=== PATIENT | male | born 1935 | race Caucasian/White ===

== ENCOUNTER 2020-11-19 11:27 | Inpatient (IN) | payer OTHER ==
--- NOTE | 2020-11-19 11:43 | R.PREADM ---
PRE-ADMISSION SCREENING FORM SCREENING DATE AND TIME 11/17/2020 12:09 (CDT) ANTICIPATED REHAB ADMISSION DATE 11/19/2020 REFERRING FACILITY [facility] REFERRAL DATE AND TIME 11/17/2020 12:09 (CDT) REFERRAL ROOM# [id number] ACUTE ADMIT DATE 11/19/2020 Previous Rehabilitation(s): No. ACUTE PRE PLANNING ADVISOR/DC COPIER REPAIR TECHNICIAN KRZYSZTOF GREENE ATTENDING PHYSICIAN ROBERTO ANDERSON MD REFERRING PHYSICIAN Víctor Patino REHAB FACILITY [facility] CLINICAL LIAISON [place]ata PHYSICIAN REVIEWER Dr. Carlos Webb M.D. MR# [id number] NAME DARYL MONTEZ ADDRESS [address] [facility] [address] DATE OF 1935 AGE 85 SSN# [id number] GENDER male MARITAL STATUS PREF. LANGUAGE (IF NON-YAKUT) German ADMIT FROM 02 - [facility] PRE-HOSPITAL LIVING SETTING 01 - Home (private home/apt. board/care, assisted living, nursing home, transitional living) HOME TYPE AND DETAILS Type of home: single family house # of levels in the residence: 1 # of steps within the residence: 0 # of steps to enter the residence: 0 PRE-HOSPITAL LIVING WITH Family/Relatives FAMILY SUPPORT Yes PRIMARY FAMILY CONTACT NAME LLOYD MONTEZ PRIMARY FAMILY CONTACT PHONE PRIMARY FAMILY CONTACT RELATIONSHIP Spouse PHONE PRIMARY FAMILY CONTACT ON ADM.? no IS PRIMARY FAMILY CONTACT AUTH. REP.? no 1ST EMERGENCY CONTACT LLOYD MONTEZ 1ST CONTACT PHONE 1ST CONTACT RELATIONSHIP Spouse PHONE 1ST CONTACT ON ADM. no IS 1ST CONTACT AUTH. REP.? no PHONE 2ND CONTACT ON ADM.? no PATIENT EMPLOYMENT STATUS Retired (for age) PATIENT EMPLOYER No Employer PAYOR INFORMATION: 1ST PAYOR NAME MEDICARE 1ST PAYOR PHONE 1ST PAYOR INJURY/ILLNESS DUE TO ACCIDENT? No ANOTHER LIBERTARIAN RESPONSIBLE? No PRIMARY REHAB/ACUTE DIAGNOSIS: ABSCESS OF LOWER LEG, FAILURE OF JOINT FUSION. 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 is a 85 yo Right-handed male. On 11/11/2020 he was admitted to [facility] with diagnosis ABSCESS OF LOWER LEG, FAILURE OF JOINT FUSI ON. RETAINED ORTH HARD. His impairment category is Orthopaedic Disorders 08 - Other Orthopaedic (08.9). Pre-morbidly, Pt. was independent/mod-I in Locomotion, Balance, Transfers Control, and Endurance; and he had good Sphincter Control. Currently, he has deficits of Transfers Control, Endurance, and Sphincter Control. Pt. is now referred to [facility] for acute in-patient rehabilitation in order to maximize patient's functional independence in activities of daily living, strength, ROM, and mobi lity. Patient has realistic goal of being discharged at assistance level 7-Ind to reside at Home with Fami ly/Relatives. PAST MEDICAL HISTORY AFIB hypercholestrolemia PNEUMONIA PROSTATE CANCER RENAL DISORDER STAGE 4 KIDNEY DISEASE PAST SURGICAL HISTORY: ANKLE SURGERY CORONARY ARTERY BYPASS GRAFT ARM SURGERY MEDICATION ALLERGIES: PENICILLIN ENVIRONMENTAL ALLERGIES: - Substance Allergies None Known - Other Allergies None Known CODE STATUS: Full code WEIGHT/HEIGHT/BMI: WEIGHT 204 lbs HEIGHT 6'2 BMI 26.2 DIET: - Diet Type Regular - Diet - Solid Texture Regular - Diet - Liquid Texture Regular - Tube Feed N/A REVIEW OF SYSTEMS: - Gen Alert and awake Lying in bed No apparent distress Oriented to: person, time, and place - Vital Signs Temperature: 98 F SBP/DBP: 131/65 Pulse: 68 Resp: 18 Vital signs stable, afebrile - CVS RRR VITAL SIGNS Temperature: 98 F SBP/DBP: 131/65 Pulse: 68 Resp: 18 Vital signs stable, afebrile MEDICATIONS/TREATMENT: Other- See attached MAR (Medication Administration Record). CURRENT SPHINCTER CONTROL: Pre-hospital bladder status: unspecified # of bladder accidents in the last 7 days prior to screenin Pre-hospital bowel status: unspecified # of bowel accidents in the last 7 days prior to screenin Last Bowel Movement Date: 11/17/2020 CURRENT LOCOMOTION STATUS: distance walked 5 feet DETAILED CURRENT FUNCTIONAL STATUS: - Bladder accident frequency: 7-Ind - No accidents in the past 7 days - Bowel accident frequency: 7-Ind - No accidents in the past 7 days - Walking score based on distance walked: 0(N/A) score based on distance walked: 1(<=50ft) - Wheelchair score based on distance traveled: 0(N/A) QI SCORES: - Self-Care A. Eating 03-Partial/moderate assistance B. Oral hygiene 03-Partial/moderate assistance C. Toileting hygiene 03-Partial/moderate assistance E. Shower/bathe self 03-Partial/moderate assistance F. Upper body dressing 03-Partial/moderate assistance G. Lower body dressing 03-Partial/moderate assistance H. Putting on/taking off footwear 88-Not attempted due to medical condition or safety concerns - Mobility A. Roll left and right 04-Supervision or touching assistance B. Sit to lying 04-Supervision or touching assistance C. Lying to sitting on side of bed 03-Partial/moderate assistance D. Sit to stand 03-Partial/moderate assistance E. Chair/bua-jy-gsuju transfer 03-Partial/moderate assistance F. Toilet transfer 03-Partial/moderate assistance G. Car transfer 88-Not attempted due to medical condition or safety concerns I. Walk 10 feet 88-Not attempted due to medical condition or safety concerns J. Walk 50 feet with two turns 88-Not attempted due to medical condition or safety concerns K. Walk 150 feet 88-Not attempted due to medical condition or safety concerns L. Walking 10 feet on uneven surfaces 88-Not attempted due to medical condition or safety concerns M. 1 step (curb) 88-Not attempted due to medical condition or safety concerns N. 4 steps O. 12 steps 88-Not attempted due to medical condition or safety concerns P. Picking up object 88-Not attempted due to medical condition or safety concerns R. Wheel 50 feet with two turns 88-Not attempted due to medical condition or safety concerns S. Wheel 150 feet 88-Not attempted due to medical condition or safety concerns - Bladder and Bowel Bladder continence Bowel continence - Endurance Fair - Balance Fair - Safety Awareness Fair CURRENT FUNC. DEFICITS: Self-Care, Mobility, Endurance, Balance, and Safety Awareness CURRENT / PREVIOUS ASSISTIVE DEVICES: Rolling Walker HISTORY OF FALLS. HAS THE PATIENT HAD TWO OR MORE FALLS IN THE PAST YEAR OR ANY FALL WITH INJURY IN T HE PAST YEAR?: No PRIOR SURGERY. DID THE PATIENT HAVE MAJOR SURGERY DURING THE 100 DAYS PRIOR TO ADMISSION?: No THERAPY NOTES FROM ACUTE CARE: Attached. SPECIAL NEEDS: - Safety Concerns Skin breakdown precautions needed due to skin breakdown risk PRECAUTIONS: - Weight Bearing Precaution NWB left LE PATIENT NEEDS ACTIVE AND ONGOING THERAPEUTIC INTERVENTION OF MULTIPLE THERAPY DISCIPLINES, INCLUDING: - Dietary and Nutrition Adequate Nutrition. Nutritional Education. Nutritional Supplements. PATIENT NEEDS CLOSE MEDICAL SUPERVISION BY A REHABILITATION PHYSICIAN FOR: Coordination of Treatment Team PATIENT REQUIRES 24X7 REHAB NURSING FOR MEDICAL AND FUNCTIONAL MGT. OF THE FOLLOWING DEFICITS: Disease Management Medication Management Patient/Family Education Providing Safe Environment PATIENT REQUIRES INTENSIVE, COORDINATED INTERDISCIPLINARY APPROACH TO REHAB: Arranging Home Equipment/Services Discharge Planning Family Intervention/Training Chief Catalyst Operator/Case Management PATIENT REHAB POTENTIAL: Robyn MONTEZ is able and expected to receive 3 hours of individualized therapy daily on at least 5 of ev alfredo 7 days Robyn MONTEZ's prognosis for significant practical improvement within a reasonable period of time appear s Good Expected level of measurable improvement will be of a practical value to Robyn MONTEZ's functional capac ity or adaptations to impairments Has a viable Discharge Plan Medically appropriate; condition is sufficiently stable to participate in intensive rehab program DISCHARGE PLAN: - Estimated Length of Stay (days) 12. - Consensus on plan Discharge plan has been discussed with primary caregiver. Patient/Family is in agreement with the berna n. Primary caregiver is in agreement with the plan. - Patient/Family Goals Return home independently. - Planned Living Setting Upon Discharge Home, to live with Family/Relatives. Transitional Living. RECOMMENDED CARE LEVEL: IRF RECOMMENDATION DETAILS: Recommended Admission to Comprehensive Rehabilitation Program to Increase Functional Darke SCREENER'S COMPLETENESS CONFIRMATION: - Screening Confirmation The patient data collection on this preadmission screening form is finished PHYSICIANS REVIEW AND ADMISSION DETERMINATION Admit - Based on my review of the Pre-Admission Screening results, in my medical judgment and experie nce, I concur with the findings and recommend admission to [facility], as this patient requires an IRF level of care. SIGNATURE PANEL: Male Model - [electronically] signed by Sun Mata on 11/19/2020 at 11:12 (CDT) Male Model - [electronically] signed by Shantanu Chacon PT on 11/19/2020 at 11:21 (CDT) Physician Reviewer - [electronically] signed by Dr. Carlos Webb M.D. on 11/19/2020 at 11:43 (CDT )
--- OUTSIDE RECORDS SUMMARY | 2020-11-19 17:51 | XMS REPORT | Continuity of Care Document ---
:1935 Author Organization [facility] t Address [address] [place] [address] Care Team Providers Name Role Phone UNKNOWN Primary Care Physician Unavailable Mónica Wolf MD Attending Clinician Attending Clinician Roddy Rodgers MD Attending Clinician Diego JAY AValentin Attending Clinician Alex Mullins MD Attending Clinician Demetrio Doe MD Attending Clinician MD MÓNICA WOLF Attending Clinician Unavailable April Buchanan Attending Clinician [phone] MÓNICA WOLF Attending Clinician Unavailable RAMIRO ESTRELLA M.D. Attending Clinician Unavailable LUCIANO Admitting Clinician Unavailable MD MÓNICA WOLF Admitting Clinician Unavailable MÓNICA WOLF Admitting Clinician Unavailable RAMIRO ESTRELLA M.D., S Admitting Clinician Unavailabl e Payers Payer Name Policy Type Policy Effective Date Expiration Date Sour ce Number MEDICAREMEDICARE PART [id number] 2000 Juan Jose rhea Encarnacion AND 00:00:00 [facility] [id number] 2000- [place] [id number] 2017 [place] [id number] 00:00:00 Met getachew 05/2017-PresentCommerc ial Problems Condition Condition Condition Status Onset Resolution Last Treating Co mments Source Name Details Category Date Date Treatment Clinician Date 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 00:00: st of left of left 00 ankle ankle Failure of Failure of Disease Active [place] joint joint 7-20 [facility] fusion fusion 00:00: st 00 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 7-20 Meth larissa of left of left 00:00: st ankle ankle 00 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-20 [facility] left left 00:00: st fibula fibula 00 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-20 [facility] left tibia left tibia 00:00: st 00 Abscess of Abscess of Disease Active [place] left lower left lower 7-19 Me [facility] leg leg 00:00: st 00 Retained Retained Disease Active [place] orthopedic orthopedic 7-19 Me th[facility] hardware hardware 00:00: st 00 Cellulitis Cellulitis Disease Active [place] of left of left 7-18 [facility] ankle ankle 00:00: st 00 Urinary Urinary Disease Active [facility] retention retention 4-05 [facility] - 00:[facility]: Medical 00 Center Hemorrhage Hemorrhage Disease Active Overview : [facility] due to due to 4-03 [facility] other other 00:00: blood Medical internal internal 00 loss Center device, device, anemia initial initial from encounter encounter fracture and from surgical blood loss. Fall Fall Disease Active [facility] 4- [facility] - 00:[facility] 00 Center Other Other Disease Active [facility] fracture fracture 07-26 [facility] - of right of right 00:00: Medica l femur, femur, 00 Center initial initial encounter encounter for closed for closed fracture fracture S/P right S/P right Disease Active [facility] hip hip 4 [facility] - fracture fracture 00:00: Medica l 00 Center Atrial Atrial Disease Active [facility] fibrillati fibrillati 07-26 Amarilis kes - on on 00:00: Medical Center Fracture, Fracture, Disease Active [facility] hip hip 07-26 [facility] Intertroch Intertroch Disease Active C [facility] anteric anteric 07-26 [facility] - fracture fracture 00:00: Medica l of right of right 00 Center hip, hip, closed, closed, initial initial encounter encounter Dehydratio Dehydratio Disease Active 2017-04 [place] n 2-31 Methodi 00:00: st 00 Long-term Long-term Problem Active [facility] drug Drug 2-27 da therapy Therapy 00:00: Medical 00 Group Dysuria Dysuria Problem Active 2016-04 [facility] 1-16 da 00:00: Medical 00 Group Liver Liver Problem Active 2016-04 [facility] enzymes Enzymes 1-16 da abnormal Abnormal 00:00: Medica l 00 Group 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[facility] [place] 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 Dyspnea Dyspnea Problem Active 2016-04 [facility] 0-31 da 00:00: Medical 00 Group Cough Cough Problem Active 2016-04 [facility] 0-31 da 00:00: Medical 00 Group Restless Restless Problem Active [facility] [facility] legs Legs 7-25 da 00:00: Medical 00 Group Hyperlipid Hyperlipid Problem Active [facility] emia emia da Medical Group Essential Essential Problem Active [facility] hypertensi Hypertensi da on on Medical Group 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 Artery Medical Group Acute Acute Problem Active [facility] bronchitis Bronchitis da Medical Group Neck pain Neck Pain Problem Active [facility] On On Problem Active [facility] examinatio Examinatio da n - n - Medical collapse - Collapse - Gr oup syncope Syncope Wheezing Wheezing Problem Active [facility] Allergies, Adverse Reactions, Alerts Allergy Allergy Status Severity Reaction(s) Onset Inactive Treating Comm ents Source Name Type Date Date Clinician Levoflox Propensi Active [facility] ac[facility] to 07-26 [facility] - adverse 00:00: Medical reaction 00 Center s Penicill Propensi Active [facility] ins ty to 07-26 [facility] - adverse 00:00: Medical reaction 00 Center s Penicill Propensi Active [place] 2017-04 [place] ins ty to [facility] adverse 00:00: st reaction 00 s to drug PENICILL Allergy Active [place] INS to da [facility] Medical e Group Social History Social Habit Start Date Stop Date Quantity Comments [facility] Std Drinks History [facility] Aleyda odist Alcohol Binge Exposure to Unable to assess [place] [facility] SARS-CoV-2 (event) Tobacco use and 2020-11-16 2020-11-16 Never used [facility] ethodist exposure 00:00:00 00:00:00 Alcohol intake 2020-11-16 2020-11-16 Current [facility] thodist 00:00:00 00:00:00 non-drinker of alcohol (finding) History SDOH 2018-04-27 2018-04-27 1 [place] Aleyda odist Alcohol Frequency 00:00:00 00:00:00 Sex Ass[birth year] At [birth year] [facility] ethodist 00:00:00 00:00:00 Smoking Status Start Date Stop Date Source Never smoker [place] Zuly t Medications Ordered Filled Start Stop Current Ordering Indication Dosage Frequency Signature Comments Components Source Medication Medication Date Date Medication? Clinician (SIG) Name Name rOPINIRole 2020- No 1mg QD Take 1 mg [place] (REQUIP) 11-19 by mouth Method i 0.5 MG 16:24: 00:[address] tablet 34 :00 apixaban 2020- No 5mg Q.5D Take 5 mg Wilner stoemanuel (ELIQUIS) 5 11-19 by mouth 2 M ethodi mg tablet 16:24: 00:00 (two) st 34 :00 times a day. furosemide 2020- No 20mg Q.5D Take 20 mg [place] (LASIX) 20 11-19- by mouth 2 Me thodi mg tablet 16:24: 00:00 (two) st 34 :00 times a day. aspirin Yes 81mg QD Take 81 mg [place] (ECOTRIN) - by mouth Method i 81 MG 16:24: daily. st enteric 32 coated tablet amIODarone Yes 200mg Q.5D Take 200 [place] (PACERONE) 7-26 mg by Methodi 200 MG 16:24: mouth 2 st tablet 32 (two) times a day. levothyroxi Yes 50ug QD Take 50 Wil[place] ston ne 7-26 mcg by Methodi (SYNTHROID) 16:24: mouth st 50 mcg 32 daily. tablet apixaban Yes 2.5mg Q.5D Take 1 [place] (ELIQUIS) - tablet Methodi 2.5 mg 00:00: (2.[address] tablet 00 total) by mouth 2 (two) times a day. ceFAZolin 2020- Yes 2g Q8H Infuse 50 [place] in 0.9% 11-19 09-02 mL (2 g Methodi sodium 00:00: 23:59 total) st chloride 00 :00 into a (ANCEF) 2 venous gram/50 mL catheter IVPB every 8 (eight) hours for 38 days. furosemide 2020- Yes 40mg Q.5D Take 1 [place] (LASIX) 40 11-19-25 tablet (40 Me thodi mg tablet 00:00: 23:59 mg total) st 00 :00 by mouth 2 (two) times a day for 30 days. rOPINIRole 2020- Yes 2mg QD Take 1 [place] (REQUIP) 2 11-19-25 tablet (2 Met hodi MG tablet 00:00: 23:59 mg total) st 00 :00 by mouth nightly for 30 days. lidocaine 2020- Yes 1{patch Q24H Place 1 [place] (LIDODERM) 11-19 } patch on Meth larissa 5 % 00:00: 23:[address] 00 :00 daily for 30 days. Remove & Discard patch within 12 hours or as directed by MD hartley- 2020- Yes 1{tbl} Q.5D Take 1 [place] docusate 11-19 08-25 tablet by Metho di sodium 00:00: 23:[address] (SENOKOT-S) 00 :00 (two) 8.6-50 mg times a per tablet day for 30 days. acetaminoph 2020- Yes acute pain 1{tbl} Q6H Take 1 [place] en-codeine 11-19 07-31 tablet by Met [place] (TYLENOL 00:00: 23:[address] WITH 00 :00 every 6 CODEINE #3) (six) 300-30 mg hours as per tablet needed for severe pain for up to 5 days .acute pain. meclizine 2020- No 12.5mg Q.5D Take 12.5 [place] (ANTIVERT) 7-18 07-18 mg by Joyi 12.5 mg 21:29: 00:[address] tablet 38 :00 (two) times a day. Morning and noon tamsulosin Yes .4mg QD Take 1 [facility] (FLOMAX) 4-20 capsule [facility] - 0.4 mg Cap 00:00: (0.4 mg Medi marylou 24 hr 00 total) by Center capsule mouth daily. methylPREDN Yes 40mg QD Inject [address] ISolone 4-20 mL (40 mg [facility] - (SOLU-MEDRO 00:00: total) Medi marylou L) 00 intravenou Center injection sly daily. 40 mg/mL amiodarone Yes 200mg QD Take [address] (PACERONE) 4-19 mg by [facility] - 200 MG 17:15: mouth Medical tablet 36 daily. [place] atorvastati Yes 20mg QD Take [address] n (LIPITOR) 4-19 by mouth Luke s - 20 MG 17:15: nightly. Medical tablet 36 [place] aspirin 81 Yes 81mg QD Take [address] MG EC 4-19 by mouth [facility] - tablet 17:15: daily. Medical 36 [place] levothyroxi Yes 25ug Take [address] ne 4-19 mcg by [facility] - (SYNTHROID, 17:15: mouth Medic al LEVOTHROID) 36 Every Center 25 MCG morning on tablet an empty stomach. metoprolol Yes 25mg QD Take [address] (LOPRESSOR) 4-19 by mouth Luke s - 25 MG 17:15: daily. Medical tablet 36 Center rOPINIRole Yes .5mg QD Take 0.[address] (REQUIP) 4-19 mg by [facility] - 0.5 MG 17:15: mouth Medical tablet 36 nightly. [place] apixaban Yes 5mg Q.5D Take [address] (ELIQUIS) 5 4-19 by mouth 2 [place] kes - mg Tab 17:15: (two) Medical tablet 36 times Center daily. furosemide Yes 40mg QD Take [address] (LASIX) 40 4-19 by mouth [facility] - MG tablet 17:15: daily. Medica l 36 Center phenol Yes 1{spray Use as [facility] (CHLORASEPT 4-19 } directed 1 [place] kes - IC) 1.4 % 00:00: spray in Medi marylou SprA oral 00 the mouth Cente r spray or throat as needed. metroNIDAZO Yes 500mg Inject [address] LE (FLAGYL) 4-19 mLs (500 Luke s - IVPB 500 mg 00:00: mg total) M edical in sodium 00 intravenou Cent er chloride sly every 0.9% (NS) 8 (eight) 100 mL hours. LORazepam Yes 1mg Inject 0.[address] (ATIVAN) 4-19 mLs (1 mg [facility] - injection 2 00:00: total) Medi marylou mg/mL 00 intravenou Center sly every 4 (four) hours as needed. Max Daily Amount: 6 mg aspirin aspirin No aspirin [facility] clopidogrel clopidogrel No clopidogre [facility] 75 mg 75 mg l 75 mg da tablet tablet tablet Medical Group furosemide furosemide No furosemide [facility] 20 mg 20 mg 20 mg da tablet TAKE tablet TAKE tablet Medical ONE (1) ONE (1) TAKE ONE Group TABLET(S) TABLET(S) (1) BY MOUTH BY MOUTH TABLET(S) ONCE A DAY. ONCE A DAY. BY MOUTH ONCE A DAY. Plavix Plavix No Plavix [facility] Proventil Proventil No 2puff(s Q4H Proventil [facility] HFA 90 HFA 90 ) HFA 90 da mcg/actuati mcg/actuati mcg/actuat Medical on aerosol on aerosol ion Mary up inhaler inhaler aerosol Inhale 2 Inhale 2 inhaler puffs every puffs every Inhale 2 4 hours by 4 hours by puffs inhalation inhalation every 4 route as route as hours by needed for needed for inhalation 30 days. 30 days. route as needed for 30 days. Requip 0.5 Requip 0.5 No 2 Q1D Requip 0.5 [facility] mg tablet mg tablet mg tablet da Take 2 Take 2 Take 2 Medical tablets tablets tablets Group every day every day every day by oral by oral by oral route at route at route at bedtime for bedtime for bedtime 30 days. 30 days. for 30 days. Immunizations Ordered Immunization Filled Immunization Date Status Commen ts Source Name Name [facility] Completed [place] [facility] VACCINATION 00:00:00 Methodis t MODERNA COVID-19 2020-05-08 Completed [place] [facility] VACCINATION 00:00:00 Methodis t FLUCELVAX QUAD PF 2018-05-11 Completed [place] 00:00:00 [facility] Tdap Tdap 2016-04-23 Completed [place] 16:43:19 Medical Group Vital Signs Vital Name Observation Time Observation Value Comments Source BP Diastolic 2019-09-13 00:00:00 69 mm[Hg] [facility] Height 2019-09-13 00:00:00 72 [facility]_i[facility] BMI (Body Mass 2019-09-13 00:00:00 26.4 [facility] BP Systolic 2019-09-13 00:00:00 143 mm[Hg] [facility] Body Weight 2019-09-13 00:00:00 195 [lb_av] [facility] BP Diastolic 2019-04-28 00:00:00 64 mm[Hg] [facility] Height 2019-04-28 00:00:00 72 [in_i] [facility] BMI (Body Mass 2019-04-28 00:00:00 26.7 kg/m2 [facility] Medical Index) Group BP Systolic 2019-04-28 00:00:00 159 mm[Hg] [facility] Body Weight 2019-04-28 00:00:00 197 [lb_av] [facility] BP Diastolic 2019-03-22 00:00:00 76 mm[Hg] [facility] Height 2019-03-22 00:00:00 72 [in_i] [facility] BMI (Body Mass 2019-03-22 00:00:00 29 kg/m2 [facility] Medical Index) Group BP Systolic 2019-03-22 00:00:00 120 mm[Hg] [facility] Body Weight 2019-03-22 00:00:00 214 [lb_av] [facility] BP Diastolic 2019-02-22 00:00:00 76 mm[Hg] [facility] Height 2019-02-22 00:00:00 72 [in_i] [facility] BMI (Body Mass 2019-02-22 00:00:00 29 kg/m2 [facility] Medical Index) Group BP Systolic 2019-02-22 00:00:00 120 mm[Hg] [facility] Body Weight 2019-02-22 00:00:00 214 [lb_av] [facility] BP Diastolic 2019-02-15 00:00:00 76 mm[Hg] [facility] Height 2019-02-15 00:00:00 72 [in_i] [facility] BMI (Body Mass 2019-02-15 00:00:00 29 kg/m2 [facility] Medical Index) Group BP Systolic 2019-02-15 00:00:00 120 mm[Hg] [facility] Body Weight 2019-02-15 00:00:00 214 [lb_av] [facility] BP Diastolic 2018-04-13 00:00:00 56 mm[Hg] [facility] BP Systolic 2018-04-13 00:00:00 110 mm[Hg] [facility] Body Weight 2018-04-13 00:00:00 214 [lb_av] [facility] Systolic blood 2020-11-19 14:37:17 105 mm[Hg] [place] [facility] pressure Diastolic blood 2020-11-19 14:37:17 56 mm[Hg] [place] [facility] pressure Heart rate 2020-11-19 14:37:17 61 /min Familia Bird Body temperature 2020-11-19 14:37:17 36.39 Ashly [place] [facility] Respiratory rate 2020-11-19 14:37:17 19 /min [place] [facility] Oxygen saturation in 2020-11-19 14:37:17 94 /min Familia Bird Arterial blood by Pulse oximetry Body weight 2020-11-19 05:00:00 91.309 kg Fam[facility] Bird BMI 2020-11-19 05:00:00 25.85 kg/m2 [facility] Bird Body height 2020-11-11 21:00:00 188 cm Fam[facility] Bird Procedures Procedure Date / Time Performing Clinician Source Performed PICC INSERTION REQUEST 2020-11-17 15:18:48 Juan Jose Franks [facility] Judi XR CHEST 1 VW PORTABLE 2020-11-17 14:51:17 Paul Wolf [facility] CBC WITH PLATELET AND 2020-11-17 05:08:00 [place] [facility] DIFFERENTIAL MANUAL DIFFERENTIAL 2020-11-17 05:08:00 Elisabet Walker on [facility] COVID-19 QUALITATIVE 2020-11-16 14:59:00 Paul Wolf on [facility] RT-PCR VANCOMYCIN LEVEL, TROUGH 2020-11-16 10:19:00 Elisabet Walker [facility] COMPREHENSIVE METABOLIC 2020-11-16 04:00:00 Elisabet Walker [place] [facility] PANEL CBC WITH PLATELET AND 2020-11-16 04:00:00 Elisabet Walker [facility] DIFFERENTIAL MAGNESIUM LEVEL 2020-11-16 04:00:00 Elisabet Wakler ethodist ESTIMATED GFR 2020-11-16 04:00:00 [place] ethodist MANUAL DIFFERENTIAL 2020-11-16 04:00:00 Elisabet Walker on [facility] XR CHEST 1 VW PORTABLE 2020-11-16 02:40:10 [place] cabreraton [facility] OR [place] < 1 HOUR 2020-11-15 15:35:46 AaronElisabet cabrera ethodist [place] AN ELECTIVE 2020-11-15 13:23:00 Vickey Hansen Me thodist SUPRAGLOTTIC AIRWAY DEBRIDEMENT, LOWER 2020-11-15 13:11:00 Andriy Cortez Yuki ethodist EXTREMITY CBC WITH PLATELET AND 2020-11-15 04:15:00 [place] viveros [facility] DIFFERENTIAL BASIC METABOLIC PANEL 2020-11-15 04:15:00 [place] Wilner felice [facility] ESTIMATED GFR 2020-11-15 04:15:00 Elisabet Walker ethodist MANUAL DIFFERENTIAL 2020-11-15 04:15:00 Elisabet Walkerankita on [facility] ECG 12-LEAD 2020-11-14 10:34:58 Ernst Melgar HC COMPLETE BLD COUNT 2020-11-14 05:29:00 [place]et cabrera felice [facility] W/AUTO DIFF BASIC METABOLIC PANEL 2020-11-14 05:29:00 [place]et Wilner viveros [facility] ESTIMATED GFR 2020-11-14 05:29:00 Elisabet Walker ethodist OR [place] < 1 HOUR 2020-11-13 17:36:00 Elisabet Walker ethodist FUNGUS SMEAR 2020-11-13 17:04:00 Andriy Cortez odist ANAEROBIC CULTURE 2020-11-13 17:04:00 Andriy Cortez Me thodist FUNGUS CULTURE 2020-11-13 17:04:00 Andriy Cortez Meth odist AFB STAIN 2020-11-13 17:04:00 Andriy Cortez Meth odist AEROBIC CULTURE 2020-11-13 17:04:00 Andriy Cortez Meth odist AFB CULTURE 2020-11-13 17:04:00 Andriy Cortez Meth odist [place] AN ELECTIVE 2020-11-13 16:39:17 Anuj Lawsonist SUPRAGLOTTIC AIRWAY B INCISION AND DRAINAGE, 2020-11-13 16:19:00 Andriy Cortez on [facility] ANKLE REMOVAL, HARDWARE, FOOT 2020-11-13 16:19:00 Andriy Cortez [facility] ABO AND RH CONFIRMATION 2020-11-13 12:40:00 Paul Wolf VANCOMYCIN LEVEL, TROUGH 2020-11-13 10:55:00 Paul Wolf XR CHEST 1 VW PORTABLE 2020-11-13 05:07:55 Paul Wolf [facility] HC COMPLETE BLD COUNT 2020-11-13 05:00:00 Elisabet Walker Wilner Bird W/AUTO DIFF PROTHROMBIN TIME WITH INR 2020-11-13 05:00:00 Paul Wolf TYPE AND SCREEN 2020-11-13 05:00:00 Paul Wolf Me thodist ESTIMATED GFR 2020-11-13 05:00:00 Paul Wolf Me thodist COMPREHENSIVE METABOLIC 2020-11-13 05:00:00 aPul Wolf PANEL C-REACTIVE PROTEIN 2020-11-13 05:00:00 Paul Wolf MAGNESIUM LEVEL 2020-11-13 05:00:00 Paul Wolf Me thodist SEDIMENTATION RATE 2020-11-13 05:00:[address] LOWER EXTREMITY WO 2020-11-12 21:34:24 Andriy Cortez [facility] CONTRAST LEFT TTE COMPLETE, W CONTRAST, 2020-11-12 15:00:00 Paul Wolf W DOPPLER ([id number]) COMPREHENSIVE METABOLIC 2020-11-12 05:09:00 Paul Wolf PANEL CBC WITH PLATELET AND 2020-11-12 05:09:00 Paul Wolf [facility] DIFFERENTIAL MAGNESIUM LEVEL 2020-11-12 05:09:00 Paul Wolf Me thodist ESTIMATED GFR 2020-11-12 05:09:00 Luciano, Paul Barbosa In thodist MANUAL DIFFERENTIAL 2020-11-12 05:09:00 Paul Wolf URINE CULTURE 2020-11-11 21:05:00 Paul Wolf In thodist BLOOD CULTURE, AEROBIC & 2020-11-11 20:21:00 Paul Wolf ANAEROBIC BLOOD CULTURE, AEROBIC & 2020-11-11 20:08:00 Paul Wolf ANAEROBIC URINALYSIS SCREEN AND 2020-11-11 19:56:00 Paul Wolf MICROSCOPY, WITH REFLEX TO CULTURE XR CHEST 1 VW PORTABLE 2020-11-11 18:47:20 Paul Wolf XR ANKLE 1VW LEFT 2020-11-11 18:46:56 Paul Wolf ARTERIAL BLOOD GAS 2020-11-11 18:34:00 Paul Wolf HC COMPLETE BLD COUNT 2020-11-11 18:19:00 Paul Wolf [facility] W/AUTO DIFF PROTHROMBIN TIME WITH INR 2020-11-11 18:19:00 Paul Wolf PARTIAL THROMBOPLASTIN 2020-11-11 18:19:00 Paul Wolf [facility] TIME (PTT) URIC ACID LEVEL 2020-11-11 18:19:00 Paul Wolf In thodist T4, FREE 2020-11-11 18:19:00 Paul Wolf In thodist THYROID STIMULATING 2020-11-11 18:19:00 Paul Wolf [facility] HORMONE PREALBUMIN LEVEL 2020-11-11 18:19:00 Paul Wolf ethodist PHOSPHORUS LEVEL 2020-11-11 18:19:00 Paul Wolf ethodist MAGNESIUM LEVEL 2020-11-11 18:19:00 Paul Wolf In thodist LIPID PANEL 2020-11-11 18:19:00 Paul Wolf In thodist LIPASE LEVEL 2020-11-11 18:19:00 Paul Wolf In thodist HEMOGLOBIN A1C 2020-11-11 18:19:00 Paul Wolf In thodist COMPREHENSIVE METABOLIC 2020-11-11 18:19:00 Paul Wolf Juan Jose wilkerson [facility] PANEL CREATINE KINASE, TOTAL 2020-11-11 18:19:00 Paul Wolfroyal viveros [facility] (CPK) B NATRIURETIC PEPTIDE 2020-11-11 18:19:00 Paul Wolfshantel mike [facility] AMYLASE LEVEL 2020-11-11 18:19:00 Paul Wolf In thodist ESTIMATED GFR 2020-11-11 18:19:00 Paul Wolf In thodist Plan of Care Planned Activity Planned Date Details Comments Source Future Scheduled 2020-12-[address] [facility] - Test 00:00:00 (#1) [code = Medical Center INFLUENZA VACCINE (#1)] Future Scheduled 2020-12-26 INFLUENZA VACCINE [place] [facility] Test 00:00:00 [code = INFLUENZA VACCINE] Future Scheduled 2020-04-[address] [facility] - Test 00:00:00 (12+) [code = Medical Center DEPRESSION SCREENING (12+)] Future Scheduled 2001-08-[address] [facility] - Test 00:00:00 WELLNESS (YEAR 2 or Medical Center FIRST YEAR if no IPPE) [code = MEDICARE ANNUAL WELLNESS (YEAR 2 or FIRST YEAR if no IPPE)] Future Scheduled 2000-09-08 PNEUMOCOCCAL 65+ YRS [facility] - Test 00:00:00 (1 of 1 - Medical Center [id number]) [code = PNEUMOCOCCAL 65+ YRS (1 of 1 - [id number])] Future Scheduled 1985-09-08 SHINGLES VACCINES ([address] [facility] - Test 00:00:00 of 2) [code = Medical Center SHINGLES VACCINES (1 of 2)] Future Scheduled 1985-09-08 SHINGLES VACCINES [place] [facility] Test 00:00:00 (#1) [code = SHINGLES VACCINES (#1)] Future Scheduled 1954-09-08 DTAP/TDAP/TD VACCINES [facility] - Test 00:00:00 (1 - Tdap) [code = Medical C enter DTAP/TDAP/TD VACCINES (1 - Tdap)] Future Scheduled 1947 COVID-19 VACCINE (1) [facility] - Test 00:00:00 [code = COVID-[address] VACCINE (1)] Future Scheduled 1941-09-08 65+ PNEUMOCOCCAL [place] [facility] Test 00:00:00 VACCINE (1 of 2 - PPSV23) [code = 65+ PNEUMOCOCCAL VACCINE (1 of 2 - PPSV23)] Medication 2020-11-[address] [facility] 00:00:00 (PROTONIX) 40 MG EC tablet [code = 208015] Medication 2020-11-20 polyethylene glycol [facility] 00:00:00 (MIRALAX) 17 gram packet [code = 456243] Encounters Start End Encounter Admission Attending Care Care Encounter Source Date/Time Date/Time Type Type Clinicians Facility Department ID 2020-11-11 2020-11-19 Inpatient PAUL WOLF [facility] [id number] [place] 00:00:00 00:00:[id number] 2020-08-14 2020-08-14 Outpatient Digna Buchanan [facility] [id number] 00:00:00 00:00:00 April [id number] 2020-06-20 2020-06-20 Outpatient Digna Buchanan [facility] [id number] 00:00:00 00:00:00 April [id number] 2019-09-13 2019-09-13 Cecil [place] - [id number] Yuki fisher 00:00:00 00:00:00 Discovery zahira Palemr MD: [address] [facility] [place] - [address], [place] [address] , Ph. 2019-04-28 2019-04-28 [facility] [place] - [id number] M at[place] 00:00:00 00:00:00 Discovery zahira Palmer MD: [address] [place] [id number] - [address], [place] [address] , Ph. 2019-03-22 2019-03-22 [facility] [place] - [id number] M atagor 00:00:00 00:00:00 Discovery zahira Palmer MD: [address] [place], [place] [id number] - [address], [place] [address] , Ph. 2019-02-22 2019-02-22 [facility] [place] - [id number] M at[place] 00:00:00 00:00:00 Discovery zahira Palmer MD: [address] [place], [place] [id number] - [address], [place] [address] , Ph. 2019-02-15 2019-02-15 [facility] [place] - [id number] M atagor 00:00:00 00:00:00 Discovery zahira Palmer MD: [address] [place], [place] [id number] - [address], [place] [address] , Ph. 2018-04-13 2018-04-13 [facility] [place] - [id number] M at[place] 00:00:00 00:00:00 Discovery zahira Palmer MD: [address] [place], [place] [id number] - [address], [place] [address] , Ph. 2018-03-23 2018-03-23 [facility] [place] - [id number] M atagor 00:00:00 00:00:00 Discovery zahira Palmer MD: [address] [place], [place] [id number] - [address], [place] [address] , Ph. Results Test Description Test Time Test Comments Results Result Comments Source Anaerobic culture 2020-11-18 08:09:46 Test Item Value Reference Range Interpretation Comme nts Anaerobic culture No anaerobic organisms Specimen InformationSpecimen isolate (test code = isolated. Source: WoundSpecimen Site: 552) Ankle: left ank le wound cultures [facility] [id number] 15:18:48HJudi Schneider RN 11/17/2020 3:22 PMPICC insertion Date/Time: 11/17/2020 3:18 PMPerformed by: Judi Franks, RNAuthorized by: Paul Wolf MD Consent: Consent obtained: Written Consent given by: Patient Risks discussed: Arterial puncture, incorrect placement, nerve damage, pneumothorax, infection, bleeding, superficial thrombus and deep vein thrombus Alternatives discussed: Referral, observation and alternative treatmentUniversal protocol: Procedure explained and questions answered to patient or proxy's satisfaction: yes Relevant documents present andverified: yes Test results available and properly labeled: yes Imaging studies available: yes Required blood products, implants, devices, and special equipment available: yes Site/side marked: yes Immediately prior to procedure, a time out was called: yes Patient identity confirmed:Verbally with patient, arm band and hospital-assigned identification numberPre-procedure details: Hand hygiene: Hand hygiene performed prior to insertion Sterile barrier technique: All elements of maximal sterile technique followed Skin preparation: 2% chlorhexidine and ChloraPrep Skin preparation agent: Completely dried prior to procedure Anesthesia (see MAR for exact dosages): Anesthesia method: Local infiltration Local anesthetic: Lidocaine 1% w/o epi Route administered: SubcutaneousPICC Line Placement Details: Extremity Circumference Upper (cm): 33 Extremity Circumference Site: 33 Patient position: Flat Indication: Known senior living IV therapy Location: Right brachial Catheter Lumens: Double lumen Catheter size: 4 Fr Catheter to vein ratio: 27PICC Characteristics: Catheter Brand: BD External Catheter Length (cm): 0 Internal Catheter Length (cm): 43 Total Catheter Length (cm): 43 Catheter Lot Number: [id number] Catheter Expiration Date: 2Procedure details: Ultrasound guidance: yes Sterile ultrasound techniques: Sterile gel and sterileprobe covers were used Number of attempts: 1 Number of PICC kits used during procedure: 1 Extra guide wire required?: No Purpose of procedure: PICC Placement Successful PICC Placement: yes Patency/Placement: Flushes without difficulty, flushed with 10 mL normal saline and positive blood return Dressing/Securement: Dressing dry and intact and antimicrobial dressing dry and intactPost-procedure details: Patient tolerance of procedure: Tolerated well, no immediate complications [facility] Vw [id number] 14:56:02Hm Interface, Radiology Results Incoming - 11/17/2020 2:59 PM CDT EXAMINATION: XR CHEST 1 VW PORTABLECLINICAL HISTORY: PICC TIP VERIFICATIONCOMPARISON: 11/16/2020IMPRESSION:1.Right-sided PICC line terminates over the cavoatrial region in satisfactory position.2.There are midline sternotomy wires. Left chest wall cardiac device. Cardiomediastinal silhouette is enlarged, stable. There are calcifications in a tortuous aorta.3.Lungs remain hypoinflated. There are some stable groundglass and reticular opacities bilaterally. There is no effusion or pneumothorax.[facility]-[id number] MethodistAFB [id number] 06:24:36 Test Item Value Reference Range Interpretation Comments AFB stain No acid fast Specimen (test code = bacilli (AFB) InformationSpe [facility] 676-7) seen. Source: WoundSp ecimen Site: Ankle: le ft ankle wound cultures [place] MethodistFungus [id number] 06:24:36 Test Item Value Reference Range Interpretation Comments Fungus smear No fungi Specimen (test code = observed. InformationSpec imen Source: 1443) WoundSpecimen S ite: Ankle: left ankle woun d cultures [facility] [id number] 06:24:36Gram stain isolateFew WBC'sFew Gram positive cocci in clusters Comment: Specimen InformationSpecimenSource: WoundSpecimen Site: Ankle: left ankle wound cultures [facility] [Presence] in Respiratory specimen by AZUCENA with probe [id number] 22:55:07 Test Item Value Reference Range Interpretation Comments SARS-CoV-2 (COVID-19) RNA Not detected Not-Detected [Presence] in Respiratory specimen by AZUECNA with probe detection (test code = 70591-3) Whether patient is employed in a healthcare setting (test code = 45745-3) Whether the patient has symptoms related to condition of interest (test code = 21983-0) Patient was hospitalized because of this condition (test code = 28197-7) Whether the patient was admitted to intensive care unit (ICU) for condition of interest (test code = 93142-4) Whether patient resides in a congregate care setting (test code = 56365-3) OR [place] < 1 [id number] 08:57:31Hm Interface, Radiology Results Incoming - 11/16/2020 9:00 AM CDT EXAMINATION: OR [place] < 1 HOURC-arm fluoroscopy was requested in OR. IMPRESSION:Intraoperative fluoroscopic images. Radiologist was not present during the examination.Separate operative report will be issued by the physician performing the procedure.[id number]_LT03[facility] MethodistECG 12 [id number] 22:59:20 Test Item Value Reference Range Interpretation Comments Ventricular rate (test 60 code = 253) Atrial rate (test code 60 = 255) QRSD interval (test 202 code = 260) QT interval (test code 542 = 264) QTC interval (test code 542 = 265) QRS axis 1 (test code = -73 268) T wave axis (test code 87 = 270) EKG impression (test Ventricular-paced code = 273) rhythm-Abnormal ECG-In automated comparison with ECG of 26-APR-2018 20:38,-Vent. rate has decreased BY 18 BPM[facility] CenterQhadnungtKqfkmo3572-86-09 13:23:00Vickey Hansen RN 11/15/2020 2:04 PMAirway Date/Time: 11/15/2020 1:23 PM Location: OR Performed by: ALBERTA/AAAnesthesiologist: Lanny Dobson DOResident/CHEMICAL PLANT TECHNICAL DIRECTOR/AA: Vickey Hansen DilipAuthorized by: Lanny Dobson DO Urgency: ElectiveDifficult Airway: No Preoxygenated with 100% O2: Yes C-spine Precautions Maintained Throughout: Yes Mask Ventilation: Not attemptedFinal Airway Type: Supraglottic airwayFinal LMA: UniqueLMA Size: 5Number of Attempts at Approach: 1 Atraumatic, dentition intact,Familia KjojskiwiJtvmqe8412-04-26 16:39:17Anuj Lawson CRNA 11/13/2020 4:39 PMAirway Date/Time: 11/13/2020 4:39 PM Location: ORPerformed by: CHEMICAL PLANT TECHNICAL DIRECTOR/AAAnesthesiologist: Perlita Rodgers MDResident/CHEMICAL PLANT TECHNICAL DIRECTOR/AA: nAuj Lawson CRNAAuthorized by: Perlita Rodgers MD Urgency: ElectiveDifficult Airway: No Preoxygenated with 100% O2: Yes C-spine Precautions Maintained Throughout: Yes Mask Ventilation: Easy maskFinal Airway Type: Supraglottic airwayFinal LMA: I-GelLMA Size: 4Number of Attempts at Approach: 1 Atraumatic. Dentition remains unchangedWoodland MethodistABO and Rh [id number] 13:04:00 Test Item Value Reference Range Interpretation Comments ABO grouping (test code = 883-9) A Rh type (test code = 37163-6) POS [place] MethodistUrine [id number] 07:53:28 Test Item Value Reference Range Interpretation Comments Urine culture Mixed adriel Specimen isolate (test <=10-3 col/cc InformationSp ecimen code = 25974-6) Source: Urin eSpecimen Site: Clean [facility] MethodistType and [id number] 07:24:00 Test Item Value Reference Range Interpretation Comments ABO grouping (test code = 883-9) A Rh type (test code = 54545-3) POS Antibody screen (gel) (test code = NEG 890-4) [place] MethodistCT Lower Extremity Wo Contrast [id number] 22:03:48Hm Interface, Radiology Results Incoming - 11/12/2020 10:07 PM CDT EXAMINATION: CT LOWER EXTREMITY WO CONTRAST LEFTCLINICAL HISTORY: Osteomyelitis suspected ankle no prior imaging, Evaluate for ankle abscess and osteomyelitis.TECHNIQUE: Multiple axial images of the lower extremity were obtained. 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 Multiple screws some of which are fractured. The majority of the tibiotalar joint demonstrates nonosseous union.2.Prominent hardware with screw tip protruding through the lateral talar process into the soft tissues.3.Skin thickening overlying the posterior lateral malleolus. No definite CT findings of osteolysis orbony destruction. 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 Partial fusion of the fibula to the talus.7.No soft tissue gas or fluid collections.[facility] MethodistTransthoracic Echocardiogram Complete, (w Contrast, Strain and 3D if needed)2020-11-12 17:42:07 Test Item Value Reference Range Interpretation Comments Ao Root Diameter (test 3.91 cm code = 5900602743) AoV Area, Vmax (test 2.07 cm2 code = 9619902893) AoV Area, VTI (test 2.11 cm2 code = 0146435632) AoV Mean PG (test code 6.07 mmHg = 8254138155) AoV Peak PG (test code 10.44 mmHg = 7471004633) AoV Vmax (test code = 1.69 m/s 9758410544) AoV VTI (test code = 0.35 m 2001993548) IVS,d (test code = 1.09 cm 0150168450) IVS/LVPW,2D (test code 1.30 = 4952806521) Left Atrium Dimension 5.65 cm Anterior (test code = 5278077026) LV,d (test code = 5.77 cm 8509867457) LV EF,2D (test code = 50.76 % 9918750489) LV,s (test code = 4.56 cm 5978787106) LVOT area (test code = 3.36 cm2 5910934990) LVOT Diam,S (test code 2.07 cm = 6573366489) LVOT Vmax (test code = 1.09 m/s 0227202140) LVOT VTI (test code = 0.25 m 0881041469) LVPWD,d (test code = 0.83 cm 7631390889) PV Pk Grad (test code 2.19 mmHg = 9945428542) PV VMAX (test code = 0.74 m/s 6920263755) RVOT Vmax (test code = 0.54 m/s 4449961737) TR Vpeak (test code = 2.83 mm/s 9314867730) MV E A ratio (test 0.65 code = 9692786764) TR pk grad (test code 27.74 mmHg = 6719447651) E wave decelartion 307.11 msec time (test code = 1170830820) MV Peak A Brad (test 0.76 m/s code = 9395883228) MV valve area p 1/2 2.66 cm2 method (test code = 5211462260) MV Peak E Brad (test 0.53 m/s code = 2514185053) MV stenosis pressure 82.79 ms 1/2 time (test code = 6275560374) LVOT stroke volume 0.84 cm3 (test code = 2792619618) AV LVOT peak gradient 3.98 mmHg (test code = 7902169086) Ao Root Diameter (test 3.91 cm code = 7809421401) LV SYS VOL (test code 95.21 ml = 7573424802) LV SOTOMAYOR VOL (test code 164.65 ml = 6482115918) LA area s A4C (test 32.24 cm2 code = 9217839793) LV SV Teich 2D (test 69.43 ml code = 8279911912) LV Vol s Teich PSAX 95.21 ml (test code = 9924721693) RVOT pk grad (test 1.16 mmHg code = 8514012338) AoV Vmn (test code = 1.18 9696339099) LV FS Teich 2D (test 21.04 code = 9972498767) MV AE ratio (test code 1.54 = 6815441642) LV FS Cube 2D (test 21.04 code = 7960453606) LVOT Vmn (test code = 0.65 4904587798) Aov area Vmn (test 1.97 cm2 code = 7631240676) LVOT mean grad (test 2.22 mmHg code = 1473646655) MAX Pred HR (test code 134.82 = 9692887544) 85 of MPHR (test code 114.60 = 3311016327) Calc MPHR (test code = 134.82 bpm 5641226482) LV SV Cube 2D (test 97.56 ml code = 7794204670) LV vol d cube 2D (test 192.19 ml code = 8868375925) LV vol s cube 2D (test 94.63 ml code = 2446514641) MV Decel slope (test 1.74 m/s2 code = 8727073982) Pred Exer Dur R1 (test 4.84 code = 2777994727) Pred METS R1 (test 5.22 code = 5497995374) LA Vol MOD A4C (test 114.41 ml code = 4675420169) Velocity Ratio (V1/V2) 0.64 m/s (test code = 4689) EF (test code = 42.17 % 9560472454) E/A ratio (test code = 0.70 5944596480) LVOT VTI (CM) (test 25.00 cm code = 5363463826) CAMMY (test code = CAMMY) The left ventricle is enlarged with an EF~40%. Normal right ventricular size and function.The aortic valve is sclerotic.The mitral valve is thickened. Structurally normal tricuspid valve and pulmonic valve. Left atrial enlargement. Normal pericardium with no effusion.Grade 1 diastolic dysfunction. 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 Priortibiotalar fusion, with multiple screws in place.Soft tissue edema throughout the left ankle. No large focus of osseous erosion is identified; there could be chronic periostitis involving the distal medial tibia. Overall, single view ankle radiograph is highly limited in the detection of osteomyelitis.Vascular calcifications.[id number]_PS08[place] MethodistBLOOD GAS, [id number] 12:05:00 Test Item Value Reference Range Interpretation Comments PH ARTERIAL (BEAKER) (test code = 7.50 7.35-7.45 H 383) PCO2 ARTERIAL (BEAKER) (test code 50 mmHg 35-45 H = 384) PO2 ARTERIAL (BEAKER) (test code 118 mmHg 80-90 H = 385) O2 SATURATION ARTERIAL (BEAKER) 98.6 % 96.0-97.0 H (test code = 386) HCO3 ARTERIAL (BEAKER) (test code 38 mmol/L 21-29 H = 388) BASE EXCESS ARTERIAL (BEAKER) 13.4 mmol/L -2.0-3.0 H (test code = 387) PATIENT TEMPERATURE (BEAKER) 36.6 C (test code = 1818) FIO2 (BEAKER) (test code = 1819) 50.0 % RAD, CHEST, 1 VIEW, NON [id number] 11:18:00Reason for exam:->PNAShould this be performed at the bedside?->YesFINAL REPORT Chest one view. Clinical history: PNA Comparison: 08/11/2018 Discussion: A frontal chest is provided. Cardiomediastinal contours are unchanged. Lines and tubes arein stable position. Interstitial airspace disease appear grossly unchanged. No pneumothorax. Smallright effusion. Signed: Anu Garcia Verified Date/Time: 08/12/2018 11:18:04 Reading Location:[facility] Radiology Reading Room COMPREHENSIVE METABOLIC [id number] 07:09:00 Test Item Value Reference Range Interpretation Comments TOTAL PROTEIN 4.1 gm/dL 6.0-8.5 L (BEAKER) (test code = 770) ALBUMIN (BEAKER) 2.2 g/dL 3.5-5.0 L (test code = 1145) ALKALINE PHOSPHATASE 193 U/L 30-115 H (BEAKER) (test code = 346) BILIRUBIN TOTAL 2.5 mg/dL 0.1-1.2 H (BEAKER) (test code = 377) SODIUM (BEAKER) (test 140 meq/L 135-148 code = 381) POTASSIUM (BEAKER) 3.2 meq/L 3.6-5.5 L (test code = 379) CHLORIDE (BEAKER) 97 meq/L 98-106 L (test code = 382) CO2 (BEAKER) (test 36 meq/L 20-29 H code = 355) BLOOD UREA NITROGEN 32 mg/dL 10-26 H (BEAKER) (test code = 354) CREATININE (BEAKER) 1.03 mg/dL 0.50-1.20 (test code = 358) GLUCOSE RANDOM 105 mg/dL 70-110 (BEAKER) (test code = 652) CALCIUM (BEAKER) 7.4 mg/dL 8.5-10.5 L (test code = 697) AST (SGOT) (BEAKER) 156 U/L 5-40 H (test code = 353) ALT (SGPT) (BEAKER) 412 U/L 5-50 H (test code = 347) EGFR (BEAKER) (test 69 mL/min/1.73 ESTIMA CINTHYA GFR IS code = 1092) sq m NOT ACCURATE CREATININE CLEARANCE IN PREDICTING GLOMERULAR FILTRATION RATE . ESTIMATED GFR I S NOT APPLICABLE FOR DIALYSIS PATIEN TS. Specimen slightly [id number] 06:46:00 Test Item Value Reference Range Interpretation Comments MAGNESIUM (BEAKER) (test code = 1.7 mg/dL 1.5-3.0 627) CBC W/PLT COUNT & AUTO [id number] 06:42:00 Test Item Value Reference Range Interpretation Comments WHITE BLOOD CELL COUNT (BEAKER) 25.0 K/ L 4.0-10.0 H (test code = 775) RED BLOOD CELL COUNT (BEAKER) 3.14 M/ L 4.20-5.80 L (test code = 761) HEMOGLOBIN (BEAKER) (test code = 9.5 GM/DL 13.0-16.8 L 410) HEMATOCRIT (BEAKER) (test code = 29.0 % 36.0-50.0 L 411) MEAN CORPUSCULAR VOLUME (BEAKER) 92.4 fL 82.0-99.0 (test code = 753) MEAN CORPUSCULAR HEMOGLOBIN 30.3 pg 27.0-33.0 (BEAKER) (test code = 751) MEAN CORPUSCULAR HEMOGLOBIN CONC 32.8 GM/DL 32.0-36.0 (BEAKER) (test code = 752) RED CELL DISTRIBUTION WIDTH 16.2 % 12.0-15.0 H (BEAKER) (test code = 412) PLATELET COUNT (BEAKER) (test 214 K/CU MM 150-430 code = 756) MEAN PLATELET VOLUME (BEAKER) 11.7 fL 6.0-11.5 H (test code = 754) NUCLEATED RED BLOOD CELLS 0 /100 WBC 0-0 (BEAKER) (test code = 413) NEUTROPHILS RELATIVE PERCENT 89 % (BEAKER) (test code = 429) LYMPHOCYTES RELATIVE PERCENT 3 % (BEAKER) (test code = 430) MONOCYTES RELATIVE PERCENT 6 % (BEAKER) (test code = 431) EOSINOPHILS RELATIVE PERCENT 0 % (BEAKER) (test code = 432) BASOPHILS RELATIVE PERCENT 0 % (BEAKER) (test code = 437) NEUTROPHILS ABSOLUTE COUNT 22.28 K/ L 1.80-8.00 H (BEAKER) (test code = 670) LYMPHOCYTES ABSOLUTE COUNT 0.76 K/ L 1.48-4.50 L (BEAKER) (test code = 414) MONOCYTES ABSOLUTE COUNT (BEAKER) 1.61 K/ L 0.00-1.30 H (test code = 415) EOSINOPHILS ABSOLUTE COUNT 0.06 K/ L 0.00-0.50 (BEAKER) (test code = 416) BASOPHILS ABSOLUTE COUNT (BEAKER) 0.02 K/ L 0.00-0.20 (test code = 417) IMMATURE GRANULOCYTES-RELATIVE 1 % 0-0 H PERCENT (BEAKER) (test code = 2801) POCT-GLUCOSE [id number] 00:07:00 Test Item Value Reference Range Interpretation Comments POC-GLUCOSE METER 185 mg/dL 70-110 H TESTED AT [address] (BEAKER) (test code [address] [facility] [place] = 1538) [address] RAD, CHEST, 1 VIEW, NON [id number] 17:19:00Reason for exam:- >PneumoniaShould this be performed at the bedside?->YesFINAL REPORT AP chest HISTORY: Pneumonia. COMPARISON: 08/08/2018. IMPRESSION: Left AICD present. Cardiomegaly. Interstitial edema unchanged. No pneumothorax. Signed: Patricia Ewingort Verified Date/Time: 08/11/2018 17:19:46 Reading Location: [facility] Reading Room HEPATITIS PANEL, ACUTE 2018-08-11 11:19:00 Test Item Value Reference Range Interpretation Comments HEPATITIS A IGM ANTIBODY (BEAKER) Nonreactive Nonreactive (test code = 498) HEPATITIS B CORE IGM ANTIBODY Nonreactive Nonreactive (BEAKER) (test code = 645) HEPATITIS C ANTIBODY (BEAKER) Nonreactive Nonreactive (test code = 367) HEPATITIS B SURFACE ANTIGEN (2) Nonreactive Nonreactive (BEAKER) (test code = 2585) COMPREHENSIVE METABOLIC [id number] 06:28:00 Test Item Value Reference Range Interpretation Comments TOTAL PROTEIN 4.2 gm/dL 6.0-8.5 L (BEAKER) (test code = 770) ALBUMIN (BEAKER) 2.2 g/dL 3.5-5.0 L (test code = 1145) ALKALINE PHOSPHATASE 222 U/L 30-115 H (BEAKER) (test code = 346) BILIRUBIN TOTAL 3.0 mg/dL 0.1-1.2 H (BEAKER) (test code = 377) SODIUM (BEAKER) (test 139 meq/L 135-148 code = 381) POTASSIUM (BEAKER) 4.0 meq/L 3.6-5.5 (test code = 379) CHLORIDE (BEAKER) 97 meq/L 98-106 L (test code = 382) CO2 (BEAKER) (test 33 meq/L 20-29 H code = 355) BLOOD UREA NITROGEN 34 mg/dL 10-26 H (BEAKER) (test code = 354) CREATININE (BEAKER) 1.05 mg/dL 0.50-1.20 (test code = 358) GLUCOSE RANDOM 144 mg/dL 70-110 H (BEAKER) (test code = 652) CALCIUM (BEAKER) 7.2 mg/dL 8.5-10.5 L (test code = 697) AST (SGOT) (BEAKER) 280 U/L 5-40 H (test code = 353) ALT (SGPT) (BEAKER) 503 U/L 5-50 H (test code = 347) EGFR (BEAKER) (test 68 mL/min/1.73 ESTIMA CINTHYA GFR IS code = 1092) sq m NOT ACCURATE CREATININE CLEARANCE IN PREDICTING GLOMERULAR FILTRATION RATE . ESTIMATED GFR I S NOT APPLICABLE FOR DIALYSIS PATIEN TS. Specimen slightly [id number] 06:13:00 Test Item Value Reference Range Interpretation Comments MAGNESIUM (BEAKER) (test code = 1.9 mg/dL 1.5-3.0 627) CBC W/PLT COUNT & AUTO [id number] 06:01:00 Test Item Value Reference Range Interpretation Comments WHITE BLOOD CELL COUNT (BEAKER) 25.4 K/ L 4.0-10.0 H (test code = 775) RED BLOOD CELL COUNT (BEAKER) 3.20 M/ L 4.20-5.80 L (test code = 761) HEMOGLOBIN (BEAKER) (test code = 9.7 GM/DL 13.0-16.8 L 410) HEMATOCRIT (BEAKER) (test code = 29.4 % 36.0-50.0 L 411) MEAN CORPUSCULAR VOLUME (BEAKER) 91.9 fL 82.0-99.0 (test code = 753) MEAN CORPUSCULAR HEMOGLOBIN 30.3 pg 27.0-33.0 (BEAKER) (test code = 751) MEAN CORPUSCULAR HEMOGLOBIN CONC 33.0 GM/DL 32.0-36.0 (BEAKER) (test code = 752) RED CELL DISTRIBUTION WIDTH 15.9 % 12.0-15.0 H (BEAKER) (test code = 412) PLATELET COUNT (BEAKER) (test 226 K/CU MM 150-430 code = 756) MEAN PLATELET VOLUME (BEAKER) 11.9 fL 6.0-11.5 H (test code = 754) NUCLEATED RED BLOOD CELLS 0 /100 WBC 0-0 (BEAKER) (test code = 413) NEUTROPHILS RELATIVE PERCENT 95 % (BEAKER) (test code = 429) LYMPHOCYTES RELATIVE PERCENT 1 % (BEAKER) (test code = 430) MONOCYTES RELATIVE PERCENT 4 % (BEAKER) (test code = 431) EOSINOPHILS RELATIVE PERCENT 0 % (BEAKER) (test code = 432) BASOPHILS RELATIVE PERCENT 0 % (BEAKER) (test code = 437) NEUTROPHILS ABSOLUTE COUNT 24.01 K/ L 1.80-8.00 H (BEAKER) (test code = 670) LYMPHOCYTES ABSOLUTE COUNT 0.18 K/ L 1.48-4.50 L (BEAKER) (test code = 414) MONOCYTES ABSOLUTE COUNT (BEAKER) 0.88 K/ L 0.00-1.30 (test code = 415) EOSINOPHILS ABSOLUTE COUNT 0.00 K/ L 0.00-0.50 (BEAKER) (test code = 416) BASOPHILS ABSOLUTE COUNT (BEAKER) 0.03 K/ L 0.00-0.20 (test code = 417) IMMATURE GRANULOCYTES-RELATIVE 1 % 0-0 H PERCENT (BEAKER) (test code = 2801) HEPATOBILIARY IMAGING W/ [id number] 16:06:00Reason for exam:->RUQ pain FINAL REPORT PROCEDURE: HEPATOBILIARY SCAN with Sincalide Stimulation CPT CODE: 37269 INDICATION: Right upper quadrant pain PROTOCOL: 6.4 mCi of Tc-99m mebrofenin was injected intravenously. Images of the upper abdomen were obtained for approximately 60 minutes after tracer injection. 1.6 micrograms (0.02 ugm/kg) of sincalide was then injected intravenously over 30 minutes with concurrent imaging during that time. FINDINGS: Initial tracer uptakeinto the liver is physiological. Subsequent tracer clearance from the liver is delayed, particularlyin the right lobe. There is good visualization of the extrahepatic biliary duct and the gallbladder,and the tracer appears appropriately in the small bowel. Following injection of sincalide, serial images show good emptying of gallbladder contents into the small bowel. There is 41% emptying of the gallbladder (Lower limit of normal = 35%). IMPRESSION: 1.There is normal gallbladder filling and normal emptying in response to sincalide stimulation.2.Delayed hepatic washout described above, compatible with nonspecific hepatocellular dysfunction. Signed: Marifer Arceo MDReport Verified Date/Time: 08/10/2018 16:06:09 Reading Location: [address] Reading Room COMPREHENSIVE METABOLIC PANEL 2018-08-10 07:30:00 Test Item Value Reference Range Interpretation Comments TOTAL PROTEIN 4.1 gm/dL 6.0-8.5 L (BEAKER) (test code = 770) ALBUMIN (BEAKER) 2.1 g/dL 3.5-5.0 L (test code = 1145) ALKALINE PHOSPHATASE 170 U/L 30-115 H (BEAKER) (test code = 346) BILIRUBIN TOTAL 3.1 mg/dL 0.1-1.2 H (BEAKER) (test code = 377) SODIUM (BEAKER) (test 136 meq/L 135-148 code = 381) POTASSIUM (BEAKER) 3.6 meq/L 3.6-5.5 (test code = 379) CHLORIDE (BEAKER) 94 meq/L 98-106 L (test code = 382) CO2 (BEAKER) (test 32 meq/L 20-29 H code = 355) BLOOD UREA NITROGEN 35 mg/dL 10-26 H (BEAKER) (test code = 354) CREATININE (BEAKER) 1.08 mg/dL 0.50-1.20 (test code = 358) GLUCOSE RANDOM 161 mg/dL 70-110 H (BEAKER) (test code = 652) CALCIUM (BEAKER) 7.4 mg/dL 8.5-10.5 L (test code = 697) AST (SGOT) (BEAKER) 355 U/L 5-40 H (test code = 353) ALT (SGPT) (BEAKER) 550 U/L 5-50 H (test code = 347) EGFR (BEAKER) (test 65 mL/min/1.73 ESTIMA CINTHYA GFR IS code = 1092) sq m NOT ACCURATE CREATININE CLEARANCE IN PREDICTING GLOMERULAR FILTRATION RATE . ESTIMATED GFR I S NOT APPLICABLE FOR DIALYSIS PATIEN TS. Specimen slightly [id number] 07:21:00 Test Item Value Reference Range Interpretation Comments MAGNESIUM (BEAKER) (test code = 1.9 mg/dL 1.5-3.0 627) CBC W/PLT COUNT & AUTO [id number] 07:13:00 Test Item Value Reference Range Interpretation Comments WHITE BLOOD CELL COUNT (BEAKER) 24.4 K/ L 4.0-10.0 H (test code = 775) RED BLOOD CELL COUNT (BEAKER) 3.09 M/ L 4.20-5.80 L (test code = 761) HEMOGLOBIN (BEAKER) (test code = 9.0 GM/DL 13.0-16.8 L 410) HEMATOCRIT (BEAKER) (test code = 28.7 % 36.0-50.0 L 411) MEAN CORPUSCULAR VOLUME (BEAKER) 92.9 fL 82.0-99.0 (test code = 753) MEAN CORPUSCULAR HEMOGLOBIN 29.1 pg 27.0-33.0 (BEAKER) (test code = 751) MEAN CORPUSCULAR HEMOGLOBIN CONC 31.4 GM/DL 32.0-36.0 L (BEAKER) (test code = 752) RED CELL DISTRIBUTION WIDTH 15.8 % 12.0-15.0 H (BEAKER) (test code = 412) PLATELET COUNT (BEAKER) (test 218 K/CU MM 150-430 code = 756) MEAN PLATELET VOLUME (BEAKER) 11.7 fL 6.0-11.5 H (test code = 754) NUCLEATED RED BLOOD CELLS 0 /100 WBC 0-0 (BEAKER) (test code = 413) NEUTROPHILS RELATIVE PERCENT 93 % (BEAKER) (test code = 429) LYMPHOCYTES RELATIVE PERCENT 1 % (BEAKER) (test code = 430) MONOCYTES RELATIVE PERCENT 4 % (BEAKER) (test code = 431) EOSINOPHILS RELATIVE PERCENT 0 % (BEAKER) (test code = 432) BASOPHILS RELATIVE PERCENT 0 % (BEAKER) (test code = 437) NEUTROPHILS ABSOLUTE COUNT 22.75 K/ L 1.80-8.00 H (BEAKER) (test code = 670) LYMPHOCYTES ABSOLUTE COUNT 0.27 K/ L 1.48-4.50 L (BEAKER) (test code = 414) MONOCYTES ABSOLUTE COUNT (BEAKER) 1.05 K/ L 0.00-1.30 (test code = 415) EOSINOPHILS ABSOLUTE COUNT 0.00 K/ L 0.00-0.50 (BEAKER) (test code = 416) BASOPHILS ABSOLUTE COUNT (BEAKER) 0.02 K/ L 0.00-0.20 (test code = 417) IMMATURE GRANULOCYTES-RELATIVE 1 % 0-0 H PERCENT (BEAKER) (test code = 2801) U/S, ABDOMINAL, [id number] 23:52:00Abdomen limited area? Add comment if clarification is needed.->Right upper quadrantReason for exam:->Abnormal LFTFINAL REPORT History: Abnormal liver function tests Abdominal ultrasound dated 08/09/2018 Comparison: None Comment: Real-time transabdominal ultrasound of the right upper quadrant abdomen was performed. Liver: 15.0 cm , normal. Normal echogenicity. No focal lesions. Gallbladder: Cholelithiasis. Diffuse gallbladder wall thickening, measuring 6 mm. No perocholecystic fluid.. Nosonographic Ashraf's sign. The transverse diameter of the gallbladder lumen is 2.8 cm. Biliary tree:No intrahepatic ductal dilatation. CBD: 4 mm. MPV: 10 mm Pancreas: Unremarkable. Right kidney: 10.5 x 4.7 x 5.6 cm. Normal echogenicity. The visualized abdominal aorta is normal in caliber. The IVCand Hepatic veins are patent. Impression: Cholelithiasis and gallbladder wall thickening. Further evaluation with hepatobiliary nuclear medicine imaging can be performed if acute cholecystitis remainsa clinical question. Signed: Jo Ann Dudley MDReport Verified Date/Time: 08/09/2018 23:52:37 ReadingLocation: [address] Reading Room POCT- GLUCOSE [id number] 21:20:00 Test Item Value Reference Range Interpretation Comments POC-GLUCOSE METER 190 mg/dL 70-110 H TESTED AT [address] ([facility]) (test code [facility] = 1538) [id number] POCT-GLUCOSE [id number] 16:44:00 Test Item Value Reference Range Interpretation Comments POC-GLUCOSE METER 209 mg/dL 70-110 H TESTED AT [address] ([facility]) (test code [facility] = 1538) [id number] POCT-GLUCOSE [id number] 12:14:00 Test Item Value Reference Range Interpretation Comments POC-GLUCOSE METER 173 mg/dL 70-110 H TESTED AT [address] ([facility]) (test code [facility] = 1538) [id number] CBC W/PLT COUNT & AUTO [id number] 08:52:00 Test Item Value Reference Range Interpretation Comments WHITE BLOOD CELL COUNT ([facility]) 25.5 K/ L 4.0-10.0 H (test code = 775) RED BLOOD CELL COUNT ([facility]) 3.38 M/ L 4.20-5.80 L (test code = 761) HEMOGLOBIN (BEAKER) (test code = 9.9 GM/DL 13.0-16.8 L 410) HEMATOCRIT ([facility]) (test code = 31.4 % 36.0-50.0 L 411) MEAN CORPUSCULAR VOLUME (BEAKER) 92.9 fL 82.0-99.0 (test code = 753) MEAN CORPUSCULAR HEMOGLOBIN 29.3 pg 27.0-33.0 (BEAKER) (test code = 751) MEAN CORPUSCULAR HEMOGLOBIN CONC 31.5 GM/DL 32.0-36.0 L (BEAKER) (test code = 752) RED CELL DISTRIBUTION WIDTH 15.6 % 12.0-15.0 H (BEAKER) (test code = 412) PLATELET COUNT (BEAKER) (test 234 K/CU MM 150-430 code = 756) MEAN PLATELET VOLUME (BEAKER) 11.6 fL 6.0-11.5 H (test code = 754) NUCLEATED RED BLOOD CELLS 0 /100 WBC 0-0 (BEAKER) (test code = 413) NEUTROPHILS RELATIVE PERCENT 93 % (BEAKER) (test code = 429) LYMPHOCYTES RELATIVE PERCENT 1 % (BEAKER) (test code = 430) MONOCYTES RELATIVE PERCENT 5 % (BEAKER) (test code = 431) EOSINOPHILS RELATIVE PERCENT 0 % (BEAKER) (test code = 432) BASOPHILS RELATIVE PERCENT 0 % (BEAKER) (test code = 437) NEUTROPHILS ABSOLUTE COUNT 23.70 K/ L 1.80-8.00 H (BEAKER) (test code = 670) LYMPHOCYTES ABSOLUTE COUNT 0.27 K/ L 1.48-4.50 L (BEAKER) (test code = 414) MONOCYTES ABSOLUTE COUNT (BEAKER) 1.24 K/ L 0.00-1.30 (test code = 415) EOSINOPHILS ABSOLUTE COUNT 0.00 K/ L 0.00-0.50 (BEAKER) (test code = 416) BASOPHILS ABSOLUTE COUNT (BEAKER) 0.03 K/ L 0.00-0.20 (test code = 417) IMMATURE GRANULOCYTES-RELATIVE 1 % 0-0 H PERCENT (BEAKER) (test code = 2801) POCT-GLUCOSE [id number] 08:13:00 Test Item Value Reference Range Interpretation Comments POC-GLUCOSE METER 160 mg/dL 70-110 H TESTED AT [facility] (BEAKER) (test code [facility] [place] = 1538) [id number] COMPREHENSIVE METABOLIC [id number] 06:13:00 Test Item Value Reference Range Interpretation Comments TOTAL PROTEIN 4.0 gm/dL 6.0-8.5 L (BEAKER) (test code = 770) ALBUMIN (BEAKER) 2.1 g/dL 3.5-5.0 L (test code = 1145) ALKALINE PHOSPHATASE 161 U/L 30-115 H (BEAKER) (test code = 346) BILIRUBIN TOTAL 4.1 mg/dL 0.1-1.2 H (BEAKER) (test code = 377) SODIUM (BEAKER) (test 137 meq/L 135-148 code = 381) POTASSIUM (BEAKER) 3.6 meq/L 3.6-5.5 (test code = 379) CHLORIDE (BEAKER) 94 meq/L 98-106 L (test code = 382) CO2 (BEAKER) (test 33 meq/L 20-29 H code = 355) BLOOD UREA NITROGEN 37 mg/dL 10-26 H (BEAKER) (test code = 354) CREATININE (BEAKER) 1.03 mg/dL 0.50-1.20 (test code = 358) GLUCOSE RANDOM 142 mg/dL 70-110 H (BEAKER) (test code = 652) CALCIUM (BEAKER) 7.4 mg/dL 8.5-10.5 L (test code = 697) AST (SGOT) (BEAKER) 543 U/L 5-40 H (test code = 353) ALT (SGPT) (BEAKER) 614 U/L 5-50 H (test code = 347) EGFR (BEAKER) (test 69 mL/min/1.73 ESTIMA CINTHYA GFR IS code = 1092) sq m NOT ACCURATE CREATININE CLEARANCE IN PREDICTING GLOMERULAR FILTRATION RATE . ESTIMATED GFR I S NOT APPLICABLE FOR DIALYSIS PATIEN TS. Specimen slightly ictericPOCT-GLUCOSE [id number] 21:32:00 Test Item Value Reference Range Interpretation Comments POC-GLUCOSE METER 200 mg/dL 70-110 H TESTED AT [address] [facility] (test code [facility] [place] = 1538) [id number] POCT-GLUCOSE [id number] 16:04:00 Test Item Value Reference Range Interpretation Comments POC-GLUCOSE METER 164 mg/dL 70-110 H TESTED AT [address] [facility] (test code [facility] [place] = 1538) [id number] POCT-GLUCOSE [id number] 12:06:00 Test Item Value Reference Range Interpretation Comments POC-GLUCOSE METER 169 mg/dL 70-110 H TESTED AT [address] (BEAKER) (test code [facility] [place] = 1538) [id number] RAD, CHEST, 1 VIEW, NON [id number] 09:52:00Reason for exam:->PNAShould this be performed at the bedside?->YesFINAL REPORT Portable chest. CLINICAL HISTORY: PNA. COMPARISON STUDY: Chest x-ray from yesterday. FINDINGS: The cardiac silhouette is enlarged. Sternotomy wires are seen. The pulmonary parenchyma demonstrate increased interstitial and patchy airspace opacities, slightly more pronounced than on previous. The support lines and tubes are unchanged. No pneumothorax is seen. Degenerative changes are noted. IMPRESSION: Slight worsening of pulmonary opacities, either related to pneumonia or CHF. Signed: Herlinda Gonzales Verified Date/Time: 08/08/2018 09:52:04 Reading Location: [address] Ortho Consult Reading Room REHENSIVE METABOLIC [id number] 05:42:00 Test Item Value Reference Range Interpretation Comments TOTAL PROTEIN 3.6 gm/dL 6.0-8.5 L (BEAKER) (test code = 770) ALBUMIN (BEAKER) 1.9 g/dL 3.5-5.0 L (test code = 1145) ALKALINE PHOSPHATASE 156 U/L 30-115 H (BEAKER) (test code = 346) BILIRUBIN TOTAL 4.2 mg/dL 0.1-1.2 H (BEAKER) (test code = 377) SODIUM (BEAKER) (test 138 meq/L 135-148 code = 381) POTASSIUM (BEAKER) 3.5 meq/L 3.6-5.5 L (test code = 379) CHLORIDE (BEAKER) 93 meq/L 98-106 L (test code = 382) CO2 (BEAKER) (test 36 meq/L 20-29 H code = 355) BLOOD UREA NITROGEN 37 mg/dL 10-26 H (BEAKER) (test code = 354) CREATININE (BEAKER) 1.04 mg/dL 0.50-1.20 (test code = 358) GLUCOSE RANDOM 138 mg/dL 70-110 H (BEAKER) (test code = 652) CALCIUM (BEAKER) 7.3 mg/dL 8.5-10.5 L (test code = 697) AST (SGOT) (BEAKER) 677 U/L 5-40 H (test code = 353) ALT (SGPT) (BEAKER) 608 U/L 5-50 H (test code = 347) EGFR (BEAKER) (test 68 mL/min/1.73 ESTIMA CINTHYA GFR IS code = 1092) sq m NOT ACCURATE CREATININE CLEARANCE IN PREDICTING GLOMERULAR FILTRATION RATE . ESTIMATED GFR I S NOT APPLICABLE FOR DIALYSIS PATIEN TS. Specimen slightly ictericPOCT-GLUCOSE [id number] 21:03:00 Test Item Value Reference Range Interpretation Comments POC-GLUCOSE METER 167 mg/dL 70-110 H TESTED AT [address] ([facility]) (test code [facility] [place] = 1538) [id number] POCT-GLUCOSE [id number] 17:55:00 Test Item Value Reference Range Interpretation Comments POC-GLUCOSE METER 203 mg/dL 70-110 H TESTED AT [address] ([facility]) (test code [facility] [place] = 1538) [id number] POCT-GLUCOSE [id number] 11:46:00 Test Item Value Reference Range Interpretation Comments POC-GLUCOSE METER 199 mg/dL 70-110 H TESTED AT [address] ([facility]) (test code [facility] [place] = 1538) [id number] CBC W/PLT COUNT & AUTO [id number] 06:41:00 Test Item Value Reference Range Interpretation Comments WHITE BLOOD CELL COUNT (BEAKER) 23.0 K/ L 4.0-10.0 H (test code = 775) RED BLOOD CELL COUNT (BEAKER) 3.11 M/ L 4.20-5.80 L (test code = 761) HEMOGLOBIN (BEAKER) (test code = 9.2 GM/DL 13.0-16.8 L 410) HEMATOCRIT (BEAKER) (test code = 29.9 % 36.0-50.0 L 411) MEAN CORPUSCULAR VOLUME (BEAKER) 96.1 fL 82.0-99.0 (test code = 753) MEAN CORPUSCULAR HEMOGLOBIN 29.6 pg 27.0-33.0 (BEAKER) (test code = 751) MEAN CORPUSCULAR HEMOGLOBIN CONC 30.8 GM/DL 32.0-36.0 L (BEAKER) (test code = 752) RED CELL DISTRIBUTION WIDTH 15.7 % 12.0-15.0 H (BEAKER) (test code = 412) PLATELET COUNT (BEAKER) (test 259 K/CU MM 150-430 code = 756) MEAN PLATELET VOLUME (BEAKER) 11.0 fL 6.0-11.5 (test code = 754) NUCLEATED RED BLOOD CELLS 0 /100 WBC 0-0 (BEAKER) (test code = 413) (MANUAL DIFFERENTIAL)2018-08-07 06:41:00 Test Item Value Reference Range Interpretation Comments NEUTROPHILS - REL (DIFF) (BEAKER) 94 % (test code = 1359) LYMPHOCYTES - REL (DIFF) (BEAKER) 4 % (test code = 1360) MONOCYTES - REL (DIFF) (BEAKER) 1 % (test code = 1361) BANDS - REL (DIFF) (BEAKER) (test 1 % 0-10 code = 1348) NEUTROPHILS - ABS (DIFF) (BEAKER) 21.62 K/ L 1.80-8.00 H (test code = 1365) LYMPHOCYTES - ABS (DIFF) (BEAKER) 0.92 K/ L 1.48-4.50 L (test code = 1366) MONOCYTES - ABS (DIFF) (BEAKER) 0.23 K/ L 0.00-1.30 (test code = 1367) BANDS-ABS (DIFF) (BEAKER) (test 0.2 K/ L 0.0-0.8 code = 1349) TOTAL COUNTED (BEAKER) (test code 100 = 1351) BANDS + SEGMENTED NEUTROPHILS 21.85 (BEAKER) (test code = 1352) WBC MORPHOLOGY (BEAKER) (test code Normal = 487) PLT MORPHOLOGY (BEAKER) (test code Normal = 486) HYPOCHROMIA (BEAKER) (test code = 1+ few 963) COMPREHENSIVE METABOLIC [id number] 05:56:00 Test Item Value Reference Range Interpretation Comments TOTAL PROTEIN 3.9 gm/dL 6.0-8.5 L (BEAKER) (test code = 770) ALBUMIN (BEAKER) 2.0 g/dL 3.5-5.0 L (test code = 1145) ALKALINE PHOSPHATASE 120 U/L 30-115 H (BEAKER) (test code = 346) BILIRUBIN TOTAL 2.8 mg/dL 0.1-1.2 H (BEAKER) (test code = 377) SODIUM (BEAKER) (test 136 meq/L 135-148 code = 381) POTASSIUM (BEAKER) 3.4 meq/L 3.6-5.5 L (test code = 379) CHLORIDE (BEAKER) 93 meq/L 98-106 L (test code = 382) CO2 (BEAKER) (test 37 meq/L 20-29 H code = 355) BLOOD UREA NITROGEN 40 mg/dL 10-26 H (BEAKER) (test code = 354) CREATININE (BEAKER) 1.03 mg/dL 0.50-1.20 (test code = 358) GLUCOSE RANDOM 214 mg/dL 70-110 H (BEAKER) (test code = 652) CALCIUM (BEAKER) 7.1 mg/dL 8.5-10.5 L (test code = 697) AST (SGOT) (BEAKER) 467 U/L 5-40 H (test code = 353) ALT (SGPT) (BEAKER) 487 U/L 5-50 H (test code = 347) EGFR (BEAKER) (test 69 mL/min/1.73 ESTIMA CINTHYA GFR IS code = 1092) sq m NOT ACCURATE CREATININE CLEARANCE IN PREDICTING GLOMERULAR FILTRATION RATE . ESTIMATED GFR I S NOT APPLICABLE FOR DIALYSIS PATIEN TS. Specimen slightly ictericPOCT-GLUCOSE [id number] 00:04:00 Test Item Value Reference Range Interpretation Comments POC-GLUCOSE METER 258 mg/dL 70-110 H TESTED AT [address] [facility] (test code [facility] [place] = 1538) [id number] POCT-GLUCOSE [id number] 17:53:00 Test Item Value Reference Range Interpretation Comments POC-GLUCOSE METER 239 mg/dL 70-110 H TESTED AT [address] [facility] (test code [facility] [place] = 1538) [id number] POCT-GLUCOSE [id number] 12:24:00 Test Item Value Reference Range Interpretation Comments POC-GLUCOSE METER 242 mg/dL 70-110 H TESTED AT [facility] [address] (BEAKER) (test code [facility] [place] = 1538) [id number] COMPREHENSIVE METABOLIC [id number] 05:51:00 Test Item Value Reference Range Interpretation Comments TOTAL PROTEIN 4.4 gm/dL 6.0-8.5 L (BEAKER) (test code = 770) ALBUMIN (BEAKER) 2.3 g/dL 3.5-5.0 L (test code = 1145) ALKALINE PHOSPHATASE 128 U/L 30-115 H (BEAKER) (test code = 346) BILIRUBIN TOTAL 2.6 mg/dL 0.1-1.2 H (BEAKER) (test code = 377) SODIUM (BEAKER) (test 150 meq/L 135-148 H code = 381) POTASSIUM (BEAKER) 3.7 meq/L 3.6-5.5 (test code = 379) CHLORIDE (BEAKER) 102 meq/L 98-106 (test code = 382) CO2 (BEAKER) (test 39 meq/L 20-29 H code = 355) BLOOD UREA NITROGEN 56 mg/dL 10-26 H (BEAKER) (test code = 354) CREATININE (BEAKER) 1.23 mg/dL 0.50-1.20 H (test code = 358) GLUCOSE RANDOM 156 mg/dL 70-110 H (BEAKER) (test code = 652) CALCIUM (BEAKER) 7.7 mg/dL 8.5-10.5 L (test code = 697) AST (SGOT) (BEAKER) 521 U/L 5-40 H (test code = 353) ALT (SGPT) (BEAKER) 494 U/L 5-50 H (test code = 347) EGFR (BEAKER) (test 56 mL/min/1.73 ESTIMA CINTHYA GFR IS code = 1092) sq m NOT ACCURATE CREATININE CLEARANCE IN PREDICTING GLOMERULAR FILTRATION RATE . ESTIMATED GFR I S NOT APPLICABLE FOR DIALYSIS PATIEN TS. Specimen slightly [id number] 05:42:00 Test Item Value Reference Range Interpretation Comments MAGNESIUM (BEAKER) (test code = 1.9 mg/dL 1.5-3.0 627) CBC W/PLT COUNT & AUTO [id number] 05:29:00 Test Item Value Reference Range Interpretation Comments WHITE BLOOD CELL COUNT (BEAKER) 23.9 K/ L 4.0-10.0 H (test code = 775) RED BLOOD CELL COUNT (BEAKER) 3.21 M/ L 4.20-5.80 L (test code = 761) HEMOGLOBIN (BEAKER) (test code = 9.6 GM/DL 13.0-16.8 L 410) HEMATOCRIT (BEAKER) (test code = 31.8 % 36.0-50.0 L 411) MEAN CORPUSCULAR VOLUME (BEAKER) 99.1 fL 82.0-99.0 H (test code = 753) MEAN CORPUSCULAR HEMOGLOBIN 29.9 pg 27.0-33.0 (BEAKER) (test code = 751) MEAN CORPUSCULAR HEMOGLOBIN CONC 30.2 GM/DL 32.0-36.0 L (BEAKER) (test code = 752) RED CELL DISTRIBUTION WIDTH 15.9 % 12.0-15.0 H (BEAKER) (test code = 412) PLATELET COUNT (BEAKER) (test 275 K/CU MM 150-430 code = 756) MEAN PLATELET VOLUME (BEAKER) 11.1 fL 6.0-11.5 (test code = 754) NUCLEATED RED BLOOD CELLS 0 /100 WBC 0-0 (BEAKER) (test code = 413) NEUTROPHILS RELATIVE PERCENT 93 % (BEAKER) (test code = 429) LYMPHOCYTES RELATIVE PERCENT 1 % (BEAKER) (test code = 430) MONOCYTES RELATIVE PERCENT 4 % (BEAKER) (test code = 431) EOSINOPHILS RELATIVE PERCENT 0 % (BEAKER) (test code = 432) BASOPHILS RELATIVE PERCENT 0 % (BEAKER) (test code = 437) NEUTROPHILS ABSOLUTE COUNT 22.18 K/ L 1.80-8.00 H (BEAKER) (test code = 670) LYMPHOCYTES ABSOLUTE COUNT 0.28 K/ L 1.48-4.50 L (BEAKER) (test code = 414) MONOCYTES ABSOLUTE COUNT (BEAKER) 1.04 K/ L 0.00-1.30 (test code = 415) EOSINOPHILS ABSOLUTE COUNT 0.00 K/ L 0.00-0.50 (BEAKER) (test code = 416) BASOPHILS ABSOLUTE COUNT (BEAKER) 0.02 K/ L 0.00-0.20 (test code = 417) IMMATURE GRANULOCYTES-RELATIVE 2 % 0-0 H PERCENT (BEAKER) (test code = 2801) POCT-GLUCOSE [id number] 23:40:00 Test Item Value Reference Range Interpretation Comments POC-GLUCOSE METER 226 mg/dL 70-110 H TESTED AT [address] ([facility]) (test code [facility] [place] = 1538) [id number] POCT-GLUCOSE [id number] 16:34:00 Test Item Value Reference Range Interpretation Comments POC-GLUCOSE METER 246 mg/dL 70-110 H TESTED AT [address] [facility] (test code [facility] [place] = 1538) [id number] BLOOD GAS, [id number] 13:54:00 Test Item Value Reference Range Interpretation Comments PH ARTERIAL (BEAKER) (test code = 7.43 7.35-7.45 383) PCO2 ARTERIAL (BEAKER) (test code 60 mmHg 35-45 H = 384) PO2 ARTERIAL (BEAKER) (test code 120 mmHg 80-90 H = 385) O2 SATURATION ARTERIAL (BEAKER) 98.4 % 96.0-97.0 H (test code = 386) HCO3 ARTERIAL (BEAKER) (test code 40 mmol/L 21-29 HH = 388) BASE EXCESS ARTERIAL (BEAKER) 13.0 mmol/L -2.0-3.0 H (test code = 387) PATIENT TEMPERATURE (BEAKER) 37.0 C (test code = 1818) FIO2 (BEAKER) (test code = 1819) 40.0 % POCT-GLUCOSE [id number] 11:20:00 Test Item Value Reference Range Interpretation Comments POC-GLUCOSE METER 236 mg/dL 70-110 H TESTED AT [address] ([facility]) (test code [facility] = 1538) [id number] RAD, CHEST, 1 VIEW, NON [id number] 11:12:00Reason for exam:->PNAShould this be performed at the bedside?->YesFINAL REPORT AP chest HISTORY: Pneumonia. COMPARISON: 08/04/2018. IMPRESSION: Left AICD present. Cardiomegaly. Endotracheal tube removed. Right arm PICC remains. Diffuse interstitial opacity similar to previous. No pneumothorax. Signed: Patricia Ewing MDReport Verified Date/Time: 08/05/2018 11:12:29 Reading Location: [address] Radiology Reading Room CBC W/PLT COUNT & AUTO DIFFERENTIAL 2018-08-05 06:45:00 Test Item Value Reference Range Interpretation Comments WHITE BLOOD CELL COUNT (BEAKER) 28.5 K/ L 4.0-10.0 H (test code = 775) RED BLOOD CELL COUNT (BEAKER) 3.43 M/ L 4.20-5.80 L (test code = 761) HEMOGLOBIN (BEAKER) (test code = 10.5 GM/DL 13.0-16.8 L 410) HEMATOCRIT (BEAKER) (test code = 33.7 % 36.0-50.0 L 411) MEAN CORPUSCULAR VOLUME (BEAKER) 98.3 fL 82.0-99.0 (test code = 753) MEAN CORPUSCULAR HEMOGLOBIN 30.6 pg 27.0-33.0 (BEAKER) (test code = 751) MEAN CORPUSCULAR HEMOGLOBIN CONC 31.2 GM/DL 32.0-36.0 L (BEAKER) (test code = 752) RED CELL DISTRIBUTION WIDTH 16.0 % 12.0-15.0 H (BEAKER) (test code = 412) PLATELET COUNT (BEAKER) (test 304 K/CU MM 150-430 code = 756) MEAN PLATELET VOLUME (BEAKER) 10.9 fL 6.0-11.5 (test code = 754) NUCLEATED RED BLOOD CELLS 0 /100 WBC 0-0 (BEAKER) (test code = 413) NEUTROPHILS RELATIVE PERCENT 92 % (BEAKER) (test code = 429) LYMPHOCYTES RELATIVE PERCENT 1 % (BEAKER) (test code = 430) MONOCYTES RELATIVE PERCENT 5 % (BEAKER) (test code = 431) EOSINOPHILS RELATIVE PERCENT 0 % (BEAKER) (test code = 432) BASOPHILS RELATIVE PERCENT 0 % (BEAKER) (test code = 437) NEUTROPHILS ABSOLUTE COUNT 26.26 K/ L 1.80-8.00 H (BEAKER) (test code = 670) LYMPHOCYTES ABSOLUTE COUNT 0.17 K/ L 1.48-4.50 L (BEAKER) (test code = 414) MONOCYTES ABSOLUTE COUNT (BEAKER) 1.52 K/ L 0.00-1.30 H (test code = 415) EOSINOPHILS ABSOLUTE COUNT 0.00 K/ L 0.00-0.50 (BEAKER) (test code = 416) BASOPHILS ABSOLUTE COUNT (BEAKER) 0.03 K/ L 0.00-0.20 (test code = 417) IMMATURE GRANULOCYTES-RELATIVE 2 % 0-0 H PERCENT (BEAKER) (test code = 2801) COMPREHENSIVE METABOLIC [id number] 06:43:00 Test Item Value Reference Range Interpretation Comments TOTAL PROTEIN 4.8 gm/dL 6.0-8.5 L (BEAKER) (test code = 770) ALBUMIN (BEAKER) 2.5 g/dL 3.5-5.0 L (test code = 1145) ALKALINE PHOSPHATASE 122 U/L 30-115 H (BEAKER) (test code = 346) BILIRUBIN TOTAL 2.2 mg/dL 0.1-1.2 H (BEAKER) (test code = 377) SODIUM (BEAKER) (test 151 meq/L 135-148 H code = 381) POTASSIUM (BEAKER) 4.2 meq/L 3.6-5.5 (test code = 379) CHLORIDE (BEAKER) 106 meq/L 98-106 (test code = 382) CO2 (BEAKER) (test 37 meq/L 20-29 H code = 355) BLOOD UREA NITROGEN 67 mg/dL 10-26 H (BEAKER) (test code = 354) CREATININE (BEAKER) 1.41 mg/dL 0.50-1.20 H (test code = 358) GLUCOSE RANDOM 203 mg/dL 70-110 H (BEAKER) (test code = 652) CALCIUM (BEAKER) 7.7 mg/dL 8.5-10.5 L (test code = 697) AST (SGOT) (BEAKER) 616 U/L 5-40 H (test code = 353) ALT (SGPT) (BEAKER) 498 U/L 5-50 H (test code = 347) EGFR (BEAKER) (test 48 mL/min/1.73 ESTIMA CINTHYA GFR IS code = 1092) sq m NOT ACCURATE CREATININE CLEARANCE IN PREDICTING GLOMERULAR FILTRATION RATE . ESTIMATED GFR I S NOT APPLICABLE FOR DIALYSIS PATIEN TS. BLOOD GAS, [id number] 04:51:00 Test Item Value Reference Range Interpretation Comments PH ARTERIAL (BEAKER) (test code = 7.37 7.35-7.45 383) PCO2 ARTERIAL (BEAKER) (test code 71 mmHg 35-45 HH = 384) PO2 ARTERIAL (BEAKER) (test code 103 mmHg 80-90 H = 385) O2 SATURATION ARTERIAL (BEAKER) 97.3 % 96.0-97.0 H (test code = 386) HCO3 ARTERIAL (BEAKER) (test code 41 mmol/L 21-29 HH = 388) BASE EXCESS ARTERIAL (BEAKER) 12.8 mmol/L -2.0-3.0 H (test code = 387) PATIENT TEMPERATURE (BEAKER) 37.0 C (test code = 1818) FIO2 (BEAKER) (test code = 1819) 40.0 % POCT-GLUCOSE [id number] 00:20:00 Test Item Value Reference Range Interpretation Comments POC-GLUCOSE METER 163 mg/dL 70-110 H TESTED AT [address] (BEAKER) (test code POINT [facility] [place] = 1538) [id number] BASIC METABOLIC [id number] 21:33:00 Test Item Value Reference Range Interpretation Comments SODIUM (BEAKER) 152 meq/L 135-148 H (test code = 381) POTASSIUM (BEAKER) 3.6 meq/L 3.6-5.5 (test code = 379) CHLORIDE (BEAKER) 106 meq/L 98-106 (test code = 382) CO2 (BEAKER) (test 35 meq/L 20-29 H code = 355) BLOOD UREA NITROGEN 63 mg/dL 10-26 H (BEAKER) (test code = 354) CREATININE (BEAKER) 1.47 mg/dL 0.50-1.20 H (test code = 358) GLUCOSE RANDOM 205 mg/dL 70-110 H (BEAKER) (test code = 652) CALCIUM (BEAKER) 7.4 mg/dL 8.5-10.5 L (test code = 697) EGFR (BEAKER) (test 46 mL/min/1.73 ESTIMA CINTHYA GFR IS code = 1092) sq m NOT ACCURATE CREATININE CLEARANCE IN PREDICTING GLOMERULAR FILTRATION RATE . ESTIMATED GFR I S NOT APPLICABLE FOR DIALYSIS PATIEN TS. POCT-GLUCOSE [id number] 17:53:00 Test Item Value Reference Range Interpretation Comments POC-GLUCOSE METER 233 mg/dL 70-110 H TESTED AT [facility] [address] (BEAKER) (test code [facility]INT [facility] [place] = 1538) [id number] POCT-GLUCOSE [id number] 12:07:00 Test Item Value Reference Range Interpretation Comments POC-GLUCOSE METER 191 mg/dL 70-110 H TESTED AT [facility] [address] (BEAKER) (test code [facility] [facility] [place] = 1538) [id number] RAD, CHEST, 1 VIEW, NON [id number] 06:17:00Reason for exam:- >intubationShould this be performed at the bedside?->YesFINAL REPORT Chest one view. Clinical history: intubation Comparison: Chest radiograph 08/03/2018. Technique: A single frontal view of the chest was obtained. Findings:There is aright PICC line with tip in the SVC. Endotracheal and feeding tubes are in satisfactory position. The patient is status post median sternotomy. There is a left-sided pacemaker with leads unchanged.The c ardiomediastinal contours are stable. There are persistent mild bilateral alveolar and interstitial opacities. There is no pleural effusion or pneumothorax. Signed: Lois Mckoy MDReport Verified Date/Time: 08/04/2018 06:17:26 Reading Location: [facility] C013Y CT Body Reading Room Electronically s igned by: LOIS MCKOY MD on 08/04/2018 06:17 AMBLOOD GAS, ARTERIAL 2018-08-04 06:12:00 Test Item Value Reference Range Interpretation Comments PH ARTERIAL (BEAKER) (test code = 7.48 7.35-7.45 H 383) PCO2 ARTERIAL (BEAKER) (test code 46 mmHg 35-45 H = 384) PO2 ARTERIAL (BEAKER) (test code = 79 mmHg 80-90 L 385) O2 SATURATION ARTERIAL (BEAKER) 96.3 % 96.0-97.0 (test code = 386) HCO3 ARTERIAL (BEAKER) (test code 33 mmol/L 21-29 H = 388) BASE EXCESS ARTERIAL (BEAKER) 8.6 mmol/L -2.0-3.0 H (test code = 387) PATIENT TEMPERATURE (BEAKER) (test 37.0 C code = 1818) FIO2 (BEAKER) (test code = 1819) 40.0 % COMPREHENSIVE METABOLIC [id number] 05:30:00 Test Item Value Reference Range Interpretation Comments TOTAL PROTEIN 4.0 gm/dL 6.0-8.5 L (BEAKER) (test code = 770) ALBUMIN (BEAKER) 2.2 g/dL 3.5-5.0 L (test code = 1145) ALKALINE PHOSPHATASE 103 U/L 30-115 (BEAKER) (test code = 346) BILIRUBIN TOTAL 1.6 mg/dL 0.1-1.2 H (BEAKER) (test code = 377) SODIUM (BEAKER) (test 151 meq/L 135-148 H code = 381) POTASSIUM (BEAKER) 3.4 meq/L 3.6-5.5 L (test code = 379) CHLORIDE (BEAKER) 109 meq/L 98-106 H (test code = 382) CO2 (BEAKER) (test 33 meq/L 20-29 H code = 355) BLOOD UREA NITROGEN 55 mg/dL 10-26 H (BEAKER) (test code = 354) CREATININE (BEAKER) 1.39 mg/dL 0.50-1.20 H (test code = 358) GLUCOSE RANDOM 194 mg/dL 70-110 H (BEAKER) (test code = 652) CALCIUM (BEAKER) 7.2 mg/dL 8.5-10.5 L (test code = 697) AST (SGOT) (BEAKER) 538 U/L 5-40 H (test code = 353) ALT (SGPT) (BEAKER) 336 U/L 5-50 H (test code = 347) EGFR (BEAKER) (test 49 mL/min/1.73 ESTIMA CINTHYA GFR IS code = 1092) sq m NOT ACCURATE CREATININE CLEARANCE IN PREDICTING GLOMERULAR FILTRATION RATE . ESTIMATED GFR I S NOT APPLICABLE FOR DIALYSIS PATIEN TS. CBC W/PLT COUNT & AUTO [id number] 05:05:00 Test Item Value Reference Range Interpretation Comments WHITE BLOOD CELL COUNT (BEAKER) 21.0 K/ L 4.0-10.0 H (test code = 775) RED BLOOD CELL COUNT (BEAKER) 2.95 M/ L 4.20-5.80 L (test code = 761) HEMOGLOBIN (BEAKER) (test code = 8.7 GM/DL 13.0-16.8 L 410) HEMATOCRIT (BEAKER) (test code = 28.6 % 36.0-50.0 L 411) MEAN CORPUSCULAR VOLUME (BEAKER) 96.9 fL 82.0-99.0 (test code = 753) MEAN CORPUSCULAR HEMOGLOBIN 29.5 pg 27.0-33.0 (BEAKER) (test code = 751) MEAN CORPUSCULAR HEMOGLOBIN CONC 30.4 GM/DL 32.0-36.0 L (BEAKER) (test code = 752) RED CELL DISTRIBUTION WIDTH 15.9 % 12.0-15.0 H (BEAKER) (test code = 412) PLATELET COUNT (BEAKER) (test 232 K/CU MM 150-430 code = 756) MEAN PLATELET VOLUME (BEAKER) 10.7 fL 6.0-11.5 (test code = 754) NUCLEATED RED BLOOD CELLS 0 /100 WBC 0-0 (BEAKER) (test code = 413) NEUTROPHILS RELATIVE PERCENT 90 % (BEAKER) (test code = 429) LYMPHOCYTES RELATIVE PERCENT 1 % (BEAKER) (test code = 430) MONOCYTES RELATIVE PERCENT 7 % (BEAKER) (test code = 431) EOSINOPHILS RELATIVE PERCENT 0 % (BEAKER) (test code = 432) BASOPHILS RELATIVE PERCENT 0 % (BEAKER) (test code = 437) NEUTROPHILS ABSOLUTE COUNT 19.00 K/ L 1.80-8.00 H (BEAKER) (test code = 670) LYMPHOCYTES ABSOLUTE COUNT 0.25 K/ L 1.48-4.50 L (BEAKER) (test code = 414) MONOCYTES ABSOLUTE COUNT (BEAKER) 1.47 K/ L 0.00-1.30 H (test code = 415) EOSINOPHILS ABSOLUTE COUNT 0.00 K/ L 0.00-0.50 (BEAKER) (test code = 416) BASOPHILS ABSOLUTE COUNT (BEAKER) 0.02 K/ L 0.00-0.20 (test code = 417) IMMATURE GRANULOCYTES-RELATIVE 1 % 0-0 H PERCENT (BEAKER) (test code = 2801) POCT-GLUCOSE [id number] 00:16:00 Test Item Value Reference Range Interpretation Comments POC-GLUCOSE METER 224 mg/dL 70-110 H TESTED AT [address] (BEAKER) (test code [address] [facility] [place] = 1538) [id number] POCT-GLUCOSE [id number] 18:02:00 Test Item Value Reference Range Interpretation Comments POC-GLUCOSE METER 197 mg/dL 70-110 H TESTED AT [facility] [address] ([facility]) (test code [address] [facility] [place] = 1538) [id number] POCT-GLUCOSE [id number] 12:12:00 Test Item Value Reference Range Interpretation Comments POC-GLUCOSE METER 197 mg/dL 70-110 H TESTED AT [facility] [address] ([facility] (test code [address] [facility] [place] = 1538) [id number] RAD, CHEST, 1 VIEW, NON [id number] 08:20:00Reason for exam:- >intubationShould this be performed at the bedside?->YesFINAL REPORT TECHNIQUE: Frontal chest radiograph dated 08/03/2018. CLINICAL HISTORY: Intubation COMPARISON STUDY: Chest radiograph dated 08/02/2018 IMPRESSION:Life support tubes, lines and devices are unchanged. No significant change in interstitial and airspace lung disease. No pleural effusion or pneumothorax. Cardiomediastinal silhouette is stable in size. Midline sternotomy wires are intact and well aligned. Signed: Nagi Matthewseptra Verified Date/Time: 08/03/2018 08:20:58 Reading Location: [facility] Radiology Reading Room CBC W/PLT COUNT & AUTO [id number] 07:57:00 Test Item Value Reference Range Interpretation Comments WHITE BLOOD CELL COUNT (BEAKER) 21.5 K/ L 4.0-10.0 H (test code = 775) RED BLOOD CELL COUNT (BEAKER) 2.95 M/ L 4.20-5.80 L (test code = 761) HEMOGLOBIN (BEAKER) (test code = 8.8 GM/DL 13.0-16.8 L 410) HEMATOCRIT (BEAKER) (test code = 28.7 % 36.0-50.0 L 411) MEAN CORPUSCULAR VOLUME (BEAKER) 97.3 fL 82.0-99.0 (test code = 753) MEAN CORPUSCULAR HEMOGLOBIN 29.8 pg 27.0-33.0 (BEAKER) (test code = 751) MEAN CORPUSCULAR HEMOGLOBIN CONC 30.7 GM/DL 32.0-36.0 L (BEAKER) (test code = 752) RED CELL DISTRIBUTION WIDTH 15.9 % 12.0-15.0 H (BEAKER) (test code = 412) PLATELET COUNT (BEAKER) (test 212 K/CU MM 150-430 code = 756) MEAN PLATELET VOLUME (BEAKER) 10.6 fL 6.0-11.5 (test code = 754) NUCLEATED RED BLOOD CELLS 0 /100 WBC 0-0 (BEAKER) (test code = 413) (MANUAL DIFFERENTIAL)2018-08-03 07:57:00 Test Item Value Reference Range Interpretation Comments NEUTROPHILS - REL (DIFF) (BEAKER) 92 % (test code = 1359) LYMPHOCYTES - REL (DIFF) (BEAKER) 1 % (test code = 1360) MONOCYTES - REL (DIFF) (BEAKER) 5 % (test code = 1361) BANDS - REL (DIFF) (BEAKER) (test 2 % 0-10 code = 1348) NEUTROPHILS - ABS (DIFF) (BEAKER) 19.78 K/ L 1.80-8.00 H (test code = 1365) LYMPHOCYTES - ABS (DIFF) (BEAKER) 0.22 K/ L 1.48-4.50 L (test code = 1366) MONOCYTES - ABS (DIFF) (BEAKER) 1.08 K/ L 0.00-1.30 (test code = 1367) BANDS-ABS (DIFF) (BEAKER) (test 0.4 K/ L 0.0-0.8 code = 1349) TOTAL COUNTED (BEAKER) (test code 100 = 1351) BANDS + SEGMENTED NEUTROPHILS 20.21 (BEAKER) (test code = 1352) WBC MORPHOLOGY (BEAKER) (test code Normal = 487) PLT MORPHOLOGY (BEAKER) (test code Normal = 486) ANISOCYTOSIS (BEAKER) (test code = 1+ few 961) HYPOCHROMIA (BEAKER) (test code = 1+ few 963) BLOOD GAS, [id number] 06:32:00 Test Item Value Reference Range Interpretation Comments PH ARTERIAL (BEAKER) (test code = 7.38 7.35-7.45 383) PCO2 ARTERIAL (BEAKER) (test code 55 mmHg 35-45 H = 384) PO2 ARTERIAL (BEAKER) (test code = 154 mmHg 80-90 H 385) O2 SATURATION ARTERIAL (BEAKER) 98.9 % 96.0-97.0 H (test code = 386) HCO3 ARTERIAL (BEAKER) (test code 32 mmol/L 21-29 H = 388) BASE EXCESS ARTERIAL (BEAKER) 5.5 mmol/L -2.0-3.0 H (test code = 387) PATIENT TEMPERATURE (BEAKER) (test 37.5 C code = 1818) FIO2 (BEAKER) (test code = 1819) 50.0 % BASIC METABOLIC [id number] 06:23:00 Test Item Value Reference Range Interpretation Comments SODIUM (BEAKER) 146 meq/L 135-148 (test code = 381) POTASSIUM (BEAKER) 4.0 meq/L 3.6-5.5 (test code = 379) CHLORIDE (BEAKER) 107 meq/L 98-106 H (test code = 382) CO2 (BEAKER) (test 30 meq/L 20-29 H code = 355) BLOOD UREA NITROGEN 56 mg/dL 10-26 H (BEAKER) (test code = 354) CREATININE (BEAKER) 1.55 mg/dL 0.50-1.20 H (test code = 358) GLUCOSE RANDOM 179 mg/dL 70-110 H (BEAKER) (test code = 652) CALCIUM (BEAKER) 7.6 mg/dL 8.5-10.5 L (test code = 697) EGFR (BEAKER) (test 43 mL/min/1.73 ESTIMA CINTHYA GFR IS code = 1092) sq m NOT ACCURATE CREATININE CLEARANCE IN PREDICTING GLOMERULAR FILTRATION RATE . ESTIMATED GFR I S NOT APPLICABLE FOR DIALYSIS PATIEN TS. [id number] 06:20:00 Test Item Value Reference Range Interpretation Comments PHOSPHORUS (BEAKER) (test code = 3.6 mg/dL 2.5-4.5 604) [id number] 06:16:00 Test Item Value Reference Range Interpretation Comments MAGNESIUM (BEAKER) (test code = 2.1 mg/dL 1.5-3.0 627) POCT-GLUCOSE [id number] 00:40:00 Test Item Value Reference Range Interpretation Comments POC-GLUCOSE METER 196 mg/dL 70-110 H TESTED AT [facility] [address] (BEAKER) (test code [address] [facility] [place] = 1538) [id number] POCT-GLUCOSE [id number] 00:40:00 Test Item Value Reference Range Interpretation Comments POC-GLUCOSE METER 189 mg/dL 70-110 H TESTED AT [facility] [address] (BEAKER) (test code [address] [facility] [place] = 1538) [id number] BLOOD GAS, [id number] 19:55:00 Test Item Value Reference Range Interpretation Comments PH ARTERIAL (BEAKER) (test code = 7.34 7.35-7.45 L 383) PCO2 ARTERIAL (BEAKER) (test code 49 mmHg 35-45 H = 384) PO2 ARTERIAL (BEAKER) (test code 142 mmHg 80-90 H = 385) O2 SATURATION ARTERIAL (BEAKER) 98.6 % 96.0-97.0 H (test code = 386) HCO3 ARTERIAL (BEAKER) (test code 25 mmol/L 21-29 = 388) BASE EXCESS ARTERIAL (BEAKER) -0.6 mmol/L -2.0-3.0 (test code = 387) PATIENT TEMPERATURE (BEAKER) 37.5 C (test code = 1818) FIO2 (BEAKER) (test code = 1819) 50.0 % BLOOD GAS, [id number] 13:47:00 Test Item Value Reference Range Interpretation Comments PH ARTERIAL (BEAKER) (test code = 7.32 7.35-7.45 L 383) PCO2 ARTERIAL (BEAKER) (test code 63 mmHg 35-45 H = 384) PO2 ARTERIAL (BEAKER) (test code = 161 mmHg 80-90 H 385) O2 SATURATION ARTERIAL (BEAKER) 98.9 % 96.0-97.0 H (test code = 386) HCO3 ARTERIAL (BEAKER) (test code 32 mmol/L 21-29 H = 388) BASE EXCESS ARTERIAL (BEAKER) 4.2 mmol/L -2.0-3.0 H (test code = 387) PATIENT TEMPERATURE (BEAKER) (test 37.0 C code = 1818) FIO2 (BEAKER) (test code = 1819) 50.0 % POCT-GLUCOSE [id number] 12:13:00 Test Item Value Reference Range Interpretation Comments POC-GLUCOSE METER 212 mg/dL 70-110 H TESTED AT [address] ([place]) (test code [address] [place] [facility] = 4756) [id number] TOMMY, ARTERIAL EMBOLIZATION FOR [id number] 08:35:00Reason for exam:->post-op bleedFINAL REPORT Right lower extremity angiogram, 07/28/2018. History: Bleeding from postoperative site after right hip surgery. Modality: Fluoroscopy. Sedation: None. Anesthesia: Two percent Lidocaine without epinephrine. Approach: Right commonfemoral artery. Estimated blood loss: < 5 cc. Specimen: None. reeling operator: Olga. Media Operator: None. Fluoroscopy Time: 13.6 min. Dose (Ka,r): 446 mGy. Technique: Informed written consent was obtained. Discussion of risks, benefits, and alternatives were made with the patient. The patient expressed understanding and agreed to proceed. All elements maximal sterile barrier technique was utilized for this procedure, including utilization of sterile scrub solution for skin prep, a large sterile sheet to cover the areas of the patient that were not prepped, and hand hygiene, mask, head covering, and sterile gown for performing radiologist and scrub technologist. The skin was anesthetized with lidocaine. The left common femoral artery was accessed using a 21-gauge micropuncture needle. A0.018 inch wire was placed through the needle into the distal aorta. The needle was removed and a 4 Marshallese micropuncture sheath was placed, and the 0.018 wire was exchanged for 0.035 inch J-wire. A 5 Marshallese sheath was placed. 5 Marshallese contra and cobra catheters were used to select the right common femoral artery for DSA runs. The Cobra catheter was then used to select the right profundus femoral artery for DSA run. A microcatheter was advanced through the Cobra catheter for subselection of 2 lateral profunda femoris branches which demonstrated active disease. These 2 branches were embolized using multiple microcoils. Follow-up DSA runs were performed. The catheter was removed. Injection was performed through the sheath for a DSA run of the left femoral artery. The sheath was removed, the arteriotomy was closed, and hemostasis was obtained using a Mynx closure device. Vital signs were monitored throughout the procedure by a nurse, and remained stable. The patient tolerated the procedure well and left the department in the same condition. FINDINGS:1. 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 This branch was subselected and embolized to stasis with microcoils.2. Active hemorrhage was identified more inferiorly from a lateral branch of the profunda femoris artery, very superficially near the surgical keisha. This branch was also selected and embolized to stasis with multiple microcoils.3 Right femoral sheath injection: The right common femoral artery is patent with normal position of the arterial sheath. Impression: 1.Uncomplicated right lower extremity angiogram.2. Successful embolization of 2 right profundus femoral sites as described above.3. Arteriotomy hemostasis obtained with Mynx closure device. Signed: Anish Espinoza Verified Date/Time: 08/02/2018 08:35:50 Reading Location: [facility] Radiology Reading Room RAD, CHEST, 1 VIEW, NON [id number] 05:44:00Reason for exam:->intubationShould this be performed at the bedside?->YesFINAL REPORT Chest one view. Clinical history: intubation Comparison: Chest radiograph 08/01/2018, 9:48 AM Technique: A single frontal view of the chest was obtained. Findings:Endotracheal and feeding tubes are in satisfactory position. 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 The patient is status post median sternotomy.The cardiomediastinal contours are stable. There are diffuse bilateral airspace opacities which may represent pneumonia and/or pulmonary edema, decreased. There is no pneumothorax or pleural effusion. Signed: Lois Mckoyort Verified Date/Time: 08/02/2018 05:44:57 Reading Location: [facility] B1 C013Y CT Body Reading Room BASIC METABOLIC PANEL 2018-08-02 05:24:00 Test Item Value Reference Range Interpretation Comments SODIUM (BEAKER) 139 meq/L 135-148 (test code = 381) POTASSIUM (BEAKER) 4.9 meq/L 3.6-5.5 (test code = 379) CHLORIDE (BEAKER) 105 meq/L 98-106 (test code = 382) CO2 (BEAKER) (test 25 meq/L 20-29 code = 355) BLOOD UREA NITROGEN 55 mg/dL 10-26 H (BEAKER) (test code = 354) CREATININE (BEAKER) 1.54 mg/dL 0.50-1.20 H (test code = 358) GLUCOSE RANDOM 162 mg/dL 70-110 H (BEAKER) (test code = 652) CALCIUM (BEAKER) 7.7 mg/dL 8.5-10.5 L (test code = 697) EGFR (BEAKER) (test 43 mL/min/1.73 ESTIMA CINTHYA GFR IS code = 1092) sq m NOT ACCURATE CREATININE CLEARANCE IN PREDICTING GLOMERULAR FILTRATION RATE . ESTIMATED GFR I S NOT APPLICABLE FOR DIALYSIS PATIEN TS. [id number] 05:14:00 Test Item Value Reference Range Interpretation Comments PHOSPHORUS (BEAKER) (test code = 5.1 mg/dL 2.5-4.5 H 604) [id number] 05:09:00 Test Item Value Reference Range Interpretation Comments MAGNESIUM (BEAKER) (test code = 2.1 mg/dL 1.5-3.0 627) CBC W/PLT COUNT & AUTO [id number] 04:59:00 Test Item Value Reference Range Interpretation Comments WHITE BLOOD CELL COUNT (BEAKER) 20.5 K/ L 4.0-10.0 H (test code = 775) RED BLOOD CELL COUNT (BEAKER) 3.14 M/ L 4.20-5.80 L (test code = 761) HEMOGLOBIN (BEAKER) (test code = 9.3 GM/DL 13.0-16.8 L 410) HEMATOCRIT (BEAKER) (test code = 30.3 % 36.0-50.0 L 411) MEAN CORPUSCULAR VOLUME (BEAKER) 96.5 fL 82.0-99.0 (test code = 753) MEAN CORPUSCULAR HEMOGLOBIN 29.6 pg 27.0-33.0 (BEAKER) (test code = 751) MEAN CORPUSCULAR HEMOGLOBIN CONC 30.7 GM/DL 32.0-36.0 L (BEAKER) (test code = 752) RED CELL DISTRIBUTION WIDTH 16.2 % 12.0-15.0 H (BEAKER) (test code = 412) PLATELET COUNT (BEAKER) (test 209 K/CU MM 150-430 code = 756) MEAN PLATELET VOLUME (BEAKER) 10.8 fL 6.0-11.5 (test code = 754) NUCLEATED RED BLOOD CELLS 0 /100 WBC 0-0 (BEAKER) (test code = 413) NEUTROPHILS RELATIVE PERCENT 90 % (BEAKER) (test code = 429) LYMPHOCYTES RELATIVE PERCENT 2 % (BEAKER) (test code = 430) MONOCYTES RELATIVE PERCENT 6 % (BEAKER) (test code = 431) EOSINOPHILS RELATIVE PERCENT 0 % (BEAKER) (test code = 432) BASOPHILS RELATIVE PERCENT 0 % (BEAKER) (test code = 437) NEUTROPHILS ABSOLUTE COUNT 18.39 K/ L 1.80-8.00 H (BEAKER) (test code = 670) LYMPHOCYTES ABSOLUTE COUNT 0.32 K/ L 1.48-4.50 L (BEAKER) (test code = 414) MONOCYTES ABSOLUTE COUNT (BEAKER) 1.12 K/ L 0.00-1.30 (test code = 415) EOSINOPHILS ABSOLUTE COUNT 0.00 K/ L 0.00-0.50 (BEAKER) (test code = 416) BASOPHILS ABSOLUTE COUNT (BEAKER) 0.02 K/ L 0.00-0.20 (test code = 417) IMMATURE GRANULOCYTES-RELATIVE 3 % 0-0 H PERCENT (BEAKER) (test code = 2801) BLOOD GAS, [id number] 04:55:00 Test Item Value Reference Range Interpretation Comments PH ARTERIAL (BEAKER) (test code = 7.33 7.35-7.45 L 383) PCO2 ARTERIAL (BEAKER) (test code 52 mmHg 35-45 H = 384) PO2 ARTERIAL (BEAKER) (test code = 74 mmHg 80-90 L 385) O2 SATURATION ARTERIAL (BEAKER) 93.2 % 96.0-97.0 L (test code = 386) HCO3 ARTERIAL (BEAKER) (test code 27 mmol/L 21-29 = 388) BASE EXCESS ARTERIAL (BEAKER) 0.4 mmol/L -2.0-3.0 (test code = 387) PATIENT TEMPERATURE (BEAKER) (test 37.5 C code = 1818) FIO2 (BEAKER) (test code = 1819) 50.0 % POCT-GLUCOSE [id number] 02:27:00 Test Item Value Reference Range Interpretation Comments POC-GLUCOSE METER 172 mg/dL 70-110 H TESTED AT [facility] [address] (test code [address] [facility] [place] = 1538) [id number] POCT-GLUCOSE [id number] 19:29:00 Test Item Value Reference Range Interpretation Comments POC-GLUCOSE METER 167 mg/dL 70-110 H TESTED AT [facility] [address] [facility] (test code [address] [facility] [place] = 1538) [id number] CBC W/PLT COUNT & AUTO [id number] 16:47:00 Test Item Value Reference Range Interpretation Comments WHITE BLOOD CELL COUNT (BEAKER) 20.8 K/ L 4.0-10.0 H (test code = 775) RED BLOOD CELL COUNT (BEAKER) 2.99 M/ L 4.20-5.80 L (test code = 761) HEMOGLOBIN (BEAKER) (test code = 9.3 GM/DL 13.0-16.8 L 410) HEMATOCRIT (BEAKER) (test code = 28.1 % 36.0-50.0 L 411) MEAN CORPUSCULAR VOLUME (BEAKER) 94.0 fL 82.0-99.0 (test code = 753) MEAN CORPUSCULAR HEMOGLOBIN 31.1 pg 27.0-33.0 (BEAKER) (test code = 751) MEAN CORPUSCULAR HEMOGLOBIN CONC 33.1 GM/DL 32.0-36.0 (BEAKER) (test code = 752) RED CELL DISTRIBUTION WIDTH 15.7 % 12.0-15.0 H (BEAKER) (test code = 412) PLATELET COUNT (BEAKER) (test 179 K/CU MM 150-430 code = 756) MEAN PLATELET VOLUME (BEAKER) 10.6 fL 6.0-11.5 (test code = 754) NUCLEATED RED BLOOD CELLS 0 /100 WBC 0-0 (BEAKER) (test code = 413) NEUTROPHILS RELATIVE PERCENT 89 % (BEAKER) (test code = 429) LYMPHOCYTES RELATIVE PERCENT 2 % (BEAKER) (test code = 430) MONOCYTES RELATIVE PERCENT 6 % (BEAKER) (test code = 431) EOSINOPHILS RELATIVE PERCENT 0 % (BEAKER) (test code = 432) BASOPHILS RELATIVE PERCENT 0 % (BEAKER) (test code = 437) NEUTROPHILS ABSOLUTE COUNT 18.40 K/ L 1.80-8.00 H (BEAKER) (test code = 670) LYMPHOCYTES ABSOLUTE COUNT 0.38 K/ L 1.48-4.50 L (BEAKER) (test code = 414) MONOCYTES ABSOLUTE COUNT (BEAKER) 1.30 K/ L 0.00-1.30 (test code = 415) EOSINOPHILS ABSOLUTE COUNT 0.01 K/ L 0.00-0.50 (BEAKER) (test code = 416) BASOPHILS ABSOLUTE COUNT (BEAKER) 0.03 K/ L 0.00-0.20 (test code = 417) IMMATURE GRANULOCYTES-RELATIVE 3 % 0-0 H PERCENT (BEAKER) (test code = 2801) BLOOD GAS, [id number] 12:49:00 Test Item Value Reference Range Interpretation Comments PH ARTERIAL (BEAKER) (test code = 7.30 7.35-7.45 L 383) PCO2 ARTERIAL (BEAKER) (test code 55 mmHg 35-45 H = 384) PO2 ARTERIAL (BEAKER) (test code 350 mmHg 80-90 H = 385) O2 SATURATION ARTERIAL (BEAKER) 99.7 % 96.0-97.0 H (test code = 386) HCO3 ARTERIAL (BEAKER) (test code 27 mmol/L 21-29 = 388) BASE EXCESS ARTERIAL (BEAKER) -0.4 mmol/L -2.0-3.0 (test code = 387) PATIENT TEMPERATURE (BEAKER) 37.0 C (test code = 1818) FIO2 (BEAKER) (test code = 1819) 100.0 % RAD, ABDOMEN/KUB 1 VIEW [id number] 11:37:00Reason for exam:->new ngt placed, need placement verificationShould this be performed [facility] the [facility]?->YesFINAL REPORT TECHNIQUE: Frontal view of the abdomen. INDICATION: 82-year-old man with nasogastric tube placement. COMPARISON: Chest radiograph from earlier same date. IMPRESSION:The tip of a nasogastric tube projects over the expected region of the proximal gastric body. Other visualized lines/tubes are unchanged. Nonobstructive bowel gas pattern. Degenerative changes of the visualized spine. Signed: Silvia Garrison MDReport Verified Date/Time: 08/01/2018 11:37:16 Reading Location: [facility] C013X Ortho Consult Reading Room RAD, CHEST, 1 VIEW, NON [id number] 10:29:00Reason for exam:->ngt adjusted, placement verificationShould this be performed at the bedside?->YesFINAL REPORT TECHNIQUE: Frontal view of the chest. INDICATION: 82-year-old man after adjustment of the nasogastric tube. COMPARISON: Chest radiograph from earlier same date. FINDINGS: LINES/TUBES: The tip of the nasogastric tube terminates over the expected region of the gastroesophageal junction; consider advancement by 5-10 cm. Other lines/tubes are unchanged. LUNGS: Unchanged bilateral airspace opacities. PLEURA: No pneumothorax or significant pleural effusion. HEART AND MEDIASTINUM: The cardiomediastinal silhouette is unchanged. Atherosclerotic calcifications in the thoracic aorta. SOFT TISSUES AND BONES: Unchanged median sternotomy wires. IMPRESSION:Lines/tubes as above. Consider advancement of the nasogastric tube by 5-10 cm. Otherwise, no significant change since chest radiograph from earlier same date. Signed: Silvia Garrison MDReport Verified Date/Time: 08/01/2018 10:29:35 Reading Location: [facility] C013X Ortho Consult Reading Room RAD, CHEST, 1 VIEW, NON [id number] 09:35:00Reason for exam:->ngt insertionShould this be performed at the bedside?->YesFINAL REPORT Chest, one view. HISTORY: ngt insertion COMPARISON: Radiograph f rom earlier today IMPRESSION: The NG tube tip is likely the gastroesophageal junction. Consider a KUB for confirmation, an advanced by 5-10 cm. The appendix is enlarged and unchanged. Unchanged positioning of other support lines and tubes. Unchanged pulmonary edema and small right pleural effusion. No pneumothorax. No acute bony abnormality. Findings were discussed with Roberta Edwards, the patient's nurse, on 08/01/2018 at 9:34 AM. Signed: Horn, Aditi MDReport Verified Date/Time: 08/01/2018 09:35:41Reading Location: [facility] C013Y CT Body Reading Room RAD, CHEST, 1 VIEW, NON [id number] 08:20:00Reason for exam:->HypoxiaShould this be performed at the bedside?->YesFINAL REPORT RAD, CHEST, 1 VIEW, NON DEPT INDICATION: Hypoxia COMPARISON: Prior day's exam FINDINGS: Portable frontal view of the chest. IMPRESSION: Support Lines: Examinationterminating 3 cm above the derek. Stable right PICC. Lungs and pleura: Improved aeration with persistent interstitial congestion suggesting edema. No effusion or pneumothorax. Heart and mediastinum: Stable contours. Stable surgical changes.Additional findings: None. Signed: JR Underwood Robert MDReport Verified Date/Time: 08/01/2018 08:20:37 Reading Location: [facility] [id number] Neuro Reading Room COMPREHENSIVE METABOLIC PANEL 2018-08-01 06:49:00 Test Item Value Reference Range Interpretation Comments TOTAL PROTEIN 4.3 gm/dL 6.0-8.5 L (BEAKER) (test code = 770) ALBUMIN (BEAKER) 2.4 g/dL 3.5-5.0 L (test code = 1145) ALKALINE PHOSPHATASE 82 U/L 30-115 (BEAKER) (test code = 346) BILIRUBIN TOTAL 0.7 mg/dL 0.1-1.2 (BEAKER) (test code = 377) SODIUM (BEAKER) (test 136 meq/L 135-148 code = 381) POTASSIUM (BEAKER) 4.5 meq/L 3.6-5.5 (test code = 379) CHLORIDE (BEAKER) 105 meq/L 98-106 (test code = 382) CO2 (BEAKER) (test 25 meq/L 20-29 code = 355) BLOOD UREA NITROGEN 51 mg/dL 10-26 H (BEAKER) (test code = 354) CREATININE (BEAKER) 1.30 mg/dL 0.50-1.20 H (test code = 358) GLUCOSE RANDOM 158 mg/dL 70-110 H (BEAKER) (test code = 652) CALCIUM (BEAKER) 7.8 mg/dL 8.5-10.5 L (test code = 697) AST (SGOT) (BEAKER) 96 U/L 5-40 H (test code = 353) ALT (SGPT) (BEAKER) 74 U/L 5-50 H (test code = 347) EGFR (BEAKER) (test 53 mL/min/1.73 ESTIMA CINTHYA GFR IS code = 1092) sq m NOT ACCURATE CREATININE CLEARANCE IN PREDICTING GLOMERULAR FILTRATION RATE . ESTIMATED GFR I S NOT APPLICABLE FOR DIALYSIS PATIEN TS. [id number] 06:30:00 Test Item Value Reference Range Interpretation Comments PHOSPHORUS (BEAKER) (test code = 4.0 mg/dL 2.5-4.5 604) [id number] 06:25:00 Test Item Value Reference Range Interpretation Comments MAGNESIUM (BEAKER) (test code = 2.0 mg/dL 1.5-3.0 627) CBC W/PLT COUNT & AUTO [id number] 06:19:00 Test Item Value Reference Range Interpretation Comments WHITE BLOOD CELL COUNT (BEAKER) 21.6 K/ L 4.0-10.0 H (test code = 775) RED BLOOD CELL COUNT (BEAKER) 2.26 M/ L 4.20-5.80 L (test code = 761) HEMOGLOBIN (BEAKER) (test code = 6.7 GM/DL 13.0-16.8 L 410) HEMATOCRIT (BEAKER) (test code = 21.4 % 36.0-50.0 L 411) MEAN CORPUSCULAR VOLUME (BEAKER) 94.7 fL 82.0-99.0 (test code = 753) MEAN CORPUSCULAR HEMOGLOBIN 29.6 pg 27.0-33.0 (BEAKER) (test code = 751) MEAN CORPUSCULAR HEMOGLOBIN CONC 31.3 GM/DL 32.0-36.0 L (BEAKER) (test code = 752) RED CELL DISTRIBUTION WIDTH 16.1 % 12.0-15.0 H (BEAKER) (test code = 412) PLATELET COUNT (BEAKER) (test 181 K/CU MM 150-430 code = 756) MEAN PLATELET VOLUME (BEAKER) 10.7 fL 6.0-11.5 (test code = 754) NUCLEATED RED BLOOD CELLS 0 /100 WBC 0-0 (BEAKER) (test code = 413) NEUTROPHILS RELATIVE PERCENT 89 % (BEAKER) (test code = 429) LYMPHOCYTES RELATIVE PERCENT 2 % (BEAKER) (test code = 430) MONOCYTES RELATIVE PERCENT 6 % (BEAKER) (test code = 431) EOSINOPHILS RELATIVE PERCENT 0 % (BEAKER) (test code = 432) BASOPHILS RELATIVE PERCENT 0 % (BEAKER) (test code = 437) NEUTROPHILS ABSOLUTE COUNT 19.19 K/ L 1.80-8.00 H (BEAKER) (test code = 670) LYMPHOCYTES ABSOLUTE COUNT 0.52 K/ L 1.48-4.50 L (BEAKER) (test code = 414) MONOCYTES ABSOLUTE COUNT (BEAKER) 1.29 K/ L 0.00-1.30 (test code = 415) EOSINOPHILS ABSOLUTE COUNT 0.00 K/ L 0.00-0.50 (BEAKER) (test code = 416) BASOPHILS ABSOLUTE COUNT (BEAKER) 0.02 K/ L 0.00-0.20 (test code = 417) IMMATURE GRANULOCYTES-RELATIVE 3 % 0-0 H PERCENT (BEAKER) (test code = 2801) HEMOGLOBIN AND [id number] 15:23:00 Test Item Value Reference Range Interpretation Comments HEMOGLOBIN (BEAKER) (test code = 7.0 GM/DL 13.0-16.8 L 410) HEMATOCRIT (BEAKER) (test code = 21.4 % 36.0-50.0 L 411) RAD, CHEST, 1 VIEW, NON [id number] 08:36:00Reason for exam:->sobShould this be performed at the bedside?->YesFINAL REPORT RAD, CHEST, 1 VIEW, NON DEPT INDICATION: sob COMPARISON: Prior day's exam FINDINGS: Portable frontal view of the chest. IMPRESSION: Support Lines: Stable right PICC Lungs and pleura: Unchanged airspace and interstitial opacities. No pneumothorax.Heart and mediastinum: Stable contours. Stable surgical changes.Additional findings: None. Signed: JR Underwood Robert MDReport Verified Date/Time: 07/31/2018 08:36:20 Reading Location: [place] [id number] Neuro Reading Room BASIC METABOLIC [id number] 06:35:00 Test Item Value Reference Range Interpretation Comments SODIUM (BEAKER) 137 meq/L 135-148 (test code = 381) POTASSIUM (BEAKER) 4.2 meq/L 3.6-5.5 (test code = 379) CHLORIDE (BEAKER) 104 meq/L 98-106 (test code = 382) CO2 (BEAKER) (test 24 meq/L 20-29 code = 355) BLOOD UREA NITROGEN 43 mg/dL 10-26 H (BEAKER) (test code = 354) CREATININE (BEAKER) 1.35 mg/dL 0.50-1.20 H (test code = 358) GLUCOSE RANDOM 165 mg/dL 70-110 H (BEAKER) (test code = 652) CALCIUM (BEAKER) 7.5 mg/dL 8.5-10.5 L (test code = 697) EGFR (BEAKER) (test 51 mL/min/1.73 ESTIMA CINTHYA GFR IS code = 1092) sq m NOT ACCURATE CREATININE CLEARANCE IN PREDICTING GLOMERULAR FILTRATION RATE . ESTIMATED GFR I S NOT APPLICABLE FOR DIALYSIS PATIEN TS. CBC W/PLT COUNT & AUTO [id number] 05:55:00 Test Item Value Reference Range Interpretation Comments WHITE BLOOD CELL COUNT (BEAKER) 19.6 K/ L 4.0-10.0 H (test code = 775) RED BLOOD CELL COUNT (BEAKER) 2.25 M/ L 4.20-5.80 L (test code = 761) HEMOGLOBIN (BEAKER) (test code = 7.0 GM/DL 13.0-16.8 L 410) HEMATOCRIT (BEAKER) (test code = 22.0 % 36.0-50.0 L 411) MEAN CORPUSCULAR VOLUME (BEAKER) 93.8 fL 82.0-99.0 (test code = 753) MEAN CORPUSCULAR HEMOGLOBIN 31.1 pg 27.0-33.0 (BEAKER) (test code = 751) MEAN CORPUSCULAR HEMOGLOBIN CONC 33.2 GM/DL 32.0-36.0 (BEAKER) (test code = 752) RED CELL DISTRIBUTION WIDTH 15.9 % 12.0-15.0 H (BEAKER) (test code = 412) PLATELET COUNT (BEAKER) (test 163 K/CU MM 150-430 code = 756) MEAN PLATELET VOLUME (BEAKER) 10.8 fL 6.0-11.5 (test code = 754) NUCLEATED RED BLOOD CELLS 0 /100 WBC 0-0 (BEAKER) (test code = 413) NEUTROPHILS RELATIVE PERCENT 91 % (BEAKER) (test code = 429) LYMPHOCYTES RELATIVE PERCENT 2 % (BEAKER) (test code = 430) MONOCYTES RELATIVE PERCENT 4 % (BEAKER) (test code = 431) EOSINOPHILS RELATIVE PERCENT 0 % (BEAKER) (test code = 432) BASOPHILS RELATIVE PERCENT 0 % (BEAKER) (test code = 437) NEUTROPHILS ABSOLUTE COUNT 17.76 K/ L 1.80-8.00 H (BEAKER) (test code = 670) LYMPHOCYTES ABSOLUTE COUNT 0.41 K/ L 1.48-4.50 L (BEAKER) (test code = 414) MONOCYTES ABSOLUTE COUNT (BEAKER) 0.84 K/ L 0.00-1.30 (test code = 415) EOSINOPHILS ABSOLUTE COUNT 0.00 K/ L 0.00-0.50 (BEAKER) (test code = 416) BASOPHILS ABSOLUTE COUNT (BEAKER) 0.02 K/ L 0.00-0.20 (test code = 417) IMMATURE GRANULOCYTES-RELATIVE 3 % 0-0 H PERCENT (BEAKER) (test code = 2801) ANG, EXTREMITY, [id number] 14:56:00Angiography and embolization, as indicatedReason for exam:->persistent bleeding from right lower extremity. FINAL REPORT Procedure: Right lower extremity arteriogram and embolization History: Status post recent right hip/proximal femoral surgery with persistent bleeding. Arteriogram and embolization already performed, repeat exam requested by referring physician due to persistent bleeding Veterinarian Poultry: Malinda Conscious sedation: None TECHNIQUE: Informed consent was obtained. The left groin was prepped and draped in sterile fashion. All elements maximal sterile barrier technique was utilized for this procedure, including utilization of sterile scrub solution for skin prep, a large sterile sheet to cover the areas of the patient that were not prepped, and hand hygiene, mask, head covering, and sterile gown for performing radiologist and scrub technologist. Local anesthesia was appliedwith 2% lidocaine. A 21-gauge micropuncture needle and sheath were used to access the left common femoral artery under sonographic and fluoroscopic guidance. An image of the left common femoral artery could not be saved to PACS. A 0.035 Bentson wire was advanced through the sheath. A 6 Marshallese short vascular access sheath was placed. An Omni flush catheter was advanced and placed over the aortic bifurcation. A 0.035 Glidewire was advanced over the bifurcation into the right superficial femoral arteryto obtain purchase. The short sheath was removed. A 6 Marshallese 45 cm long vascular access sheath was then placed. A 4 Marshallese angled glide catheter was then advanced into the superficial femoral artery. Over this the vascular access sheath was then advanced up and over the aortic bifurcation and into theright external iliac artery. The angled glide catheter was then removed. An H1 catheter was unavailable. A combination of catheters was used including 6 Marshallese angled catheter and a 65 cm C2 catheter.Arteriography of the right profunda femoral artery was performed. This revealed tiny foci of pseudoaneurysm measuring a few millimeters arising from what appear to be peripheral branches of the circumflex artery, at the level of the greater trochanter. Additionally there was a more focal area of pseudoaneurysm/extravasation spanning about 0.5 cm along the mid lateral thigh fairly close to the skin. This appear to be supplied by one of the deep femoral artery fourth order cost recorder branches althoughit was not immediately clear as to which one. A 3 Marshallese microcatheter was advanced into branches ofthe circumflex artery and embolization was performed using 3 x 2 mm coils. A total of 6 coils were placed. Repeat arteriography revealed decreased flow with the findings being is no longer visible. Subsequently attention was turned to the more caudal bleed at level of the mid femur. As stated, it was not immediately clear as to which branch was supplying this abnormality especially given the numerousperforators with overlapping branches. Using a microcatheter each of the fourth order cost recorder branches was carefully selected including the ones which had been previously embolized. Digital subtraction angiography was performed in each of the cost recorder branches. Finally, one of the mid cost recorder branches was identified as the one supplying the bleed in question. However, this artery immediately b ranched into numerous subbranches. The tiny branch that appeared to be supplying the extravasation was coming off in a angle close to the origin of the parent branch. Despite numerous attempts this branch could not be selected with the microcatheter. A more proximal embolization would necessitate essentially occluding the main cost recorder branch which would compromise a large vascular supply of the right thigh. At this point a proximal embolization was felt to carry greater risks than the potential benefit. Further, given the very lateral and peripheral location of the extravasation, it was felt that applying pressure and a manual compression could result in cessation of this bleed. The location ofthe bleed was marked on the patient's skin with indelible ink. This was demonstrated to patient's nurse in ICU. The catheter and the long vascular access sheath were removed over wire. A short 6 Marshallese sheath was then placed through which angiography was performed which revealed access into the femoral artery appropriate for placement of an Angio-Seal device. The sheath was removed and hemostasis achieved with Angio-Seal. There were no immediate complications. Patient was in critical condition but hemodynamically stable throughout the procedure. Patient was transferred back to ICU in stable condition. Above was discussed with Dr. Patel on 07/29/2018 at approximately 22:15 hours. I suggest a placement of compression device, for example a sandbag if available, along the lateral aspect of the mid thigh in the vicinity of the bleed as marked on the skin. Total fluoroscopy time: 42 minutes Estimated dose reported as ( Ka, r): 1318 mGy IMPRESSION: 1. Tiny foci of pseudoaneurysm/extravasation arising from the very lateral and peripheral branches of the circumflex artery. These were successfully embolized with coils. 2. More focal pseudoaneurysm/extravasation arising from very peripheral and lateral branches of one of the deep femoral artery main cost recorder branches. Despite numerous attempts the tiny feeding arteries to this bleed could not be selected and embolized. More proximal embolization would likely compromise a large area of vascular supply to the right and therefore this was not attempted. Given the very lateral and superficial location of the bleed the approximate site at the skin was marked with ink. After discussion with the referring physician patient the decision was made to placea a superficial compression device at the site in the lateral mid thigh. Signed: Emigdio Meza MDReport Verified Date/Time: 07/30/2018 14:56:34 Reading Location: [facility] Radiology Reading Room RAD, CHEST, 1 VIEW, NON [id number] 11:24:00Reason for exam:->Fluid overloadShould this be performed at the bedside?->YesFINAL REPORT Comparison: 07/29/2018 TECHNIQUE: Single view of the chest FINDINGS: Bilateral interstitial and airspace opacities are again seen. Compared to previous exam overall there is no significant change. No large effusions. Cardiac silhouette is enlarged. Postsurgical changes in the mediastinum noted. Support lines and tubes are stable. Signed: Emigdio Meza MDReport VerifiedDate/Time: 07/30/2018 11:24:33 Reading Location: [facility] Radiology Reading Room BASIC METABOLIC [id number] 07:04:00 Test Item Value Reference Range Interpretation Comments SODIUM (BEAKER) 136 meq/L 135-148 (test code = 381) POTASSIUM (BEAKER) 4.5 meq/L 3.6-5.5 (test code = 379) CHLORIDE (BEAKER) 103 meq/L 98-106 (test code = 382) CO2 (BEAKER) (test 23 meq/L 20-29 code = 355) BLOOD UREA NITROGEN 36 mg/dL 10-26 H (BEAKER) (test code = 354) CREATININE (BEAKER) 1.25 mg/dL 0.50-1.20 H (test code = 358) GLUCOSE RANDOM 158 mg/dL 70-110 H (BEAKER) (test code = 652) CALCIUM (BEAKER) 7.8 mg/dL 8.5-10.5 L (test code = 697) EGFR (BEAKER) (test 55 mL/min/1.73 ESTIMA CINTHYA GFR IS code = 1092) sq m NOT ACCURATE CREATININE CLEARANCE IN PREDICTING GLOMERULAR FILTRATION RATE . ESTIMATED GFR I S NOT APPLICABLE FOR DIALYSIS PATIEN TS. [id number] 06:59:00 Test Item Value Reference Range Interpretation Comments PHOSPHORUS (BEAKER) (test code = 4.1 mg/dL 2.5-4.5 604) [id number] 06:54:00 Test Item Value Reference Range Interpretation Comments MAGNESIUM (BEAKER) (test code = 1.5 mg/dL 1.5-3.0 627) CBC W/PLT COUNT & AUTO [id number] 06:48:00 Test Item Value Reference Range Interpretation Comments WHITE BLOOD CELL COUNT (BEAKER) 21.1 K/ L 4.0-10.0 H (test code = 775) RED BLOOD CELL COUNT (BEAKER) 2.37 M/ L 4.20-5.80 L (test code = 761) HEMOGLOBIN (BEAKER) (test code = 7.2 GM/DL 13.0-16.8 L 410) HEMATOCRIT (BEAKER) (test code = 22.0 % 36.0-50.0 L 411) MEAN CORPUSCULAR VOLUME (BEAKER) 92.8 fL 82.0-99.0 (test code = 753) MEAN CORPUSCULAR HEMOGLOBIN 30.4 pg 27.0-33.0 (BEAKER) (test code = 751) MEAN CORPUSCULAR HEMOGLOBIN CONC 32.7 GM/DL 32.0-36.0 (BEAKER) (test code = 752) RED CELL DISTRIBUTION WIDTH 15.5 % 12.0-15.0 H (BEAKER) (test code = 412) PLATELET COUNT (BEAKER) (test 140 K/CU MM 150-430 L code = 756) MEAN PLATELET VOLUME (BEAKER) 10.5 fL 6.0-11.5 (test code = 754) NUCLEATED RED BLOOD CELLS 0 /100 WBC 0-0 (BEAKER) (test code = 413) NEUTROPHILS RELATIVE PERCENT 91 % (BEAKER) (test code = 429) LYMPHOCYTES RELATIVE PERCENT 2 % (BEAKER) (test code = 430) MONOCYTES RELATIVE PERCENT 6 % (BEAKER) (test code = 431) EOSINOPHILS RELATIVE PERCENT 0 % (BEAKER) (test code = 432) BASOPHILS RELATIVE PERCENT 0 % (BEAKER) (test code = 437) NEUTROPHILS ABSOLUTE COUNT 19.21 K/ L 1.80-8.00 H (BEAKER) (test code = 670) LYMPHOCYTES ABSOLUTE COUNT 0.39 K/ L 1.48-4.50 L (BEAKER) (test code = 414) MONOCYTES ABSOLUTE COUNT (BEAKER) 1.19 K/ L 0.00-1.30 (test code = 415) EOSINOPHILS ABSOLUTE COUNT 0.00 K/ L 0.00-0.50 (BEAKER) (test code = 416) BASOPHILS ABSOLUTE COUNT (BEAKER) 0.02 K/ L 0.00-0.20 (test code = 417) IMMATURE GRANULOCYTES-RELATIVE 1 % 0-0 H PERCENT (BEAKER) (test code = 2801) CT, BRAIN, WITHOUT [id number] 01:21:00FINAL REPORT EXAM: CT head without contrast. CLINICAL HISTORY: Seizures new or progressive COMPARISON: None. TECHNIQUE: CT images of the head were obtained without intravenous contrast. This exam was performed according to our departmental dose optimization program which includes automated exposure control, adjustment of the mA and/or kV according to patient's size and/or useof iterative reconstructive technique. FINDINGS:There is generalized parenchymal atrophy. There are mild white matter microvascular ischemic changes.There is no acute intracranial hemorrhage, extra-axial fluid collection, mass effect, herniation, hydrocephalus or large demarcated acute territorial infarct. The basal cisterns are patent. There are bilateral lens replacements. The visualized paranasal sinuses and tympanomastoid cavities are clear. The skull base and calvarium are intact. IMPRESSION: Mild white matter microvascular ischemic changes. No CT evidence of an acute intracranial process. MR may be helpful for further evaluation if clinically warranted. Signed: Lois Mckoy MDReport Verified Date/Time: 07/30/2018 01:21:44 Reading Location: [address] Body Reading Room HEMOGLOBIN AND [id number] 00:41:00 Test Item Value Reference Range Interpretation Comments HEMOGLOBIN (BEAKER) (test code = 8.3 GM/DL 13.0-16.8 L 410) HEMATOCRIT (BEAKER) (test code = 24.7 % 36.0-50.0 L 411) B-TYPE NATRIURETIC FACTOR (BNP)2018-07-30 00:40:00 Test Item Value Reference Range Interpretation Comments B-TYPE NATRIURETIC PEPTIDE (BEAKER) 234 pg/mL 0-100 H (test code = 700) BASIC METABOLIC [id number] 00:23:00 Test Item Value Reference Range Interpretation Comments SODIUM (BEAKER) 133 meq/L 135-148 L (test code = 381) POTASSIUM (BEAKER) 4.3 meq/L 3.6-5.5 (test code = 379) CHLORIDE (BEAKER) 101 meq/L 98-106 (test code = 382) CO2 (BEAKER) (test 19 meq/L 20-29 L code = 355) BLOOD UREA NITROGEN 33 mg/dL 10-26 H (BEAKER) (test code = 354) CREATININE (BEAKER) 1.30 mg/dL 0.50-1.20 H (test code = 358) GLUCOSE RANDOM 181 mg/dL 70-110 H (BEAKER) (test code = 652) CALCIUM (BEAKER) 7.8 mg/dL 8.5-10.5 L (test code = 697) EGFR (BEAKER) (test 53 mL/min/1.73 ESTIMA CINTHYA GFR IS code = 1092) sq m NOT ACCURATE CREATININE CLEARANCE IN PREDICTING GLOMERULAR FILTRATION RATE . ESTIMATED GFR I S NOT APPLICABLE FOR DIALYSIS PATIEN TS. [id number] 00:15:00 Test Item Value Reference Range Interpretation Comments MAGNESIUM (BEAKER) (test code = 1.5 mg/dL 1.5-3.0 627) RAD, CHEST, 1 VIEW, NON [id number] 17:20:00Reason for exam:->shortness of breathShould this be performed at the bedside?->YesFINAL REPORT Comparison: 07/28/2018 TECHNIQUE: Single view of the chest FINDINGS: Bilateral interstitial and airspace opacities are again noted, overall may be somewhat increased from before. No large effusions. No gross new lung parenchymal changes. Cardiac silhouette is enlarged. Postsurgical changes in the mediastinum noted. Left-sided pacing device noted. Right-sided PICC line noted. Signed: Emigdio Meza MDReport Verified Date/Time: 07/29/2018 17:20:34 Reading Location: [facility] Radiology Reading Room ANG, NON-TUNNELED CATH/PICC >5 Y.O. WITH [id number] 14:30:00Reason for exam:->vesicants and blood productsFINAL REPORT Procedure: PICC line placement Veterinarian Poultry: Malinda History: Need for prolonged IV access. Technique: Following informed written consent, the patient's rightupper extremity was prepped and draped with maximal sterile barrier technique. All elements maximal sterile barrier technique was utilized for this procedure, including utilization of sterile scrub solution for skin prep, a large sterile sheet to cover the areas of the patient that were not prepped, and hand hygiene, mask, head covering, and sterile gown for performing radiologist and scrub technologist. 2% lidocaine was given locally for anesthesia. No conscious sedation was administered. Access was gained to the right basilic vein using ultrasound guidance and a micropuncture needle. A 5 Marshallese double-lumen PICC line was cut to 36 cm and placed through a peel-away sheath and over wire into position centrallyunder fluoroscopic control. The catheter was secured to the skin using 2-0 silk suture. There were no immediate complications. Findings: The right basilic vein was patent by ultrasound. An image was saved PACS. Spot radiograph of the chest following catheter insertion demonstrates the right upper extremity PICC line to lie in expected position with its tip in the superior vena cava. Total Fluoroscopytime: 0.1min. Estimated dose reported as ( Ka, r): 1 mGy Impression: 1. Successful uncomplicated berna cement of a right upper extremity PICC line. Signed: Emigdio Meza MDReport Verified Date/Time: 07/29/2018 14:30:57 Reading Location: [facility] Radiology Reading Room CBC W/PLT COUNT & AUTO [id number] 07:31:00 Test Item Value Reference Range Interpretation Comments WHITE BLOOD CELL COUNT (BEAKER) 20.2 K/ L 4.0-10.0 H (test code = 775) RED BLOOD CELL COUNT (BEAKER) 3.12 M/ L 4.20-5.80 L (test code = 761) HEMOGLOBIN (BEAKER) (test code = 9.3 GM/DL 13.0-16.8 L 410) HEMATOCRIT (BEAKER) (test code = 28.7 % 36.0-50.0 L 411) MEAN CORPUSCULAR VOLUME (BEAKER) 92.0 fL 82.0-99.0 (test code = 753) MEAN CORPUSCULAR HEMOGLOBIN 29.8 pg 27.0-33.0 (BEAKER) (test code = 751) MEAN CORPUSCULAR HEMOGLOBIN CONC 32.4 GM/DL 32.0-36.0 (BEAKER) (test code = 752) RED CELL DISTRIBUTION WIDTH 15.8 % 12.0-15.0 H (BEAKER) (test code = 412) PLATELET COUNT (BEAKER) (test 162 K/CU MM 150-430 code = 756) MEAN PLATELET VOLUME (BEAKER) 11.8 fL 6.0-11.5 H (test code = 754) NUCLEATED RED BLOOD CELLS 0 /100 WBC 0-0 (BEAKER) (test code = 413) (MANUAL DIFFERENTIAL)2018-07-29 07:31:00 Test Item Value Reference Range Interpretation Comments NEUTROPHILS - REL (DIFF) (BEAKER) 84 % (test code = 1359) LYMPHOCYTES - REL (DIFF) (BEAKER) 4 % (test code = 1360) MONOCYTES - REL (DIFF) (BEAKER) 12 % (test code = 1361) NEUTROPHILS - ABS (DIFF) (BEAKER) 16.97 K/ L 1.80-8.00 H (test code = 1365) LYMPHOCYTES - ABS (DIFF) (BEAKER) 0.81 K/ L 1.48-4.50 L (test code = 1366) MONOCYTES - ABS (DIFF) (BEAKER) 2.42 K/ L 0.00-1.30 H (test code = 1367) TOTAL COUNTED (BEAKER) (test code 100 = 1351) WBC MORPHOLOGY (BEAKER) (test code Normal = 487) LARGE PLT(BEAKER) (test code = Present 2156) ANISOCYTOSIS (BEAKER) (test code = 1+ few 961) HYPOCHROMIA (BEAKER) (test code = 1+ few 963) [id number] 05:42:00 Test Item Value Reference Range Interpretation Comments PROTIME (BEAKER) (test code = 759) 14.0 sec 9.3-12.0 H INR (BEAKER) (test code = 370) 1.3 <=5.9 PARTIAL THROMBOPLASTIN TIME (BEAKER) 31.9 sec 23.0-35.0 (test code = 760) RECOMMENDED COUMADIN/WARFARIN INR THERAPY RANGESSTANDARD DOSE: 2.0 - 3.0 Includes: PROPHYLAXIS forvenous thrombosis, systemic embolization; TREATMENT for venous thrombosis and/or pulmonary embolus.HIGH RISK: Target INR is 2.5-3.5 for patients with mechanical heart valves.Final Information (Auto Output)Final Information (Auto Output)Final Information (Auto Output)PROTHROMBIN TIME/INR 2018-07-29 05:42:00 Test Item Value Reference Range Interpretation Comments PROTIME (BEAKER) (test code = 14.0 seconds 9.3-12.0 H 759) INR (BEAKER) (test code = 370) 1.3 <=5.9 RECOMMENDED COUMADIN/WARFARIN INR THERAPY RANGESSTANDARD DOSE: 2.0 - 3.0 Includes: PROPHYLAXIS forvenous thrombosis, systemic embolization; TREATMENT for venous thrombosis and/or pulmonary embolus.HIGH RISK: Target INR is 2.5-3.5 for patients with mechanical heart valves.BASIC METABOLIC [id number] 05:31:00 Test Item Value Reference Range Interpretation Comments SODIUM (BEAKER) 130 meq/L 135-148 L (test code = 381) POTASSIUM (BEAKER) 5.4 meq/L 3.6-5.5 Specimen moderately (test code = 379) hemolyzed CHLORIDE (BEAKER) 101 meq/L 98-106 (test code = 382) CO2 (BEAKER) (test 19 meq/L 20-29 L code = 355) BLOOD UREA NITROGEN 27 mg/dL 10-26 H (BEAKER) (test code = 354) CREATININE (BEAKER) 1.36 mg/dL 0.50-1.20 H Specimen moderately (test code = 358) hemolyzed GLUCOSE RANDOM 112 mg/dL 70-110 H (BEAKER) (test code = 652) CALCIUM (BEAKER) 7.7 mg/dL 8.5-10.5 L (test code = 697) EGFR (BEAKER) (test 50 mL/min/1.73 ESTIMA CINTHYA GFR IS code = 1092) sq m NOT ACCURATE CREATININE CLEARANCE IN PREDICTING GLOMERULAR FILTRATION RATE . ESTIMATED GFR I S NOT APPLICABLE FOR DIALYSIS PATIEN TS. CBC W/PLT COUNT & AUTO [id number] 19:57:00 Test Item Value Reference Range Interpretation Comments WHITE BLOOD CELL COUNT (BEAKER) 23.6 K/ L 4.0-10.0 H (test code = 775) RED BLOOD CELL COUNT (BEAKER) 3.10 M/ L 4.20-5.80 L (test code = 761) HEMOGLOBIN (BEAKER) (test code = 9.5 GM/DL 13.0-16.8 L 410) HEMATOCRIT (BEAKER) (test code = 29.0 % 36.0-50.0 L 411) MEAN CORPUSCULAR VOLUME (BEAKER) 93.5 fL 82.0-99.0 (test code = 753) MEAN CORPUSCULAR HEMOGLOBIN 30.6 pg 27.0-33.0 (BEAKER) (test code = 751) MEAN CORPUSCULAR HEMOGLOBIN CONC 32.8 GM/DL 32.0-36.0 (BEAKER) (test code = 752) RED CELL DISTRIBUTION WIDTH 15.8 % 12.0-15.0 H (BEAKER) (test code = 412) PLATELET COUNT (BEAKER) (test 202 K/CU MM 150-430 code = 756) MEAN PLATELET VOLUME (BEAKER) 10.8 fL 6.0-11.5 (test code = 754) NUCLEATED RED BLOOD CELLS 0 /100 WBC 0-0 (BEAKER) (test code = 413) (MANUAL DIFFERENTIAL)2018-07-28 19:57:00 Test Item Value Reference Range Interpretation Comments NEUTROPHILS - REL (DIFF) (BEAKER) 83 % (test code = 1359) LYMPHOCYTES - REL (DIFF) (BEAKER) 6 % (test code = 1360) MONOCYTES - REL (DIFF) (BEAKER) 9 % (test code = 1361) EOSINOPHILS - REL (DIFF) (BEAKER) 1 % (test code = 1362) BANDS - REL (DIFF) (BEAKER) (test 1 % 0-10 code = 1348) NEUTROPHILS - ABS (DIFF) (BEAKER) 19.59 K/ L 1.80-8.00 H (test code = 1365) LYMPHOCYTES - ABS (DIFF) (BEAKER) 1.42 K/ L 1.48-4.50 L (test code = 1366) MONOCYTES - ABS (DIFF) (BEAKER) 2.12 K/ L 0.00-1.30 H (test code = 1367) EOSINOPHILS - ABS (DIFF) (BEAKER) 0.24 K/ L 0.00-0.50 (test code = 1368) BANDS-ABS (DIFF) (BEAKER) (test 0.2 K/ L 0.0-0.8 code = 1349) TOTAL COUNTED (BEAKER) (test code 100 = 1351) BANDS + SEGMENTED NEUTROPHILS 19.82 (BEAKER) (test code = 1352) WBC MORPHOLOGY (BEAKER) (test code Normal = 487) PLT MORPHOLOGY (BEAKER) (test code Normal = 486) RBC MORPHOLOGY (BEAKER) (test code Normal = 762) BASIC METABOLIC [id number] 19:48:00 Test Item Value Reference Range Interpretation Comments SODIUM (BEAKER) 130 meq/L 135-148 L (test code = 381) POTASSIUM (BEAKER) 4.7 meq/L 3.6-5.5 (test code = 379) CHLORIDE (BEAKER) 98 meq/L 98-106 (test code = 382) CO2 (BEAKER) (test 21 meq/L 20-29 code = 355) BLOOD UREA NITROGEN 28 mg/dL 10-26 H (BEAKER) (test code = 354) CREATININE (BEAKER) 1.35 mg/dL 0.50-1.20 H (test code = 358) GLUCOSE RANDOM 128 mg/dL 70-110 H (BEAKER) (test code = 652) CALCIUM (BEAKER) 7.7 mg/dL 8.5-10.5 L (test code = 697) EGFR (BEAKER) (test 51 mL/min/1.73 ESTIMA CINTHYA GFR IS code = 1092) sq m NOT ACCURATE CREATININE CLEARANCE IN PREDICTING GLOMERULAR FILTRATION RATE . ESTIMATED GFR I S NOT APPLICABLE FOR DIALYSIS PATIEN TS. [id number] 19:39:00 Test Item Value Reference Range Interpretation Comments PROTIME (BEAKER) (test code = 759) 14.0 sec 9.3-12.0 H INR (BEAKER) (test code = 370) 1.3 <=5.9 PARTIAL THROMBOPLASTIN TIME (BEAKER) 35.8 sec 23.0-35.0 H (test code = 760) RECOMMENDED COUMADIN/WARFARIN INR THERAPY RANGESSTANDARD DOSE: 2.0 - 3.0 Includes: PROPHYLAXIS forvenous thrombosis, systemic embolization; TREATMENT for venous thrombosis and/or pulmonary embolus.HIGH RISK: Target INR is 2.5-3.5 for patients with mechanical heart valves.Final Information (Auto Output)Final Information (Auto Output)Final Information (Auto Output)[id number] 19:37:00 Test Item Value Reference Range Interpretation Comments MAGNESIUM (ALLIEAKER) (test code = 1.5 mg/dL 1.5-3.0 627) CT, EXTREMITY, LOWER, WITH CONTRAST, [id number] 17:04:00Purpose is to localize source of postoperative bleeding and perform embolization procedure. Discussed with radiologist.FINAL REPORT CT right femur, with contrast Comparison: Right hip x-ray date07/26/2018. Reason for exam: Postoperative bleeding Discussion: Axial CT imaging of the right femur was performed following administration of intravenous contrast and evaluated with bone and soft tissue windows. This exam was performed according to our departmental dose optimization program which includes automated exposure control, adjustment of the mA and/or kV according to patient's size and/or use of iterative reconstructive technique. Findings: Postsurgical changes related to placement of an intramedullary femoral stem and placement of a partially threaded screw as well as a fully threaded screw within the femoral head are present for fixation of an intertrochanteric fracture extending fromthe greater to the lesser trochanter. There is anterior superior displacement of the lesser trochanter which abuts the inferior portion of the femoral head. Minimal displacement of the greater tuberosity is demonstrated. No evidence of hardware fracture. Soft tissue gas about the right hip and proximal femur is demonstrated and compatible with recent postsurgical change. Circumferential edema within t he soft tissues of the right thigh. No focal fluid collections. Soft tissue calcifications within the bilateral internal iliac arteries and scattered atherosclerotic related along the bilateral femoralvasculature. Degenerative changes of the right sacroiliac joint with subchondral cystic change involving the superior aspect of the sacroiliac joint. Enthesopathy involving the origin of the right hamstring muscles. Chondrocalcinosis involving the medial and lateral compartments of the knee as well asthe symphysis pubis. Tricompartmental degenerative changes of the knee are present. IMPRESSION: Postsurgical changes related to open reduction and internal fixation of the right intertrochanteric fracture. There is superior displacement of the lesser trochanter which abuts the inferior portion of the right femoral head. Soft tissue gas compatible with recent surgical intervention. Extensive soft tissue swelling around the right hip. Presence of intravenous contrast decreases the exam sensitivity for detecting blood products; allowing for this limitation, no large hematoma is identified. Signed: Anu Garcia MDReport Verified Date/Time: 07/28/2018 17:04:13 Reading Location: [facility] C013T Transitional Reading Room CBC (HEMOGRAM ONLY)2018-07-28 12:03:00 Test Item Value Reference Range Interpretation Comments WHITE BLOOD CELL COUNT (BEAKER) 18.5 K/ L 4.0-10.0 H (test code = 775) RED BLOOD CELL COUNT (BEAKER) 3.17 M/ L 4.20-5.80 L (test code = 761) HEMOGLOBIN (BEAKER) (test code = 9.3 GM/DL 13.0-16.8 L 410) HEMATOCRIT (BEAKER) (test code = 29.9 % 36.0-50.0 L 411) MEAN CORPUSCULAR VOLUME (BEAKER) 94.3 fL 82.0-99.0 (test code = 753) MEAN CORPUSCULAR HEMOGLOBIN 29.3 pg 27.0-33.0 (BEAKER) (test code = 751) MEAN CORPUSCULAR HEMOGLOBIN CONC 31.1 GM/DL 32.0-36.0 L (BEAKER) (test code = 752) RED CELL DISTRIBUTION WIDTH 15.6 % 12.0-15.0 H (BEAKER) (test code = 412) PLATELET COUNT (BEAKER) (test 172 K/CU MM 150-430 code = 756) MEAN PLATELET VOLUME (BEAKER) 10.8 fL 6.0-11.5 (test code = 754) NUCLEATED RED BLOOD CELLS 0 /100 WBC 0-0 (BEAKER) (test code = 413) URINALYSIS W/ REFLEX URINE [id number] 11:04:00 Test Item Value Reference Range Interpretation Comments COLOR (BEAKER) (test code = 470) Yellow CLARITY (BEAKER) (test code = 469) Clear SPECIFIC GRAVITY UA (BEAKER) (test 1.025 1.001-1.035 code = 468) PH UA (BEAKER) (test code = 467) 5.5 5.0-8.0 PROTEIN UA (BEAKER) (test code = Negative Negative 464) GLUCOSE UA (BEAKER) (test code = Negative Negative 365) KETONES UA (BEAKER) (test code = Negative Negative 371) BILIRUBIN UA (BEAKER) (test code = Negative Negative 462) BLOOD UA (BEAKER) (test code = 461) Trace Negative A NITRITE UA (BEAKER) (test code = Negative Negative 465) LEUKOCYTE ESTERASE UA (BEAKER) Negative Negative (test code = 466) UROBILINOGEN UA (BEAKER) (test code 0.2 mg/dL 0.2-1.0 = 463) BACTERIA (BEAKER) (test code = 517) Few RBC UA-MANUAL (BEAKER) (test code = <5 /HPF 1659) WBC UA-MANUAL (BEAKER) (test code = <5 /HPF 1661) SQUAMOUS EPITHELIAL MANUAL (BEAKER) <5 /HPF (test code = 1663) SOURCE(BEAKER) (test code = 2795) RAD, CHEST, 1 VIEW, NON [id number] 10:20:00Reason for exam:->shortness of breathShould this be performed at the bedside?->YesFINAL REPORT Chest, 1 view, 07/28/2018 8:40 AM. History: Shortness of breath. C omparison: 07/27/2018. Discussion: The cardiomediastinal silhouette and pulmonary vasculature are mildly prominent. Diffuse bilateral interstitial opacities are unchanged. Left subclavian dual-lead pacer and median sternotomy wires are again noted. The soft tissues and osseous structures are intact. IMPRESSION: No significant change Signed: Anish Espinoza [facility] Verified Date/Time: 07/28/2018 10:20:14 Reading Location: [facility] Radiology Reading Room REHENSIVE METABOLIC [id number] 02:56:00 Test Item Value Reference Range Interpretation Comments TOTAL PROTEIN 5.0 gm/dL 6.0-8.5 L (BEAKER) (test code = 770) ALBUMIN (BEAKER) 2.7 g/dL 3.5-5.0 L (test code = 1145) ALKALINE PHOSPHATASE 78 U/L 30-115 (BEAKER) (test code = 346) BILIRUBIN TOTAL 1.3 mg/dL 0.1-1.2 H (BEAKER) (test code = 377) SODIUM (BEAKER) (test 138 meq/L 135-148 code = 381) POTASSIUM (BEAKER) 4.9 meq/L 3.6-5.5 (test code = 379) CHLORIDE (BEAKER) 102 meq/L 98-106 (test code = 382) CO2 (BEAKER) (test 25 meq/L 20-29 code = 355) BLOOD UREA NITROGEN 28 mg/dL 10-26 H (BEAKER) (test code = 354) CREATININE (BEAKER) 1.41 mg/dL 0.50-1.20 H (test code = 358) GLUCOSE RANDOM 118 mg/dL 70-110 H (BEAKER) (test code = 652) CALCIUM (BEAKER) 8.3 mg/dL 8.5-10.5 L (test code = 697) AST (SGOT) (BEAKER) 63 U/L 5-40 H (test code = 353) ALT (SGPT) (BEAKER) 49 U/L 5-50 (test code = 347) EGFR (BEAKER) (test 48 mL/min/1.73 ESTIMA CINTHYA GFR IS code = 1092) sq m NOT ACCURATE CREATININE CLEARANCE IN PREDICTING GLOMERULAR FILTRATION RATE . ESTIMATED GFR I S NOT APPLICABLE FOR DIALYSIS PATIEN TS. IRON, TIBC, % SAT. (WITHOUT FERRITIN)2018-07-28 02:56:00 Test Item Value Reference Range Interpretation Comments IRON (BEAKER) (test code = 547) 80.0 ug/dL 45.0-170.0 TOTAL IRON BINDING CAPACITY 203 ug/dL 250-550 L (BEAKER) (test code = 769) IRON % SATURATION (2) (BEAKER) 39 % 20-55 (test code = 2590) [id number] 02:44:00 Test Item Value Reference Range Interpretation Comments MAGNESIUM (BEAKER) (test code = 1.5 mg/dL 1.5-3.0 627) CBC W/PLT COUNT & AUTO [id number] 02:35:00 Test Item Value Reference Range Interpretation Comments WHITE BLOOD CELL COUNT (BEAKER) 17.4 K/ L 4.0-10.0 H (test code = 775) RED BLOOD CELL COUNT (BEAKER) 3.46 M/ L 4.20-5.80 L (test code = 761) HEMOGLOBIN (BEAKER) (test code = 10.1 GM/DL 13.0-16.8 L 410) HEMATOCRIT (BEAKER) (test code = 32.3 % 36.0-50.0 L 411) MEAN CORPUSCULAR VOLUME (BEAKER) 93.4 fL 82.0-99.0 (test code = 753) MEAN CORPUSCULAR HEMOGLOBIN 29.2 pg 27.0-33.0 (BEAKER) (test code = 751) MEAN CORPUSCULAR HEMOGLOBIN CONC 31.3 GM/DL 32.0-36.0 L (BEAKER) (test code = 752) RED CELL DISTRIBUTION WIDTH 15.5 % 12.0-15.0 H (BEAKER) (test code = 412) PLATELET COUNT (BEAKER) (test 178 K/CU MM 150-430 code = 756) MEAN PLATELET VOLUME (BEAKER) 10.3 fL 6.0-11.5 (test code = 754) NUCLEATED RED BLOOD CELLS 0 /100 WBC 0-0 (BEAKER) (test code = 413) NEUTROPHILS RELATIVE PERCENT 87 % (BEAKER) (test code = 429) LYMPHOCYTES RELATIVE PERCENT 3 % (BEAKER) (test code = 430) MONOCYTES RELATIVE PERCENT 9 % (BEAKER) (test code = 431) EOSINOPHILS RELATIVE PERCENT 1 % (BEAKER) (test code = 432) BASOPHILS RELATIVE PERCENT 0 % (BEAKER) (test code = 437) NEUTROPHILS ABSOLUTE COUNT 15.03 K/ L 1.80-8.00 H (BEAKER) (test code = 670) LYMPHOCYTES ABSOLUTE COUNT 0.57 K/ L 1.48-4.50 L (BEAKER) (test code = 414) MONOCYTES ABSOLUTE COUNT (BEAKER) 1.54 K/ L 0.00-1.30 H (test code = 415) EOSINOPHILS ABSOLUTE COUNT 0.08 K/ L 0.00-0.50 (BEAKER) (test code = 416) BASOPHILS ABSOLUTE COUNT (BEAKER) 0.03 K/ L 0.00-0.20 (test code = 417) IMMATURE GRANULOCYTES-RELATIVE 1 % 0-0 H PERCENT (BEAKER) (test code = 2801) RAD, CHEST, 1 VIEW, NON [id number] 14:52:00Reason for exam:->pnaShould this be performed at the bedside?->YesFINAL REPORT Chest dated 07/27/2018 COMPARISON: 07/26/2018 Clinical Information:pna Comment: Heart is enlarged. AICD remains in place. Pulmonary vasculature is indistinct. Interstitial disease is seen bilaterally suggestive of vascular congestion or pulmonary edema. No pleural effusion or pneumothorax is seen. Impression: No interval change. Signed: Daryl Martinez MDReport Verified Date/Time: 07/27/2018 14:52:36 Reading Location: [facility] B1 C013W Consult Reading [facility] 2018-07-27 06:15:00 Test Item Value Reference Range Interpretation Comments SODIUM (BEAKER) 136 meq/L 135-148 (test code = 381) POTASSIUM (BEAKER) 4.6 meq/L 3.6-5.5 (test code = 379) CHLORIDE (BEAKER) 101 meq/L 98-106 (test code = 382) CO2 (BEAKER) (test 23 meq/L 20-29 code = 355) BLOOD UREA NITROGEN 25 mg/dL 10-26 (BEAKER) (test code = 354) CREATININE (BEAKER) 1.50 mg/dL 0.50-1.20 H (test code = 358) GLUCOSE RANDOM 108 mg/dL 70-110 (BEAKER) (test code = 652) CALCIUM (BEAKER) 8.5 mg/dL 8.5-10.5 (test code = 697) EGFR (BEAKER) (test 45 mL/min/1.73 ESTIMA CINTHYA GFR IS code = 1092) sq m NOT ACCURATE CREATININE CLEARANCE IN PREDICTING GLOMERULAR FILTRATION RATE . ESTIMATED GFR I S NOT APPLICABLE FOR DIALYSIS PATIEN TS. CBC W/PLT COUNT & AUTO [id number] 05:56:00 Test Item Value Reference Range Interpretation Comments WHITE BLOOD CELL COUNT (BEAKER) 15.8 K/ L 4.0-10.0 H (test code = 775) RED BLOOD CELL COUNT (BEAKER) 2.95 M/ L 4.20-5.80 L (test code = 761) HEMOGLOBIN (BEAKER) (test code = 8.2 GM/DL 13.0-16.8 L 410) HEMATOCRIT (BEAKER) (test code = 28.0 % 36.0-50.0 L 411) MEAN CORPUSCULAR VOLUME (BEAKER) 94.9 fL 82.0-99.0 (test code = 753) MEAN CORPUSCULAR HEMOGLOBIN 27.8 pg 27.0-33.0 (BEAKER) (test code = 751) MEAN CORPUSCULAR HEMOGLOBIN CONC 29.3 GM/DL 32.0-36.0 L (BEAKER) (test code = 752) RED CELL DISTRIBUTION WIDTH 16.2 % 12.0-15.0 H (BEAKER) (test code = 412) PLATELET COUNT (BEAKER) (test 212 K/CU MM 150-430 code = 756) MEAN PLATELET VOLUME (BEAKER) 10.7 fL 6.0-11.5 (test code = 754) NUCLEATED RED BLOOD CELLS 0 /100 WBC 0-0 (BEAKER) (test code = 413) NEUTROPHILS RELATIVE PERCENT 81 % (BEAKER) (test code = 429) LYMPHOCYTES RELATIVE PERCENT 5 % (BEAKER) (test code = 430) MONOCYTES RELATIVE PERCENT 11 % (BEAKER) (test code = 431) EOSINOPHILS RELATIVE PERCENT 2 % (BEAKER) (test code = 432) BASOPHILS RELATIVE PERCENT 0 % (BEAKER) (test code = 437) NEUTROPHILS ABSOLUTE COUNT 12.83 K/ L 1.80-8.00 H (BEAKER) (test code = 670) LYMPHOCYTES ABSOLUTE COUNT 0.71 K/ L 1.48-4.50 L (BEAKER) (test code = 414) MONOCYTES ABSOLUTE COUNT (BEAKER) 1.74 K/ L 0.00-1.30 H (test code = 415) EOSINOPHILS ABSOLUTE COUNT 0.37 K/ L 0.00-0.50 (BEAKER) (test code = 416) BASOPHILS ABSOLUTE COUNT (BEAKER) 0.05 K/ L 0.00-0.20 (test code = 417) IMMATURE GRANULOCYTES-RELATIVE 1 % 0-0 H PERCENT (BEAKER) (test code = 2801) RAD, ELBOW, 3 VIEWS, [id number] 16:31:00Reason for exam:->Follow-up fracture distal humerusShould this be performed at the bedside?->YesFINAL REPORT Technique: Multiple views of the left elbow FINDINGS: There is afracture deformity of the distal left humerus with surrounding callus formation. 2 surgical screws are seen along the medial aspect. There is osteopenia. There is questionable irregularity of the radial head. If there is concern for acute fracture CT recommended. Otherwise no definite acute fracture or dislocation seen. No suspicious osseous lytic or blastic lesions. Signed: Emigdio Meza MDReport Verified Date/Time: 07/26/2018 16:31:10 Reading Location: [facility] Radiology Reading Room RAD, HIP, 2 VIEWS, RIGHT 2018-07-26 16:29:00Reason for exam:->Right hip fractureShould this be performed at the bedside?->YesFINAL REPORT Technique: 2 views of the right hip FINDINGS: There is a right femoral intertrochanteric fracture with almost 90 degrees angulation of the fracture site. The femoralhead itself is anatomically articulated within the joint space. There is osteopenia. There is surrounding soft tissue edema. Signed: Emigdio Meza MDReport Verified Date/Time: 07/26/2018 16:29:09 Reading Location: [facility] Radiology Reading Room TROPONIN [id number] 13:25:00 Test Item Value Reference Range Interpretation Comments TROPONIN I (BEAKER) (test code = 0.04 ng/mL 0.00-0.15 397) Troponin I (TnI) levels must be interpreted in the context of the presenting symptoms and the clinical findings. Elevated TnI levels indicate myocardial damage, but are not specific for ischemic heart disease. Elevated TnI levels are seen in patients with other cardiac conditions (including myocarditis and congestive heart failure), and slight TnI elevations occur in patients with other conditions, including sepsis, renal failure, acidosis, acute neurological disease, and persistent tachyarrhythmia.RAD, CHEST, 1 VIEW, NON [id number] 10:14:00Reason for exam:->PULM EDEMAShould this be performed at the bedside?->YesFINAL REPORT Comparison: None TECHNIQUE: Single view of the chest FINDINGS: There is mild vascular congestion. No overt consolidation, edema, or large pleural effusion. Cardiac silhouette is enlarged. Postsurgical changes in the mediastinum. Left-sided pacing device noted. Signed : Emigdio Meza MDReport Verified Date/Time: 07/26/2018 10:14:58 Reading Location: [facility] Radiology Reading Room [facility] [id number] 07:03:00 Test Item Value Reference Range Interpretation Comments TROPONIN I (BEAKER) (test code = 0.04 ng/mL 0.00-0.15 397) Troponin I (TnI) levels must be interpreted in the context of the presenting symptoms and the clinical findings. Elevated TnI levels indicate myocardial damage, but are not specific for ischemic heart disease. Elevated TnI levels are seen in patients with other cardiac conditions (including myocarditis and congestive heart failure), and slight TnI elevations occur in patients with other conditions, including sepsis, renal failure, acidosis, acute neurological disease, and persistent tachyarrhythmia.COMPREHENSIVE METABOLIC [id number] 06:57:00 Test Item Value Reference Range Interpretation Comments TOTAL PROTEIN 5.4 gm/dL 6.0-8.5 L (BEAKER) (test code = 770) ALBUMIN (BEAKER) 3.0 g/dL 3.5-5.0 L (test code = 1145) ALKALINE PHOSPHATASE 94 U/L 30-115 (BEAKER) (test code = 346) BILIRUBIN TOTAL 0.7 mg/dL 0.1-1.2 (BEAKER) (test code = 377) SODIUM (BEAKER) (test 141 meq/L 135-148 code = 381) POTASSIUM (BEAKER) 4.3 meq/L 3.6-5.5 (test code = 379) CHLORIDE (BEAKER) 103 meq/L 98-106 (test code = 382) CO2 (BEAKER) (test 29 meq/L 20-29 code = 355) BLOOD UREA NITROGEN 22 mg/dL 10-26 (BEAKER) (test code = 354) CREATININE (BEAKER) 1.45 mg/dL 0.50-1.20 H (test code = 358) GLUCOSE RANDOM 108 mg/dL 70-110 (BEAKER) (test code = 652) CALCIUM (BEAKER) 8.5 mg/dL 8.5-10.5 (test code = 697) AST (SGOT) (BEAKER) 28 U/L 5-40 (test code = 353) ALT (SGPT) (BEAKER) 27 U/L 5-50 (test code = 347) EGFR (BEAKER) (test 47 mL/min/1.73 ESTIMA CINTHYA GFR IS code = 1092) sq m NOT ACCURATE CREATININE CLEARANCE IN PREDICTING GLOMERULAR FILTRATION RATE . ESTIMATED GFR I S NOT APPLICABLE FOR DIALYSIS PATIEN TS. LIPID [id number] 06:56:00 Test Item Value Reference Range Interpretation Comments TRIGLYCERIDES (BEAKER) (test code = 63 mg/dL 540) CHOLESTEROL (BEAKER) (test code = 180 mg/dL 631) HDL CHOLESTEROL (BEAKER) (test code 55 mg/dL = 976) LDL CHOLESTEROL CALCULATED (BEAKER) 112 mg/dL (test code = 633) Triglyceride Reference Range: Low Risk <150 Borderline 150-199 High Risk 200-499 Very High Risk >=500Cholesterol Reference Range: Low Risk <200 Borderline 200-239 High Risk >240HDL Cholesterol Reference Range: Low Risk >=60 High Risk <40LDL Cholesterol Reference Range: Optimal <100 Near Optimal 100-129 Borderline 130-159 High 160-189 Very High >=[id number] 06:48:00 Test Item Value Reference Range Interpretation Comments MAGNESIUM (BEAKER) (test code = 1.8 mg/dL 1.5-3.0 627) CBC W/PLT COUNT & AUTO [id number] 06:36:00 Test Item Value Reference Range Interpretation Comments WHITE BLOOD CELL COUNT (BEAKER) 13.6 K/ L 4.0-10.0 H (test code = 775) RED BLOOD CELL COUNT (BEAKER) 3.08 M/ L 4.20-5.80 L (test code = 761) HEMOGLOBIN (BEAKER) (test code = 8.6 GM/DL 13.0-16.8 L 410) HEMATOCRIT (BEAKER) (test code = 29.1 % 36.0-50.0 L 411) MEAN CORPUSCULAR VOLUME (BEAKER) 94.5 fL 82.0-99.0 (test code = 753) MEAN CORPUSCULAR HEMOGLOBIN 27.9 pg 27.0-33.0 (BEAKER) (test code = 751) MEAN CORPUSCULAR HEMOGLOBIN CONC 29.6 GM/DL 32.0-36.0 L (BEAKER) (test code = 752) RED CELL DISTRIBUTION WIDTH 16.0 % 12.0-15.0 H (BEAKER) (test code = 412) PLATELET COUNT (BEAKER) (test 258 K/CU MM 150-430 code = 756) MEAN PLATELET VOLUME (BEAKER) 10.6 fL 6.0-11.5 (test code = 754) NUCLEATED RED BLOOD CELLS 0 /100 WBC 0-0 (BEAKER) (test code = 413) NEUTROPHILS RELATIVE PERCENT 81 % (BEAKER) (test code = 429) LYMPHOCYTES RELATIVE PERCENT 6 % (BEAKER) (test code = 430) MONOCYTES RELATIVE PERCENT 9 % (BEAKER) (test code = 431) EOSINOPHILS RELATIVE PERCENT 2 % (BEAKER) (test code = 432) BASOPHILS RELATIVE PERCENT 0 % (BEAKER) (test code = 437) NEUTROPHILS ABSOLUTE COUNT 11.05 K/ L 1.80-8.00 H (BEAKER) (test code = 670) LYMPHOCYTES ABSOLUTE COUNT 0.81 K/ L 1.48-4.50 L (BEAKER) (test code = 414) MONOCYTES ABSOLUTE COUNT (BEAKER) 1.28 K/ L 0.00-1.30 (test code = 415) EOSINOPHILS ABSOLUTE COUNT 0.30 K/ L 0.00-0.50 (BEAKER) (test code = 416) BASOPHILS ABSOLUTE COUNT (BEAKER) 0.03 K/ L 0.00-0.20 (test code = 417) IMMATURE GRANULOCYTES-RELATIVE 1 % 0-0 H PERCENT (BEAKER) (test code = 2801) CBC W Auto Differential panel - [id number] 02:20:00 Test Item Value Reference Range Interpretation Comments white blood count (test code = 10.7 K/uL 4.0-12.3 white blood count) red blood count (test code = red 3.26 M/uL 3.80-5.80 L blood count) Hemoglobin [Mass/volume] in Blood 10.6 g/dL 11.67-17.22 L (test code = 718-7) hematocrit (test code = hematocrit) 31.9 % 35.0-51.0 L Erythrocyte mean corpuscular volume 97.9 fL 78-96 H [Entitic volume] (test code = 13268-6) Erythrocyte mean corpuscular 32.5 pg 26.8-33.4 hemoglobin [Entitic mass] (test code = 52073-4) mean corpuscular HGB conc (test 33.2 g/dL 32.3-36.7 code = mean corpuscular HGB conc) red cell distribution width (test 13.3 % 11.6-15.4 code = red cell distribution width) Platelets [#/volume] in Blood (test 372 K/uL 115-328 H code = 03144-1) Platelet mean volume [Entitic 5.9 fL 8.4-11.8 L volume] in Blood (test code = 37520-0) Neutrophils.band form/100 76.2 % 44.7-82.4 leukocytes in Blood (test code = 18890-7) Lymphocytes/100 leukocytes in Body 9.8 % 10.0-50.0 L fluid (test code = 15918-3) Monocytes/100 leukocytes in Blood 9.5 % 3.9-13.4 by Automated count (test code = 5905-5) Eosinophils/100 leukocytes in Blood 3.5 % 0.0-6.43 by Automated count (test code = 713-8) Basophils/100 leukocytes in Blood 1.1 % 0.0-0.72 H by Automated count (test code = 706-2) [facility] [id number] 02:20:00 NeutrophilsBandLymphocyteAtypical LymphMonocyteEosinophilBasophilMetamyelocytePlatelet EstimatePlatelet MorphologyHypochromasiaDohle BodiesToxic VacuolationWinston Medical CenterBasic metabolic 2000 panel - Serum or [id number] 02:20:00 Test Item Value Reference Range Interpretation Comments glucose (test code = glucose) 111 mg/dL 82-115 Urea nitrogen [Mass/volume] in 13 mg/dL 8-23 Serum or Plasma (test code = 3094-0) Osmolality of Serum or Plasma 271 280-300 L (test code = 2692-2) creatinine (test code = 1.2 mg/dL 0.70-1.20 creatinine) glomerular filtration rate (test 57.96 L code = glomerular filtration rate) Urea nitrogen/Creatinine [Mass 10.8 12-20 L Ratio] in Serum or Plasma (test code = 3097-3) sodium level (test code = sodium 135 mmol/L 135-145 level) Potassium [Moles/volume] in Body 4.2 mmol/L 3.5-5.2 fluid (test code = 2821-7) chloride level (test code = 97 mmol/L 98-108 L chloride level) CO2 (test code = CO2) 28 mmol/L 21-32 anion gap (test code = anion gap) 14.2 mEq/L 12-20 calcium level (test code = calcium 8.6 mg/dL 8.8-10.2 L level) [facility] CenterPT/[id number] 02:20:00 Test Item Value Reference Range Interpretation Comments prothrombin time (test code = 12.3 seconds 10.3-12.3 prothrombin time) INR in Blood by Coagulation 1.17 assay (test code = 95365-4) [facility] Centerpartial thromboplastin [id number] 02:20:00 Test Item Value Reference Range Interpretation Comments INR in Blood by Coagulation 29.2 seconds 22.5-37.0 assay (test code = 20195-5) [facility] CenterXR [facility] 1 [id number] 09:11:11XR CHEST 1 VIEWLOCATION: [id number]: Chest radiograph 02/05/2017INDICATION: post op cabg DISCUSSION: Median sternotomy changes are noted. Right IJ central venous catheterterminates over the SVC.Multilead cardiac device is seen over the leftchest wall.Unchanged left basilar opacity may be due to consolidation and/orpleural effusion.The lungs are otherwise grossly clear.The cardiac silhouette is enlarged, but stable. Osseous structures are stable.IMPRESSION:1. Unchanged left basilar opacity may be due to consolidation and/orpleural effusion.2. Stable, enlarged cardiac silhouette.Basic Metabolic [id number] 06:00:00 Test Item Value Reference Range Interpretation Comments Sodium (test code = 139 mmol/L 135-145 N NA) Potassium (test 3.5 mmol/L 3.5-5.1 N code = K) Chloride (test code 98 mmol/L 98-105 N = CL) Carbon Dioxide 31 mmol/L 22-29 H (test code = CO2) Glucose (test code 109 mg/dL 70-115 N = GLU) Blood Urea Nitrogen 43 mg/dL 8-23 H (test code = BUN) Creatinine (test 1.3 mg/dL 0.7-1.2 H code = CREAT) Calcium (test code 8.2 mg/dL 8.3-10.5 L = CA) BUN/Creatinine 33.1 Ratio (test code = BCRATIO) Anion Gap (test 10 mmol/L 7-16 N code = AGAP) Estimated GFR (test 56 eGFR (es timated code = GFR) mL/min/1.73m2 Glomerular Pola tration Rate) is an est imated value,calculate d from the patient's s eileen creatinine usin g the MDRD equation.I t is NOT the patient 's actual GFR. The eGFR provides a more clinicallyusefu l measure of kidn ey disease than se rum creatinine alone.This calculation [place] sex and race into account, if the informationis provided. If th e race is not provided , and the patient isAfrican-Ameri can, multiply by 1.2 12. If sex is not prov ided, and thepatient is female, multipl y by 0.742. Results for patients <18 ye ars ofage have not been validated by th e MDRD study and shoul d be interpretedwith caution.eGFR Re sult Interpretation: eGFR > or = 60 is in t he Normal RangeeGF R < 60 may mean kidney diseaseeGFR < 1 5 may mean kidney failureRange s recommended by the National Kidney Foundation,http ://nkd ep.nih.gov Magnesium, [id number] 06:00:00 Test Item Value Reference Range Interpretation Comments Magnesium (test code = MG) 2.2 mg/dL 1.7-2.5 N CBC with [id number] 05:55:00 Test Item Value Reference Range Interpretation Comments WBC (test code = WBC) 15.3 K/cumm 4.4-10.5 H RBC (test code = RBC) 2.98 M/cumm 4.10-5.70 L Hemoglobin (test code = HGB) 9.2 gm/dL 13.4-17.4 L Hematocrit (test code = HCT) 28.1 % 38.7-52.0 L MCV (test code = MCV) 94.3 fL 80-100 N MCH (test code = MCH) 30.8 pg 27.0-32.5 N MCHC (test code = MCHC) 32.7 g/dL 32.0-37.5 N RDW (test code = RDW) 15.2 % 11.5-14.5 H Platelet Count (test code = 272 K/cumm 140-440 N PLTCT) MPV (test code = MPV) 7.2 fL Diff Method (test code = DIFFM) Auto Neutrophil (test code = NEUT) 80.4 % 36-70 H Lymphocyte (test code = LYMPH) 9.3 % 12-44 L Monocyte (test code = MONO) 9.0 % 0-11 N Eosinophil (test code = EOS) 1.1 % 0-7 N Basophil (test code = BASO) 0.2 % 0-2 N Neutro Abs (test code = ANEUT) 12.3 K/cumm 1.6-7.4 H Lymph Abs (test code = ALYMPH) 1.4 K/cumm 0.5-4.6 N Rabun Abs (test code = AMONO) 1.4 K/cumm 0.0-1.2 H Eos Abs (test code = AEOS) 0.17 K/cumm 0.00-0.74 N Baso Abs (test code = ABASO) 0.0 K/cumm 0.00-0.21 N POC Glucose, [id number] 20:45:00 Test Item Value Reference Range Interpretation Comments POC Glucose (test 244 mg/dL 70-115 H Notify RN or MDIf you code = POCGLUC) consider you r patient critically ill, the Kim Accu-Chek InformII metershould not be used for Glucose determinations. Draw a venous Glucose and send to the Main Lab for Analysis. POC Glucose, [id number] 11:44:00 Test Item Value Reference Range Interpretation Comments POC Glucose (test 116 mg/dL 70-115 H If you con senior linux systems administrator your code = POCGLUC) patient crit ically ill, the Kim Accu- Chek InformII meters hould not be used for Glu cose determinations. Draw a venous Glucose and send to the Main Lab for Analysis. XR CHEST 1 [id number] 09:52:45XR CHEST 1 VIEWLOCATION: [id number]: Chest CT 02/04/2017, chest radiograph 02/03/2017INDICATION: post op cabg DISCUSSION: Median sternotomy changes are noted. Right IJ central venous catheterterminates over the SVC. Multilead cardiac device is seen over the leftchest wall.Left basilar opacity may be due to consolidation and/or pleuraleffusion.The lungs are otherwise grossly clear.The cardiac silhouette is enlarged, but stable. Osseous structures are stable.IMPRESSION:1. Left basilar opacitymay be due to consolidation and/or pleuraleffusion.2. Stable, enlarged cardiac silhouette.Heparin Induced Platelet [id number] 08:01:00 Test Item Value Reference Range Interpretation Comments Heparin Induced Platelet Ab (test 0.095 OD 0.000-0.400 N code = 511624) POC Glucose, [id number] 07:45:00 Test Item Value Reference Range Interpretation Comments POC Glucose (test 153 mg/dL 70-115 H If you con senior linux systems administrator your code = POCGLUC) patient crit ically ill, the Kmi Accu- Chek InformII meters hould not be used for Glu cose determinations. Draw a venous Glucose and send to the Main Lab for Analysis. Magnesium, [id number] 05:21:00 Test Item Value Reference Range Interpretation Comments Magnesium (test code = MG) 2.3 mg/dL 1.7-2.5 N CBC with [id number] 05:11:00 Test Item Value Reference Range Interpretation Comments WBC (test code = WBC) 16.9 K/cumm 4.4-10.5 H RBC (test code = RBC) 3.04 M/cumm 4.10-5.70 L Hemoglobin (test code = HGB) 9.5 gm/dL 13.4-17.4 L Hematocrit (test code = HCT) 28.3 % 38.7-52.0 L MCV (test code = MCV) 93.2 fL 80-100 N MCH (test code = MCH) 31.3 pg 27.0-32.5 N MCHC (test code = MCHC) 33.6 g/dL 32.0-37.5 N RDW (test code = RDW) 15.1 % 11.5-14.5 H Platelet Count (test code = 213 K/cumm 140-440 N PLTCT) MPV (test code = MPV) 8.3 fL Diff Method (test code = DIFFM) Auto Neutrophil (test code = NEUT) 86.2 % 36-70 H Lymphocyte (test code = LYMPH) 7.1 % 12-44 L Monocyte (test code = MONO) 6.3 % 0-11 N Eosinophil (test code = EOS) 0.3 % 0-7 N Basophil (test code = BASO) 0.1 % 0-2 N Neutro Abs (test code = ANEUT) 14.6 K/cumm 1.6-7.4 H Lymph Abs (test code = ALYMPH) 1.2 K/cumm 0.5-4.6 N Rabun Abs (test code = AMONO) 1.1 K/cumm 0.0-1.2 N Eos Abs (test code = AEOS) 0.05 K/cumm 0.00-0.74 N Baso Abs (test code = ABASO) 0.0 K/cumm 0.00-0.21 N POC Glucose, [id number] 21:11:00 Test Item Value Reference Range Interpretation Comments POC Glucose (test 237 mg/dL 70-115 H If you con senior linux systems administrator your code = POCGLUC) patient formerly [facility], the Kim Accu- Chek InformII meters hould not be used for Glu cose determinations. Draw a venous Glucose and send to the Main Lab for Analysis. POC Glucose, [id number] 15:44:00 Test Item Value Reference Range Interpretation Comments POC Glucose (test 177 mg/dL 70-115 H If you con senior linux systems administrator your code = POCGLUC) [facility], the Kim Accu- Chek InformII meters hould not be used for Glu cose determinations. Draw a venous Glucose and send to the Main Lab for Analysis. POC Glucose, [id number] 11:43:00 Test Item Value Reference Range Interpretation Comments POC Glucose (test 126 mg/dL 70-115 H If you con senior linux systems administrator your code = POCGLUC) patient crit ically ill, the Kim Accu- Chek InformII meters hould not be used for Glu cose determinations. Draw a venous Glucose and send to the Main Lab for Analysis. Occult [id number] 10:42:00 Test Item Value Reference Range Interpretation Comments Occ Bld (test code = HSOB) Negative Negative N CT CHEST W/O [id number] 09:24:36CT CHEST W/O CONTRASTLOCATION CODE: R16 HISTORY: pneumonia COMPARISON: Chest radiograph 02/03/2017TECHNIQUE: CT of the chest was performed without intravenous contrast. One or more of the following dose reduction techniques were used:Automated exposure control, adjustment of the mA and/or kV according topatient size, and/or utilization of iterative reconstruction technique.DISCUSSION:Lungs andairways: A small amount of fluid is seen in the lower trachea and proximal rightmainstem bronchus.The central airways are otherwise clear. Small bilateral pleural effusions are associated with bibasilardependent consolidation, left greater than right.Focal groundglass opacity is seen in the right upper and right middlelobes, near the confluence of the minor and major fissure.No pneumothorax is seen.No suspicious pulmonary nodules are seen.Heart and mediastinum: Multilead cardiac device is seen in the left chest wallMedian sternotomy/CABG changes are noted.Mediastinal drain terminates along the right heart. Left thoracostomy tube terminates along the anterior left costophrenicangle.Trace scatteredpneumomediastinum is present.Approximately 3.9 cm soft tissue nodular density in the anteriorsuperior mediastinum may be a small seroma or hematoma.The heart is mildly enlarged.A trace pericardial effusion is seen.Mitral, aortic, and coronary artery calcifications are present.No mediastinal or hilar lymphadenopathy is seen.Bones/soft tissues: There are mild to moderate degenerative changesthroughout the spine. There are advanced degenerative changes in theleft shoulder. Gynecomastia is present.Upperabdomen: There is questionable cholelithiasis. Mild leftperinephric fat stranding is nonspecific. IMPRESSION: 1. Median sternotomy/CABG changes. Mediastinal drain and leftthoracostomy tube in place asdescribed above. Trace scatteredpneumomediastinum is present. Approximately 3.9 cm soft tissue nodulardensity in the anterior superior mediastinum may be a small seroma orhematoma.2. Small bilateral pleural effusions with bibasilar dependentconsolidations, left greater than right.3. Nonspecific focal groundglass opacity in the right upper and rightmiddle lobes, near the confluence of the minor andmajor fissure.4. Mild cardiomegaly with trace pericardial effusion.5. Small amount of fluid in thelower trachea and proximal rightmainstem bronchus may be due to retained secretions or aspiration. POC Glucose, [id number] 07:23:00 Test Item Value Reference Range Interpretation Comments POC Glucose (test 94 mg/dL 70-115 N If you con senior linux systems administrator your code = POCGLUC) patient crit ically ill, the Kim Accu- Chek InformII meters hould not be used for Glu cose determinations. Draw a venous Glucose and send to the Main Lab for Analysis. CBC with [id number] 05:26:00 Test Item Value Reference Range Interpretation Comments WBC (test code = 9.7 K/cumm 4.4-10.5 N WBC) RBC (test code = 3.00 M/cumm 4.10-5.70 L RBC) Hemoglobin (test 9.2 gm/dL 13.4-17.4 L code = HGB) Hematocrit (test 28.4 % 38.7-52.0 L code = HCT) MCV (test code = 94.5 fL 80-100 N MCV) MCH (test code = 30.8 pg 27.0-32.5 N MCH) MCHC (test code = 32.6 g/dL 32.0-37.5 N MCHC) RDW (test code = 15.1 % 11.5-14.5 H RDW) Platelet Count 158 K/cumm 140-440 N READ BACK LAB (test code = PLTCT) VALUESVE RIFIED BY REPEAT TESTINGc alled to Saulo Sanches RN a t 4508 02/04/2017. No info was given. DD MPV (test code = 7.7 fL MPV) Diff Method (test Auto code = DIFFM) Neutrophil (test 74.6 % 36-70 H code = NEUT) Lymphocyte (test 13.0 % 12-44 N code = LYMPH) Monocyte (test code 7.6 % 0-11 N = MONO) Eosinophil (test 4.3 % 0-7 N code = EOS) Basophil (test code 0.4 % 0-2 N = BASO) Neutro Abs (test 7.2 K/cumm 1.6-7.4 N code = ANEUT) Lymph Abs (test 1.3 K/cumm 0.5-4.6 N code = ALYMPH) Rabun Abs (test code 0.7 K/cumm 0.0-1.2 N = AMONO) Eos Abs (test code 0.42 K/cumm 0.00-0.74 N = AEOS) Baso Abs (test code 0.0 K/cumm 0.00-0.21 N = ABASO) Renal [id number] 04:27:00 Test Item Value Reference Range Interpretation Comments Sodium (test code = 141 mmol/L 135-145 N NA) Potassium (test 3.7 mmol/L 3.5-5.1 N code = K) Chloride (test code 100 mmol/L 98-105 N = CL) Carbon Dioxide 28 mmol/L 22-29 N (test code = CO2) Glucose (test code 100 mg/dL 70-115 N = GLU) Blood Urea Nitrogen 31 mg/dL 8-23 H (test code = BUN) Creatinine (test 1.4 mg/dL 0.7-1.2 H code = CREAT) Calcium (test code 7.9 mg/dL 8.3-10.5 L = CA) Albumin (test code 4.0 g/dL 3.5-5.2 N = ALB) Phosphorus (test 3.1 mg/dL 2.70-4.50 N code = PO4) BUN/Creatinine 22.1 Ratio (test code = BCRATIO) Anion Gap (test 13 mmol/L 7-16 N code = AGAP) Estimated GFR (test 52 eGFR (es timated code = GFR) mL/min/1.73m2 Glomerular Pola tration Rate) is an est imated value,calculate d from the patient's s eileen creatinine usin g the MDRD equation.I t is NOT the patient 's actual GFR. The eGFR provides a more clinicallyusefu l measure of kidn ey disease than se rum creatinine alone.This calculation [place] sex and race into account, if the informationis provided. If th e race is not provided , and the patient Lety can, multiply by 1.2 12. If sex is not prov ided, and thepatient is female, multipl y by 0.742. Results for patients <18 ye ars ofage have not been validated by th e MDRD study and showest d be interpretedwith caution.eGFR Re sult Interpretation: eGFR > or = 60 is in t he Normal RangeeGF R < 60 may mean kidney diseaseeGFR < 1 5 may mean kidney failureRange s recommended by the National Kidney Foundation,http ://nkd ep.nih.gov Magnesium, [id number] 04:21:00 Test Item Value Reference Range Interpretation Comments Magnesium (test code = MG) 2.3 mg/dL 1.7-2.5 N POC Glucose, [id number] 20:47:00 Test Item Value Reference Range Interpretation Comments POC Glucose (test 102 mg/dL 70-115 N If you con senior linux systems administrator your code = POCGLUC) patient crit ically ill, the Kim Accu- Chek InformII meters hould not be used for Glu cose determinations. Draw a venous Glucose and send to the Main Lab for Analysis. POC Glucose, [id number] 16:34:00 Test Item Value Reference Range Interpretation Comments POC Glucose (test 103 mg/dL 70-115 N If you con senior linux systems administrator your code = POCGLUC) patient crit ically ill, the Kim Accu- Chek InformII meters hould not be used for Glu cose determinations. Draw a venous Glucose and send to the Main Lab for Analysis. [id number] 13:21:00 Test Item Value Reference Range Interpretation Comments Potassium (test code = K) 3.9 mmol/L 3.5-5.1 N POC Glucose, [id number] 12:54:00 Test Item Value Reference Range Interpretation Comments POC Glucose (test 118 mg/dL 70-115 H If you con senior linux systems administrator your code = POCGLUC) patient crit ically ill, the Kim Accu- Chek InformII meters hould not be used for Glu cose determinations. Draw a venous Glucose and send to the Main Lab for Analysis. XR CHEST 1 [id number] 08:27:42EXAM: Portable AP chest x-rayLOCATION: R16 INDICATION: post op cabg COMPARISON: 02/02/2017FINDINGS:Removal of a right internal jugular approach [place] catheter. Aright internal jugular central venous catheter and left chest tube isunchanged.There is stable enlargement of the cardiac silhouette with poststernotomy changes. Redemonstrated is a left basilar opacity. There isalso a small right pleural effusion.IMPRESSION:Removal of a right internal jugular approach [place] catheter. Redemonstrated is a left basilar opacity. This may represent a smallpleural effusion with overlying atelectasis/consolidation. There is alsoa trace right pleural effusion.POC Glucose, [id number] 07:03:00 Test Item Value Reference Range Interpretation Comments POC Glucose (test 109 mg/dL 70-115 N If you con senior linux systems administrator your code = POCGLUC) patient crit ically ill, the Kim Accu- Chek InformII meters hould not be used for Glu cose determinations. Draw a venous Glucose and send to the Main Lab for Analysis. Microalb/Creat Ratio, Randm [id number] 03:55:00 Test Item Value Reference Range Interpretation Comments Creatinine, Urine Rm (test code = 19.9 mg/dL 10.0-300.0 N CREURRM) Microalbumin, Urine (test code = <12 mg/L 0-23 N MAUR) Microalb/Creat Ratio (test code = 55 mg/G 0-20 N MACRRUR) Free T4 (Free Thyroxine)2017-02-03 02:06:00 Test Item Value Reference Range Interpretation Comments T4, Free (test code = FT4) 1.39 ng/dL 0.930-1.700 N PTH, [id number] 02:06:00 Test Item Value Reference Range Interpretation Comments Parathyroid Hormone, Intact 208.20 pg/mL 15.00-65.00 H (test code = PTH INTACT) Thyroid Stimulating Hormone (TSH)2017-02-03 02:06:00 Test Item Value Reference Range Interpretation Comments TSH (test code = TSH) 2.86 mIU/mL 0.270-4.200 N Magnesium, [id number] 02:06:00 Test Item Value Reference Range Interpretation Comments Magnesium (test code = MG) 2.3 mg/dL 1.7-2.5 N T3, [id number] 02:06:00 Test Item Value Reference Range Interpretation Comments T3, Total (test code = TT3) 59.2 ng/dL 80.0-200.0 L Basic Metabolic [id number] 02:06:00 Test Item Value Reference Range Interpretation Comments Sodium (test code = 137 mmol/L 135-145 N NA) Potassium (test 3.3 mmol/L 3.5-5.1 L code = K) Chloride (test code 100 mmol/L 98-105 N = CL) Carbon Dioxide 24 mmol/L 22-29 N (test code = CO2) Glucose (test code 111 mg/dL 70-115 N = GLU) Blood Urea Nitrogen 33 mg/dL 8-23 H (test code = BUN) Creatinine (test 1.5 mg/dL 0.7-1.2 H code = CREAT) Calcium (test code 7.4 mg/dL 8.3-10.5 L = CA) BUN/Creatinine 22.0 Ratio (test code = BCRATIO) Anion Gap (test 13 mmol/L 7-16 N code = AGAP) Estimated GFR (test 48 eGFR (es timated code = GFR) mL/min/1.73m2 Glomerular Pola tration Rate) is an est imated value,calculate d from the patient's s eileen creatinine usin g the MDRD equation.I t is NOT the patient 's actual GFR. The eGFR provides a more clinicallyusefu l measure of kidn ey disease than se rum creatinine alone.This calculation [place] sex and race into account, if the informationis provided. If th e race is not provided , and the patient isAfrican-Ameri can, multiply by 1.2 12. If sex is not prov ided, and thepatient is female, multipl y by 0.742. Results for patients <18 ye ars ofage have not been validated by th e MDRD study and michael kaplan be interpretedwith caution.eGFR Re sult Interpretation: eGFR > or = 60 is in t he Normal RangeeGF R < 60 may mean kidney diseaseeGFR < 1 5 may mean kidney failureRange s recommended by the National Kidney Foundation,http ://nkd ep.nih.gov Renal [id number] 02:06:00 Test Item Value Reference Range Interpretation Comments Sodium (test code = 139 mmol/L 135-145 N NA) Potassium (test 3.3 mmol/L 3.5-5.1 L code = K) Chloride (test code 102 mmol/L 98-105 N = CL) Carbon Dioxide 24 mmol/L 22-29 N (test code = CO2) Glucose (test code 113 mg/dL 70-115 N = GLU) Blood Urea Nitrogen 33 mg/dL 8-23 H (test code = BUN) Creatinine (test 1.4 mg/dL 0.7-1.2 H code = CREAT) Calcium (test code 7.6 mg/dL 8.3-10.5 L = CA) Albumin (test code 4.0 g/dL 3.5-5.2 N = ALB) Phosphorus (test 2.9 mg/dL 2.70-4.50 N code = PO4) BUN/Creatinine 23.6 Ratio (test code = BCRATIO) Anion Gap (test 13 mmol/L 7-16 N code = AGAP) Estimated GFR (test 52 eGFR (es timated code = GFR) mL/min/1.73m2 Glomerular Pola tration Rate) is an est imated value,calculate d from the patient's s eileen creatinine usin g the MDRD equation.I t is NOT the patient 's actual GFR. The eGFR provides a more clinicallyusefu l measure of kidn ey disease than se rum creatinine alone.This calculation [place] sex and race into account, if the informationis provided. If th e race is not provided , and the patient isAfrican-Ameri can, multiply by 1.2 12. If sex is not prov ided, and thepatient is female, multipl y by 0.742. Results for patients <18 ye ars ofage have not been validated by th e MDRD study and shoul d be interpretedwith caution.eGFR Re sult Interpretation: eGFR > or = 60 is in t he Normal RangeeGF R < 60 may mean kidney diseaseeGFR < 1 5 may mean kidney failureRange s recommended by the National Kidney Foundation,http ://nkd ep.nih.gov CBC with [id number] 01:29:00 Test Item Value Reference Range Interpretation Comments WBC (test code = WBC) 8.7 K/cumm 4.4-10.5 N RBC (test code = RBC) 2.64 M/cumm 4.10-5.70 L Hemoglobin (test code = HGB) 8.2 gm/dL 13.4-17.4 L Hematocrit (test code = HCT) 24.8 % 38.7-52.0 L MCV (test code = MCV) 93.7 fL 80-100 N MCH (test code = MCH) 31.2 pg 27.0-32.5 N MCHC (test code = MCHC) 33.3 g/dL 32.0-37.5 N RDW (test code = RDW) 15.0 % 11.5-14.5 H Platelet Count (test code = 86 K/cumm 140-440 L PLTCT) MPV (test code = MPV) 8.4 fL Diff Method (test code = DIFFM) Auto Neutrophil (test code = NEUT) 80.5 % 36-70 H Lymphocyte (test code = LYMPH) 10.5 % 12-44 L Monocyte (test code = MONO) 6.9 % 0-11 N Eosinophil (test code = EOS) 1.9 % 0-7 N Basophil (test code = BASO) 0.1 % 0-2 N Neutro Abs (test code = ANEUT) 7.0 K/cumm 1.6-7.4 N Lymph Abs (test code = ALYMPH) 0.9 K/cumm 0.5-4.6 N Rabun Abs (test code = AMONO) 0.6 K/cumm 0.0-1.2 N Eos Abs (test code = AEOS) 0.17 K/cumm 0.00-0.74 N Baso Abs (test code = ABASO) 0.0 K/cumm 0.00-0.21 N Basic Metabolic [id number] 19:08:00 Test Item Value Reference Range Interpretation Comments Sodium (test code = 135 mmol/L 135-145 N NA) Potassium (test 3.9 mmol/L 3.5-5.1 N code = K) Chloride (test code 99 mmol/L 98-105 N = CL) Carbon Dioxide 21 mmol/L 22-29 L (test code = CO2) Glucose (test code 109 mg/dL 70-115 N = GLU) Blood Urea Nitrogen 34 mg/dL 8-23 H (test code = BUN) Creatinine (test 1.5 mg/dL 0.7-1.2 H code = CREAT) Calcium (test code 7.6 mg/dL 8.3-10.5 L = CA) BUN/Creatinine 22.7 Ratio (test code = BCRATIO) Anion Gap (test 15 mmol/L 7-16 N code = AGAP) Estimated GFR (test 48 eGFR (es timated code = GFR) mL/min/1.73m2 Glomerular Pola tration Rate) is an est imated value,calculate d from the patient's s eileen creatinine usin g the MDRD equation.I t is NOT the patient 's actual GFR. The eGFR provides a more clinicallyusefu l measure of kidn ey disease than se rum creatinine alone.This calculation [place] sex and race into account, if the informationis provided. If th e race is not provided , and the patient isAfrican-Ameri can, multiply by 1.2 12. If sex is not prov ided, and thepatient is female, multipl y by 0.742. Results for patients <18 ye ars ofage have not been validated by th e MDRD study and shoul d be interpretedwith caution.eGFR Re sult Interpretation: eGFR > or = 60 is in t he Normal RangeeGF R < 60 may mean kidney diseaseeGFR < 1 5 may mean kidney failureRange s recommended by the National Kidney Foundation,http ://nkd ep.nih.gov POC Glucose, [id number] 17:30:00 Test Item Value Reference Range Interpretation Comments POC Glucose (test 113 mg/dL 70-115 N If you con senior linux systems administrator your code = POCGLUC) patient crit ically ill, the Kim Accu- Chek InformII meters hould not be used for Glu cose determinations. Draw a venous Glucose and send to the Main Lab for Analysis. Basic Metabolic [id number] 13:44:00 Test Item Value Reference Range Interpretation Comments Sodium (test code = 134 mmol/L 135-145 L NA) Potassium (test 3.6 mmol/L 3.5-5.1 N code = K) Chloride (test code 99 mmol/L 98-105 N = CL) Carbon Dioxide 22 mmol/L 22-29 N (test code = CO2) Glucose (test code 107 mg/dL 70-115 N = GLU) Blood Urea Nitrogen 33 mg/dL 8-23 H (test code = BUN) Creatinine (test 1.6 mg/dL 0.7-1.2 H code = CREAT) Calcium (test code 7.5 mg/dL 8.3-10.5 L = CA) BUN/Creatinine 20.6 Ratio (test code = BCRATIO) Anion Gap (test 13 mmol/L 7-16 N code = AGAP) Estimated GFR (test 44 eGFR (es timated code = GFR) mL/min/1.73m2 Glomerular Pola tration Rate) is an est imated value,calculate d from the patient's s eileen creatinine usin g the MDRD equation.I t is NOT the patient 's actual GFR. The eGFR provides a more clinicallyusefu l measure of kidn ey disease than se rum creatinine alone.This calculation [place] sex and race into account, if the informationis provided. If th e race is not provided , and the patient isAfrican-Ameri can, multiply by 1.2 12. If sex is not prov ided, and thepatient is female, multipl y by 0.742. Results for patients <18 ye ars ofage have not been validated by th e MDRD study and shoul d be interpretedwith caution.eGFR Re sult Interpretation: eGFR > or = 60 is in t he Normal RangeeGF R < 60 may mean kidney diseaseeGFR < 1 5 may mean kidney failureRange s recommended by the National Kidney Foundation,http ://nkd ep.nih.gov POC Glucose, [id number] 13:12:00 Test Item Value Reference Range Interpretation Comments POC Glucose (test 117 mg/dL 70-115 H If you con senior linux systems administrator your code = POCGLUC) patient crit ically ill, the Kim Accu- Chek InformII meters hould not be used for Glu cose determinations. Draw a venous Glucose and send to the Main Lab for Analysis. Basic Metabolic [id number] 10:01:00 Test Item Value Reference Range Interpretation Comments Sodium (test code = 133 mmol/L 135-145 L NA) Potassium (test 4.2 mmol/L 3.5-5.1 N code = K) Chloride (test code 101 mmol/L 98-105 N = CL) Carbon Dioxide 19 mmol/L 22-29 L (test code = CO2) Glucose (test code 122 mg/dL 70-115 H = GLU) Blood Urea Nitrogen 33 mg/dL 8-23 H (test code = BUN) Creatinine (test 1.6 mg/dL 0.7-1.2 H code = CREAT) Calcium (test code 7.4 mg/dL 8.3-10.5 L = CA) BUN/Creatinine 20.6 Ratio (test code = BCRATIO) Anion Gap (test 13 mmol/L 7-16 N code = AGAP) Estimated GFR (test 44 eGFR (es timated code = GFR) mL/min/1.73m2 Glomerular Pola tration Rate) is an est imated value,calculate d from the patient's s eileen creatinine usin g the MDRD equation.I t is NOT the patient 's actual GFR. The eGFR provides a more clinicallyusefu l measure of kidn ey disease than se rum creatinine alone.This calculation [place] sex and race into account, if the informationis provided. If th e race is not provided , and the patient isAfrican-Ameri can, multiply by 1.2 12. If sex is not prov ided, and thepatient is female, multipl y by 0.742. Results for patients <18 ye ars ofage have not been validated by th e MDRD study and shoul d be interpretedwith caution.eGFR Re sult Interpretation: eGFR > or = 60 is in t he Normal RangeeGF R < 60 may mean kidney diseaseeGFR < 1 5 may mean kidney failureRange s recommended by the National Kidney Foundation,http ://nkd ep.nih.gov POC Glucose, [id number] 09:15:00 Test Item Value Reference Range Interpretation Comments POC Glucose (test 129 mg/dL 70-115 H If you con senior linux systems administrator your code = POCGLUC) patient crit ically ill, the Kim Accu- Chek InformII meters hould not be used for Glu cose determinations. Draw a venous Glucose and send to the Main Lab for Analysis. Magnesium, [id number] 06:23:00 Test Item Value Reference Range Interpretation Comments Magnesium (test code = MG) 2.3 mg/dL 1.7-2.5 N Basic Metabolic [id number] 06:23:00 Test Item Value Reference Range Interpretation Comments Sodium (test code = 133 mmol/L 135-145 L NA) Potassium (test 3.6 mmol/L 3.5-5.1 N code = K) Chloride (test code 98 mmol/L 98-105 N = CL) Carbon Dioxide 20 mmol/L 22-29 L (test code = CO2) Glucose (test code 119 mg/dL 70-115 H = GLU) Blood Urea Nitrogen 32 mg/dL 8-23 H (test code = BUN) Creatinine (test 1.7 mg/dL 0.7-1.2 H code = CREAT) Calcium (test code 7.3 mg/dL 8.3-10.5 L = CA) BUN/Creatinine 18.8 Ratio (test code = BCRATIO) Anion Gap (test 15 mmol/L 7-16 N code = AGAP) Estimated GFR (test 41 eGFR (es timated code = GFR) mL/min/1.73m2 Glomerular Pola tration Rate) is an est imated value,calculate d from the patient's s eileen creatinine usin g the MDRD equation.I t is NOT the patient 's actual GFR. The eGFR provides a more clinicallyusefu l measure of kidn ey disease than se rum creatinine alone.This calculation [place] sex and race into account, if the informationis provided. If th e race is not provided , and the patient isAfrican-Ameri can, multiply by 1.2 12. If sex is not prov ided, and thepatient is female, multipl y by 0.742. Results for patients <18 ye ars ofage have not been validated by th e MDRD study and shoul d be interpretedwith caution.eGFR Re sult Interpretation: eGFR > or = 60 is in t he Normal RangeeGF R < 60 may mean kidney diseaseeGFR < 1 5 may mean kidney failureRange s recommended by the National Kidney Foundation,http ://nkd ep.nih.gov XR CHEST 1 [id number] 06:01:29Exam: Chest portable erectLocation: D 4History: Status post CABGComparison: 01/31/2017Findings:No change has occurred in the aeration of the lungs. Postoperativechanges of CABG are seen. The [place]-Ganzcatheter remains in place. Apacemaker is noted. The mediastinal silhouette is unremarkable.Impression:Stable chest.RBC, Crossmatch 06:00:00 Test Item Value Reference Range Interpretation Comments Product 1 Code (test code = E0336 PRODCODE1) Unit 1 ID (test code = [id number] UNITID1) Unit 1 ABO (test code = A UNITABO1) Unit 1 Rh (test code = POS UNITRH1) Unit 1 Interp (test code = Compatible UNITINTERP1) Unit 1 Status (test code = PT UNITSTAT1) RBC, Crossmatch 06:00:00 Test Item Value Reference Range Interpretation Comments Product 1 Code (test code = E4532 PRODCODE1) Unit 1 ID (test code = [id number] UNITID1) Unit 1 ABO (test code = A UNITABO1) Unit 1 Rh (test code = POS UNITRH1) Unit 1 Interp (test code = Compatible UNITINTERP1) Unit 1 Status (test code = PT UNITSTAT1) Basic Metabolic [id number] 03:10:00 Test Item Value Reference Range Interpretation Comments Sodium (test code = 134 mmol/L 135-145 L NA) Potassium (test 4.1 mmol/L 3.5-5.1 N code = K) Chloride (test code 101 mmol/L 98-105 N = CL) Carbon Dioxide 21 mmol/L 22-29 L (test code = CO2) Glucose (test code 115 mg/dL 70-115 N = GLU) Blood Urea Nitrogen 31 mg/dL 8-23 H (test code = BUN) Creatinine (test 1.6 mg/dL 0.7-1.2 H code = CREAT) Calcium (test code 7.3 mg/dL 8.3-10.5 L = CA) BUN/Creatinine 19.4 Ratio (test code = BCRATIO) Anion Gap (test 12 mmol/L 7-16 N code = AGAP) Estimated GFR (test 44 eGFR (es timated code = GFR) mL/min/1.73m2 Glomerular Pola tration Rate) is an est imated value,calculate d from the patient's s eileen creatinine usin g the MDRD equation.I t is NOT the patient 's actual GFR. The eGFR provides a more clinicallyusefu l measure of kidn ey disease than se rum creatinine alone.This calculation [place] sex and race into account, if the informationis provided. If e race is not provided , and the patient isAfrican-Ameri can, multiply by 1.2 12. If sex is not prov ided, and thepatient is female, multipl y by 0.742. Results for patients <18 ye ars ofage have not been validated by e MDRD study and michael d be interpretedwith caution.eGFR Re sult Interpretation: eGFR > or = 60 is in t he Normal RangeeGF R < 60 may mean kidney diseaseeGFR < 1 5 may mean kidney failureRange s recommended by the National Kidney Foundation,http ://nkd ep.nih.gov Magnesium, [id number] 03:10:00 Test Item Value Reference Range Interpretation Comments Magnesium (test code = MG) 2.3 mg/dL 1.7-2.5 N CBC with [id number] 02:28:00 Test Item Value Reference Range Interpretation Comments WBC (test code = WBC) 8.4 K/cumm 4.4-10.5 N RBC (test code = RBC) 2.60 M/cumm 4.10-5.70 L Hemoglobin (test code = HGB) 8.2 gm/dL 13.4-17.4 L Hematocrit (test code = HCT) 24.6 % 38.7-52.0 L MCV (test code = MCV) 94.6 fL 80-100 N MCH (test code = MCH) 31.5 pg 27.0-32.5 N MCHC (test code = MCHC) 33.3 g/dL 32.0-37.5 N RDW (test code = RDW) 15.6 % 11.5-14.5 H Platelet Count (test code = 64 K/cumm 140-440 L PLTCT) MPV (test code = MPV) 8.2 fL Diff Method (test code = DIFFM) Auto Neutrophil (test code = NEUT) 80.1 % 36-70 H Lymphocyte (test code = LYMPH) 12.2 % 12-44 N Monocyte (test code = MONO) 5.9 % 0-11 N Eosinophil (test code = EOS) 1.6 % 0-7 N Basophil (test code = BASO) 0.2 % 0-2 N Neutro Abs (test code = ANEUT) 6.7 K/cumm 1.6-7.4 N Lymph Abs (test code = ALYMPH) 1.0 K/cumm 0.5-4.6 N Rabun Abs (test code = AMONO) 0.5 K/cumm 0.0-1.2 N Eos Abs (test code = AEOS) 0.13 K/cumm 0.00-0.74 N Baso Abs (test code = ABASO) 0.0 K/cumm 0.00-0.21 N Basic Metabolic [id number] 21:41:00 Test Item Value Reference Range Interpretation Comments Sodium (test code = 134 mmol/L 135-145 L NA) Potassium (test 3.9 mmol/L 3.5-5.1 N code = K) Chloride (test code 100 mmol/L 98-105 N = CL) Carbon Dioxide 19 mmol/L 22-29 L (test code = CO2) Glucose (test code 152 mg/dL 70-115 H = GLU) Blood Urea Nitrogen 30 mg/dL 8-23 H (test code = BUN) Creatinine (test 1.6 mg/dL 0.7-1.2 H code = CREAT) Calcium (test code 7.3 mg/dL 8.3-10.5 L = CA) BUN/Creatinine 18.8 Ratio (test code = BCRATIO) Anion Gap (test 15 mmol/L 7-16 N code = AGAP) Estimated GFR (test 44 eGFR (es timated code = GFR) mL/min/1.73m2 Glomerular Pola tration Rate) is an est imated value,calculate d from the patient's s eileen creatinine usin g the MDRD equation.I t is NOT the patient 's actual GFR. The eGFR provides a more clinicallyusefu l measure of kidn ey disease than se rum creatinine alone.This calculation [place] sex and race into account, if the informationis provided. If th e race is not provided , and the patient isAfrican-Ameri can, multiply by 1.2 12. If sex is not prov ided, and thepatient is female, multipl y by 0.742. Results for patients <18 ye ars ofage have not been validated by th bennie MDRD study and michael d be interpretedwith caution.eGFR Re sult Interpretation: eGFR > or = 60 is in t he Normal RangeeGF R < 60 may mean kidney diseaseeGFR < 1 5 may mean kidney failureRange s recommended by the National Kidney Foundation,http ://nkd ep.nih.gov [id number] 21:41:00 Test Item Value Reference Range Interpretation Comments Phosphorus (test code = PO4) 2.3 mg/dL 2.70-4.50 L Magnesium, [id number] 21:41:00 Test Item Value Reference Range Interpretation Comments Magnesium (test code = MG) 2.3 mg/dL 1.7-2.5 N POC Glucose, [id number] 20:54:00 Test Item Value Reference Range Interpretation Comments POC Glucose (test 153 mg/dL 70-115 H If you con senior linux systems administrator your code = POCGLUC) patient crit ically ill, the Kim Accu- Chek InformII meters hould not be used for Glu cose determinations. Draw a venous Glucose and send to the Main Lab for Analysis. Basic Metabolic [id number] 18:38:00 Test Item Value Reference Range Interpretation Comments Sodium (test code = 131 mmol/L 135-145 L NA) Potassium (test 4.0 mmol/L 3.5-5.1 N code = K) Chloride (test code 98 mmol/L 98-105 N = CL) Carbon Dioxide 18 mmol/L 22-29 L (test code = CO2) Glucose (test code 148 mg/dL 70-115 H = GLU) Blood Urea Nitrogen 29 mg/dL 8-23 H (test code = BUN) Creatinine (test 1.7 mg/dL 0.7-1.2 H code = CREAT) Calcium (test code 7.6 mg/dL 8.3-10.5 L = CA) BUN/Creatinine 17.1 Ratio (test code = BCRATIO) Anion Gap (test 15 mmol/L 7-16 N code = AGAP) Estimated GFR (test 41 eGFR (es timated code = GFR) mL/min/1.73m2 Glomerular Pola tration Rate) is an est imated value,calculate d from the patient's s eileen creatinine usin g the MDRD equation.I t is NOT the patient 's actual GFR. The eGFR provides a more clinicallyusefu l measure of kidn ey disease than se rum creatinine alone.This calculation [place] sex and race into account, if the informationis provided. If th e race is not provided , and the patient isAfrican-Ameri can, multiply by 1.2 12. If sex is not prov ided, and thepatient is female, multipl y by 0.742. Results for patients <18 ye ars ofage have not been validated by e MDRD study and michael d be interpretedwith caution.eGFR Re sult Interpretation: eGFR > or = 60 is in t he Normal RangeeGF R < 60 may mean kidney diseaseeGFR < 1 5 may mean kidney failureRange s recommended by the National Kidney Foundation,http ://nkd ep.nih.gov [id number] 17:57:00 Test Item Value Reference Range Interpretation Comments WBC (test code = WBC) 11.7 K/cumm 4.4-10.5 H RBC (test code = RBC) 2.59 M/cumm 4.10-5.70 L Hemoglobin (test code = HGB) 8.1 gm/dL 13.4-17.4 L Hematocrit (test code = HCT) 24.1 % 38.7-52.0 L MCV (test code = MCV) 92.9 fL 80-100 N MCH (test code = MCH) 31.2 pg 27.0-32.5 N MCHC (test code = MCHC) 33.5 g/dL 32.0-37.5 N RDW (test code = RDW) 14.0 % 11.5-14.5 N Platelet Count (test code = 70 K/cumm 140-440 L PLTCT) MPV (test code = MPV) 9.0 fL POC Glucose, [id number] 17:51:00 Test Item Value Reference Range Interpretation Comments POC Glucose (test 161 mg/dL 70-115 H If you con senior linux systems administrator your code = POCGLUC) patient crit ically ill, the Kim Accu- Chek InformII meters hould not be used for Glu cose determinations. Draw a venous Glucose and send to the Main Lab for Analysis. [id number] 15:55:00 Test Item Value Reference Range Interpretation Comments WBC (test code = WBC) 10.9 K/cumm 4.4-10.5 H RBC (test code = RBC) 2.55 M/cumm 4.10-5.70 L Hemoglobin (test code = HGB) 7.9 gm/dL 13.4-17.4 L Hematocrit (test code = HCT) 23.9 % 38.7-52.0 L MCV (test code = MCV) 93.4 fL 80-100 N MCH (test code = MCH) 30.9 pg 27.0-32.5 N MCHC (test code = MCHC) 33.1 g/dL 32.0-37.5 N RDW (test code = RDW) 13.9 % 11.5-14.5 N Platelet Count (test code = 77 K/cumm 140-440 L PLTCT) MPV (test code = MPV) 8.9 fL Basic Metabolic [id number] 15:33:00 Test Item Value Reference Range Interpretation Comments Sodium (test code = 132 mmol/L 135-145 L NA) Potassium (test 3.6 mmol/L 3.5-5.1 N code = K) Chloride (test code 97 mmol/L 98-105 L = CL) Carbon Dioxide 22 mmol/L 22-29 N (test code = CO2) Glucose (test code 133 mg/dL 70-115 H = GLU) Blood Urea Nitrogen 27 mg/dL 8-23 H (test code = BUN) Creatinine (test 1.5 mg/dL 0.7-1.2 H code = CREAT) Calcium (test code 7.7 mg/dL 8.3-10.5 L = CA) BUN/Creatinine 18.0 Ratio (test code = BCRATIO) Anion Gap (test 13 mmol/L 7-16 N code = AGAP) Estimated GFR (test 48 eGFR (es timated code = GFR) mL/min/1.73m2 Glomerular Pola tration Rate) is an est imated value,calculate d from the patient's s eileen creatinine usin g the MDRD equation.I t is NOT the patient 's actual GFR. The eGFR provides a more clinicallyusefu l measure of kidn ey disease than se rum creatinine alone.This calculation [place] sex and race into account, if the informationis provided. If th e race is not provided , and the patient isAfamador-Amyonny can, multiply by 1.2 12. If sex is not prov ided, and thepatient is female, multipl y by 0.742. Results for patients <18 ye ars ofage have not been validated by th e MDRD study and shoul d be interpretedwith caution.eGFR Re sult Interpretation: eGFR > or = 60 is in t he Normal RangeeGF R < 60 may mean kidney diseaseeGFR < 1 5 may mean kidney failureRange s recommended by the National Kidney Foundation,http ://nkd ep.nih.gov POC Glucose, [id number] 14:26:00 Test Item Value Reference Range Interpretation Comments POC Glucose (test 139 mg/dL 70-115 H If you con senior linux systems administrator your code = POCGLUC) patient crit ically ill, the Kim Accu- Chek InformII meters hould not be used for Glu cose determinations. Draw a venous Glucose and send to the Main Lab for Analysis. Basic Metabolic [id number] 10:13:00 Test Item Value Reference Range Interpretation Comments Sodium (test code = 132 mmol/L 135-145 L NA) Potassium (test 3.9 mmol/L 3.5-5.1 N code = K) Chloride (test code 99 mmol/L 98-105 N = CL) Carbon Dioxide 21 mmol/L 22-29 L (test code = CO2) Glucose (test code 135 mg/dL 70-115 H = GLU) Blood Urea Nitrogen 25 mg/dL 8-23 H (test code = BUN) Creatinine (test 1.5 mg/dL 0.7-1.2 H code = CREAT) Calcium (test code 7.3 mg/dL 8.3-10.5 L = CA) BUN/Creatinine 16.7 Ratio (test code = BCRATIO) Anion Gap (test 12 mmol/L 7-16 N code = AGAP) Estimated GFR (test 48 eGFR (es timated code = GFR) mL/min/1.73m2 Glomerular Pola tration Rate) is an est imated value,calculate d from the patient's s eileen creatinine usin g the MDRD equation.I t is NOT the patient 's actual GFR. The eGFR provides a more clinicallyusefu l measure of kidn ey disease than se rum creatinine alone.This calculation [place] sex and race into account, if the informationis provided. If th e race is not provided , and the patient isAfrican-Amyonny can, multiply by 1.2 12. If sex is not prov ided, and thepatient is female, multipl y by 0.742. Results for patients <18 ye ars ofage have not been validated by e MDRD study and michael kaplan be interpretedwith caution.eGFR Re sult Interpretation: eGFR > or = 60 is in t he Normal RangeeGF R < 60 may mean kidney diseaseeGFR < 1 5 may mean kidney failureRange s recommended by the National Kidney Foundation,http ://nkd ep.nih.gov Magnesium, [id number] 10:13:00 Test Item Value Reference Range Interpretation Comments Magnesium (test code = MG) 2.2 mg/dL 1.7-2.5 N Blood Gas+Lytes+Glu+Ca+Hgb+Hct+[id number] 08:27:00 Test Item Value Reference Range Interpretation Comments pH, Blood Gas (test code 7.400 pH Units 7.350-7.450 N = BGPH) pH, Temp Corrected (test 7.389 pH Units code = BGPHC) pCO2 (test code = PCO2) 36.4 mm Hg 15-125 N pCO2, Temp Corrected 37.7 mm Hg 15-125 N (test code = PCO2C) pO2 (test code = PO2) 33.7 mm Hg 30-420 N PO2 is not a reliable measurement of the patient's oxygenation. Reference range not established for this test. Bicarbonate (test code = 22.5 mmol/L 22.0-26.0 N HCO3) Base Excess (test code = -2.0 mmol/L BE) O2 Saturation (test code 67.4 % 20.0-100.0 N % O 2SAT is not a = O2SAT) reliable measurement of the patient's oxygenation.Ref er ence range not established for this test. Sodium, Blood Gas (test 136 mmol/L 135-145 N code = BGNA) Potassium, Blood Gas 3.7 mmol/L 3.5-4.5 N (test code = BGK) Chloride, Blood Gas 103 98-105 N (test code = BGCL) Calcium, Ionized, Blood 1.01 mmol/L 1.00-1.50 N Gas (test code = BGCAI) Glucose, Blood Gas (test 128 mg/dL 75-115 H code = BGGLU) tHB (test code = RTHB) 7.6 gm/dL 7.0-25.0 N Hematocrit, Blood Gas 23.2 % 34.0-52.0 L (test code = BGHCT) O2Hb (test code = RO2HB) 66 80-100 L Carboxyhemoglobin (test 1.7 % 0.0-20.0 N code = CARHGB) FLOW (LPM) (test code = 2 L/min FLOW) Patient Temperature 37.8 Degrees (test code = PTTEMP) Celcius Puncture Site (test code Art line = PUNSITE) Drawing Tech ID (test RN code = DRAWTECH) Lactic Acid, Blood Gas 2.4 mmol/L (test code = BGLA) iPAP (test code = IPAP) 0 cmH2O Respiratory Rate (test 0 code = RESP RATE) Blood Type and [id number] 07:59:00 Test Item Value Reference Range Interpretation Comments ABO type (test code = ABO) A Rh Type (test code = RH) Positive Antibody Screen - [id number] 07:59:00 Test Item Value Reference Range Interpretation Comments Antibody Screen (test code = ABSCR) Negative Blood Gas+Lytes+Glu+Ca+Hgb+Hct+[id number] 07:41:00 Test Item Value Reference Range Interpretation Comments pH, Blood Gas (test code = 7.457 pH Units 7.35-7.45 H BGPH) pH, Temp Corrected (test 7.445 pH Units 7.35-7.45 N code = BGPHC) pCO2 (test code = PCO2) 31.9 mm Hg 35-45 L pCO2, Temp Corrected (test 33.0 mm Hg 35-45 L code = PCO2C) pO2 (test code = PO2) 75.0 mm Hg 80-100 L pO2, Temp Corrected (test 78.6 mm Hg 80-100 L code = PO2C) Bicarbonate (test code = 22.5 mmol/L 22.0-26.0 N HCO3) Base Excess (test code = BE) -1.2 mmol/L O2 Saturation (test code = 97.4 % 80.0-100.0 N O2SAT) Sodium, Blood Gas (test code 135 mmol/L 135-145 N = BGNA) Potassium, Blood Gas (test 3.9 mmol/L 3.5-4.5 N code = BGK) Chloride, Blood Gas (test 103 mmol/L 98-105 N code = BGCL) Calcium, Ionized, Blood Gas 1.03 mmol/L 1.00-1.50 N (test code = BGCAI) Glucose, Blood Gas (test 144 mg/dL 75-115 H code = BGGLU) tHB (test code = RTHB) 7.4 gm/dL 12.2-17.4 L Hematocrit, Blood Gas (test 22.6 % 34.0-52.0 L code = BGHCT) O2Hb (test code = RO2HB) 95 80-100 N Carboxyhemoglobin (test code 1.1 % 0.0-20.0 N = CARHGB) Methemoglobin (test code = 1.3 % 0.0-20.0 N METHGB) FLOW (LPM) (test code = 2 L/min FLOW) Patient Temperature (test 37.8 Degrees code = PTTEMP) Celcius Puncture Site (test code = Art line PUNSITE) Drawing Tech ID (test code = RN DRAWTECH) Lactic Acid, Blood Gas (test 1.6 mmol/L code = BGLA) Respiratory Rate (test code 0 = RESP RATE) XR CHEST 1 [id number] 07:18:08AP CHEST:CLINICAL INFORMATION: post op cabg COMPARISONS: January 31, 2017FINDINGS: Lines and tubes: The right internal jugular vein approach [place]-Ganzcatheter terminates in the right pulmonary artery. The right internaljugular vein approach central line terminates at the superior cavoatrialjunction. Mediastinal and chest tubes remain.Lungs and pleura: The lung volumes are decreased. There is stableelevation of the left hemidiaphragm. Associated left basilaratelectasis is noted. No pneumothorax is identified.Heart and mediastinum: The cardiac silhouette is moderately enlarged butstable. Pulmonary vascular congestion is noted. 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 Lines and tubes as described.2. Left basilar atelectasis.Location: R16C with [id number] 05:37:00 Test Item Value Reference Range Interpretation Comments WBC (test code = WBC) 11.7 K/cumm 4.4-10.5 H RBC (test code = RBC) 2.42 M/cumm 4.10-5.70 L Hemoglobin (test code = HGB) 7.7 gm/dL 13.4-17.4 L Hematocrit (test code = HCT) 23.3 % 38.7-52.0 L MCV (test code = MCV) 96.4 fL 80-100 N MCH (test code = MCH) 31.8 pg 27.0-32.5 N MCHC (test code = MCHC) 33.0 g/dL 32.0-37.5 N RDW (test code = RDW) 14.3 % 11.5-14.5 N Platelet Count (test code = 99 K/cumm 140-440 L PLTCT) MPV (test code = MPV) 8.2 fL Diff Method (test code = DIFFM) Auto Neutrophil (test code = NEUT) 83.3 % 36-70 H Lymphocyte (test code = LYMPH) 8.6 % 12-44 L Monocyte (test code = MONO) 6.7 % 0-11 N Eosinophil (test code = EOS) 1.2 % 0-7 N Basophil (test code = BASO) 0.1 % 0-2 N Neutro Abs (test code = ANEUT) 9.7 K/cumm 1.6-7.4 H Lymph Abs (test code = ALYMPH) 1.0 K/cumm 0.5-4.6 N Rabun Abs (test code = AMONO) 0.8 K/cumm 0.0-1.2 N Eos Abs (test code = AEOS) 0.15 K/cumm 0.00-0.74 N Baso Abs (test code = ABASO) 0.0 K/cumm 0.00-0.21 N Basic Metabolic [id number] 05:36:00 Test Item Value Reference Range Interpretation Comments Sodium (test code = 132 mmol/L 135-145 L NA) Potassium (test 4.2 mmol/L 3.5-5.1 N code = K) Chloride (test code 99 mmol/L 98-105 N = CL) Carbon Dioxide 24 mmol/L 22-29 N (test code = CO2) Glucose (test code 155 mg/dL 70-115 H = GLU) Blood Urea Nitrogen 25 mg/dL 8-23 H (test code = BUN) Creatinine (test 1.5 mg/dL 0.7-1.2 H code = CREAT) Calcium (test code 7.5 mg/dL 8.3-10.5 L = CA) BUN/Creatinine 16.7 Ratio (test code = BCRATIO) Anion Gap (test 9 mmol/L 7-16 N code = AGAP) Estimated GFR (test 48 eGFR (es timated code = GFR) mL/min/1.73m2 Glomerular Pola tration Rate) is an est imated value,calculate d from the patient's s eileen creatinine usin g the MDRD equation.I t is NOT the patient 's actual GFR. The eGFR provides a more clinicallyusefu l measure of kidn ey disease than se rum creatinine alone.This calculation [place] sex and race into account, if the informationis provided. If th e race is not provided , and the patient isAfrican-Ameri can, multiply by 1.2 12. If sex is not prov ided, and thepatient is female, multipl y by 0.742. Results for patients <18 ye ars ofage have not been validated by e MDRD study and shoul d be interpretedwith caution.eGFR Re sult Interpretation: eGFR > or = 60 is in t he Normal RangeeGF R < 60 may mean kidney diseaseeGFR < 1 5 may mean kidney failureRange s recommended by the National Kidney Foundation,http ://nkd ep.nih.gov Magnesium, [id number] 05:36:00 Test Item Value Reference Range Interpretation Comments Magnesium (test code = MG) 2.5 mg/dL 1.7-2.5 N Magnesium, [id number] 01:30:00 Test Item Value Reference Range Interpretation Comments Magnesium (test code = MG) 2.0 mg/dL 1.7-2.5 N Basic Metabolic [id number] 01:30:00 Test Item Value Reference Range Interpretation Comments Sodium (test code = 132 mmol/L 135-145 L NA) Potassium (test 4.0 mmol/L 3.5-5.1 N code = K) Chloride (test code 99 mmol/L 98-105 N = CL) Carbon Dioxide 21 mmol/L 22-29 L (test code = CO2) Glucose (test code 164 mg/dL 70-115 H = GLU) Blood Urea Nitrogen 25 mg/dL 8-23 H (test code = BUN) Creatinine (test 1.5 mg/dL 0.7-1.2 H code = CREAT) Calcium (test code 7.3 mg/dL 8.3-10.5 L = CA) BUN/Creatinine 16.7 Ratio (test code = BCRATIO) Anion Gap (test 12 mmol/L 7-16 N code = AGAP) Estimated GFR (test 48 eGFR (es timated code = GFR) mL/min/1.73m2 Glomerular Pola tration Rate) is an est imated value,calculate d from the patient's s eileen creatinine usin g the MDRD equation.I t is NOT the patient 's actual GFR. The eGFR provides a more clinicallyusefu l measure of kidn ey disease than se rum creatinine alone.This calculation [place] sex and race into account, if the informationis provided. If th e race is not provided , and the patient isAfrican-Ameri can, multiply by 1.2 12. If sex is not prov ided, and thepatient is female, multipl y by 0.742. Results for patients <18 ye ars ofage have not been validated by th e MDRD study and shoul d be interpretedwith caution.eGFR Re sult Interpretation: eGFR > or = 60 is in t he Normal RangeeGF R < 60 may mean kidney diseaseeGFR < 1 5 may mean kidney failureRange s recommended by the National Kidney Foundation,http ://nkd ep.nih.gov RBC, Crossmatch [id number] 00:55:00 Test Item Value Reference Range Interpretation Comments Product 1 Code (test code = E4532 PRODCODE1) Unit 1 ID (test code = [id number] UNITID1) Unit 1 ABO (test code = A UNITABO1) Unit 1 Rh (test code = POS UNITRH1) Unit 1 Interp (test code = Compatible UNITINTERP1) Unit 1 Status (test code = RE UNITSTAT1) Product 2 Code (test code = E0336 PRODCODE2) Unit 2 ID (test code = [id number] UNITID2) Unit 2 ABO (test code = A UNITABO2) Unit 2 Rh (test code = POS UNITRH2) Unit 2 Interp (test code = Compatible UNITINTERP2) Unit 2 Status (test code = RE UNITSTAT2) Basic Metabolic [id number] 21:28:00 Test Item Value Reference Range Interpretation Comments Sodium (test code = 132 mmol/L 135-145 L NA) Potassium (test 4.2 mmol/L 3.5-5.1 N code = K) Chloride (test code 100 mmol/L 98-105 N = CL) Carbon Dioxide 20 mmol/L 22-29 L (test code = CO2) Glucose (test code 159 mg/dL 70-115 H = GLU) Blood Urea Nitrogen 25 mg/dL 8-23 H (test code = BUN) Creatinine (test 1.5 mg/dL 0.7-1.2 H code = CREAT) Calcium (test code 7.3 mg/dL 8.3-10.5 L = CA) BUN/Creatinine 16.7 Ratio (test code = BCRATIO) Anion Gap (test 12 mmol/L 7-16 N code = AGAP) Estimated GFR (test 48 eGFR (es timated code = GFR) mL/min/1.73m2 Glomerular Pola tration Rate) is an est imated value,calculate d from the patient's s eileen creatinine usin g the MDRD equation.I t is NOT the patient 's actual GFR. The eGFR provides a more clinicallyusefu l measure of kidn ey disease than se rum creatinine alone.This calculation [place] sex and race into account, if the informationis provided. If th e race is not provided , and the patient isAfrican-Ameri can, multiply by 1.2 12. If sex is not prov ided, and thepatient is female, multipl y by 0.742. Results for patients <18 ye ars ofage have not been validated by th e MDRD study and shoul d be interpretedwith caution.eGFR Re sult Interpretation: eGFR > or = 60 is in t he Normal RangeeGF R < 60 may mean kidney diseaseeGFR < 1 5 may mean kidney failureRange s recommended by the National Kidney Foundation,http ://nkd ep.nih.gov Magnesium, [id number] 21:28:00 Test Item Value Reference Range Interpretation Comments Magnesium (test code = MG) 2.1 mg/dL 1.7-2.5 N POC Glucose, [id number] 21:03:00 Test Item Value Reference Range Interpretation Comments POC Glucose (test 169 mg/dL 70-115 H If you con senior linux systems administrator your code = POCGLUC) patient crit ically ill, the Kim Accu- Chek InformII meters hould not be used for Glu cose determinations. Draw a venous Glucose and send to the Main Lab for Analysis. POC Glucose, [id number] 18:10:00 Test Item Value Reference Range Interpretation Comments POC Glucose (test 156 mg/dL 70-115 H If you con senior linux systems administrator your code = POCGLUC) patient crit ically ill, the Kim Accu- Chek InformII meters hould not be used for Glu cose determinations. Draw a venous Glucose and send to the Main Lab for Analysis. POC Glucose, [id number] 13:32:00 Test Item Value Reference Range Interpretation Comments POC Glucose (test 150 mg/dL 70-115 H If you con senior linux systems administrator your code = POCGLUC) patient crit ically ill, the Kim Accu- Chek InformII meters hould not be used for Glu cose determinations. Draw a venous Glucose and send to the Main Lab for Analysis. POC Glucose, [id number] 10:51:00 Test Item Value Reference Range Interpretation Comments POC Glucose (test 155 mg/dL 70-115 H If you con senior linux systems administrator your code = POCGLUC) patient crit ically ill, the Kim Accu- Chek InformII meters hould not be used for Glu cose determinations. Draw a venous Glucose and send to the Main Lab for Analysis. XR CHEST 1 [id number] 07:21:47AP CHEST:CLINICAL INFORMATION: post op cabg COMPARISONS: January 30, 2017FINDINGS: Lines and tubes: The right internal jugular vein central line terminatesin the superior vena cava. The right internal jugular vein approachSwan-Letha catheter terminates in the right pulmonary artery. Amediastinal drainand left-sided chest tube are noted. The patient hasbeen extubated in the interim.Lungs and pleura:Left lower lobe subsegmental atelectasis remains withstable elevation of the left hemidiaphragm. Atelectasis in the rightlower lobe has improved. No pneumothorax is identified.Heart and mediastinum: The cardiac silhouette is mildly enlarged butstable. Central pulmonary vascular congestion is noted. The aorta isectatic and tortuous.Bones and soft tissues: Median sternotomy wires and left chestpacem althea.IMPRESSION:1. Status post extubation. Other lines and tubes are stable.2. Subsegmental atelectasis in the left lower lobe.Location: [id number] Glucose, [id number] 07:14:00 Test Item Value Reference Range Interpretation Comments POC Glucose (test 130 mg/dL 70-115 H If you con senior linux systems administrator your code = POCGLUC) patient crit ically ill, the Kim Accu- Chek InformII meters hould not be used for Glu cose determinations. Draw a venous Glucose and send to the Main Lab for Analysis. POC Glucose, [id number] 06:37:00 Test Item Value Reference Range Interpretation Comments POC Glucose (test 145 mg/dL 70-115 H If you con senior linux systems administrator your code = POCGLUC) patient crit ically ill, the Kim Accu- Chek InformII meters hould not be used for Glu cose determinations. Draw a venous Glucose and send to the Main Lab for Analysis. POC Glucose, [id number] 05:37:00 Test Item Value Reference Range Interpretation Comments POC Glucose (test 173 mg/dL 70-115 H If you con senior linux systems administrator your code = POCGLUC) patient crit ically ill, the Kim Accu- Chek InformII meters hould not be used for Glu cose determinations. Draw a venous Glucose and send to the Main Lab for Analysis. POC Glucose, [id number] 04:26:00 Test Item Value Reference Range Interpretation Comments POC Glucose (test 172 mg/dL 70-115 H If you con senior linux systems administrator your code = POCGLUC) patient crit ically ill, the Kim Accu- Chek InformII meters hould not be used for Glu cose determinations. Draw a venous Glucose and send to the Main Lab for Analysis. Magnesium, [id number] 04:20:00 Test Item Value Reference Range Interpretation Comments Magnesium (test code = MG) 2.2 mg/dL 1.7-2.5 N Basic Metabolic [id number] 04:20:00 Test Item Value Reference Range Interpretation Comments Sodium (test code = 137 mmol/L 135-145 N NA) Potassium (test 4.0 mmol/L 3.5-5.1 N code = K) Chloride (test code 104 mmol/L 98-105 N = CL) Carbon Dioxide 15 mmol/L 22-29 L (test code = CO2) Glucose (test code 202 mg/dL 70-115 H = GLU) Blood Urea Nitrogen 22 mg/dL 8-23 N (test code = BUN) Creatinine (test 1.4 mg/dL 0.7-1.2 H code = CREAT) Calcium (test code 7.7 mg/dL 8.3-10.5 L = CA) BUN/Creatinine 15.7 Ratio (test code = BCRATIO) Anion Gap (test 18 mmol/L 7-16 H code = AGAP) Estimated GFR (test 52 eGFR (es timated code = GFR) mL/min/1.73m2 Glomerular Pola tration Rate) is an est imated value,calculate d from the patient's s eileen creatinine usin g the MDRD equation.I t is NOT the patient 's actual GFR. The eGFR provides a more clinicallyusefu l measure of kidn ey disease than se rum creatinine alone.This calculation [place] sex and race into account, if the informationis provided. If th e race is not provided , and the patient isAfrican-Ameri can, multiply by 1.2 12. If sex is not prov ided, and thepatient is female, multipl y by 0.742. Results for patients <18 ye ars ofage have not been validated by th e MDRD study and shoul d be interpretedwith caution.eGFR Re sult Interpretation: eGFR > or = 60 is in t he Normal RangeeGF R < 60 may mean kidney diseaseeGFR < 1 5 may mean kidney failureRange s recommended by the National Kidney Foundation,http ://nkd ep.nih.gov CBC with [id number] 04:18:00 Test Item Value Reference Range Interpretation Comments WBC (test code = WBC) 12.1 K/cumm 4.4-10.5 H RBC (test code = RBC) 2.88 M/cumm 4.10-5.70 L Hemoglobin (test code = HGB) 9.1 gm/dL 13.4-17.4 L Hematocrit (test code = HCT) 27.6 % 38.7-52.0 L MCV (test code = MCV) 96.0 fL 80-100 N MCH (test code = MCH) 31.6 pg 27.0-32.5 N MCHC (test code = MCHC) 32.9 g/dL 32.0-37.5 N RDW (test code = RDW) 13.5 % 11.5-14.5 N Platelet Count (test code = 129 K/cumm 140-440 L PLTCT) MPV (test code = MPV) 8.6 fL Diff Method (test code = DIFFM) Auto Neutrophil (test code = NEUT) 83.3 % 36-70 H Lymphocyte (test code = LYMPH) 8.3 % 12-44 L Monocyte (test code = MONO) 8.1 % 0-11 N Eosinophil (test code = EOS) 0.2 % 0-7 N Basophil (test code = BASO) 0.1 % 0-2 N Neutro Abs (test code = ANEUT) 10.1 K/cumm 1.6-7.4 H Lymph Abs (test code = ALYMPH) 1.0 K/cumm 0.5-4.6 N Rabun Abs (test code = AMONO) 1.0 K/cumm 0.0-1.2 N Eos Abs (test code = AEOS) 0.03 K/cumm 0.00-0.74 N Baso Abs (test code = ABASO) 0.0 K/cumm 0.00-0.21 N POC Glucose, [id number] 03:30:00 Test Item Value Reference Range Interpretation Comments POC Glucose (test 220 mg/dL 70-115 H If you con senior linux systems administrator your code = POCGLUC) patient crit ically ill, the Kim Accu- Chek InformII meters hould not be used for Glu cose determinations. Draw a venous Glucose and send to the Main Lab for Analysis. POC Glucose, [id number] 02:17:00 Test Item Value Reference Range Interpretation Comments POC Glucose (test 208 mg/dL 70-115 H If you con senior linux systems administrator your code = POCGLUC) patient crit ically ill, the Kim Accu- Chek InformII meters hould not be used for Glu cose determinations. Draw a venous Glucose and send to the Main Lab for Analysis. POC Glucose, [id number] 01:22:00 Test Item Value Reference Range Interpretation Comments POC Glucose (test 231 mg/dL 70-115 H If you con senior linux systems administrator your code = POCGLUC) patient crit ically ill, the Kim Accu- Chek InformII meters hould not be used for Glu cose determinations. Draw a venous Glucose and send to the Main Lab for Analysis. [id number] 00:42:00 Test Item Value Reference Range Interpretation Comments WBC (test code = WBC) 14.1 K/cumm 4.4-10.5 H RBC (test code = RBC) 2.92 M/cumm 4.10-5.70 L Hemoglobin (test code = HGB) 9.2 gm/dL 13.4-17.4 L Hematocrit (test code = HCT) 28.1 % 38.7-52.0 L MCV (test code = MCV) 96.1 fL 80-100 N MCH (test code = MCH) 31.4 pg 27.0-32.5 N MCHC (test code = MCHC) 32.7 g/dL 32.0-37.5 N RDW (test code = RDW) 13.4 % 11.5-14.5 N Platelet Count (test code = 131 K/cumm 140-440 L PLTCT) MPV (test code = MPV) 8.7 fL POC Glucose, [id number] 00:14:00 Test Item Value Reference Range Interpretation Comments POC Glucose (test 206 mg/dL 70-115 H If you con senior linux systems administrator your code = POCGLUC) patient crit ically ill, the Kim Accu- Chek InformII meters hould not be used for Glu cose determinations. Draw a venous Glucose and send to the Main Lab for Analysis. POC Glucose, [id number] 22:45:00 Test Item Value Reference Range Interpretation Comments POC Glucose (test 230 mg/dL 70-115 H If you con senior linux systems administrator your code = POCGLUC) patient crit ically ill, the Kim Accu- Chek InformII meters hould not be used for Glu cose determinations. Draw a venous Glucose and send to the Main Lab for Analysis. [id number] 22:30:00 Test Item Value Reference Range Interpretation Comments Phosphorus (test code = PO4) 3.4 mg/dL 2.70-4.50 N Magnesium, [id number] 22:30:00 Test Item Value Reference Range Interpretation Comments Magnesium (test code = MG) 2.4 mg/dL 1.7-2.5 N POC Glucose, [id number] 21:43:00 Test Item Value Reference Range Interpretation Comments POC Glucose (test 247 mg/dL 70-115 H If you con senior linux systems administrator your code = POCGLUC) patient crit ically ill, the Kim Accu- Chek InformII meters hould not be used for Glu cose determinations. Draw a venous Glucose and send to the Main Lab for Analysis. POC Glucose, [id number] 20:38:00 Test Item Value Reference Range Interpretation Comments POC Glucose (test 225 mg/dL 70-115 H If you con senior linux systems administrator your code = POCGLUC) patient crit ically ill, the Kim Accu- Chek InformII meters hould not be used for Glu cose determinations. Draw a venous Glucose and send to the Main Lab for Analysis. Comprehensive Metabolic [id number] 20:06:00 Test Item Value Reference Range Interpretation Comments Sodium (test code = 140 mmol/L 135-145 N NA) Potassium (test 4.2 mmol/L 3.5-5.1 N code = K) Chloride (test code 102 mmol/L 98-105 N = CL) Carbon Dioxide 19 mmol/L 22-29 L (test code = CO2) Glucose (test code 220 mg/dL 70-115 H = GLU) Blood Urea Nitrogen 19 mg/dL 8-23 N (test code = BUN) Creatinine (test 1.3 mg/dL 0.7-1.2 H code = CREAT) Calcium (test code 7.8 mg/dL 8.3-10.5 L = CA) Prot Total (test 5.0 g/dL 6.4-8.3 L code = TP) Albumin (test code 3.2 g/dL 3.5-5.2 L = ALB) A/G Ratio (test 1.8 Ratio code = AGRATIO) Globulin (test code 1.8 2.9-3.1 L = GLOB) Bili Total (test 0.8 mg/dL 0.1-0.9 N code = TBIL) Alk Phos (test code 49 U/L 40-129 N = APHOS) AST (test code = 43 U/L 1-40 H AST) ALT (test code = 11 U/L 1-41 N ALT) BUN/Creatinine 14.6 Ratio (test code = BCRATIO) Anion Gap (test 19 mmol/L 7-16 H code = AGAP) Estimated GFR (test 56 eGFR (es timated code = GFR) mL/min/1.73m2 Glomerular Pola tration Rate) is an est imated value,calculate d from the patient's s eileen creatinine usin g the MDRD equation.I t is NOT the patient 's actual GFR. The eGFR provides a more clinicallyusefu l measure of kidn ey disease than se rum creatinine alone.This calculation [place] sex and race into account, if the informationis provided. If th e race is not provided , and the patient isAfrican-Ameri can, multiply by 1.2 12. If sex is not prov ided, and thepatient is female, multipl y by 0.742. Results for patients <18 ye ars ofage have not been validated by th e MDRD study and shoul d be interpretedwith caution.eGFR Re sult Interpretation: eGFR > or = 60 is in t he Normal RangeeGF R < 60 may mean kidney diseaseeGFR < 1 5 may mean kidney failureRange s recommended by the National Kidney Foundation,http ://nkd ep.nih.gov CBC with [id number] 19:53:00 Test Item Value Reference Range Interpretation Comments WBC (test code = WBC) 17.9 K/cumm 4.4-10.5 H RBC (test code = RBC) 3.47 M/cumm 4.10-5.70 L Hemoglobin (test code = HGB) 11.2 gm/dL 13.4-17.4 L Hematocrit (test code = HCT) 33.5 % 38.7-52.0 L MCV (test code = MCV) 96.7 fL 80-100 N MCH (test code = MCH) 32.4 pg 27.0-32.5 N MCHC (test code = MCHC) 33.5 g/dL 32.0-37.5 N RDW (test code = RDW) 13.2 % 11.5-14.5 N Platelet Count (test code = 155 K/cumm 140-440 N PLTCT) MPV (test code = MPV) 9.7 fL Diff Method (test code = DIFFM) Auto Neutrophil (test code = NEUT) 86.3 % 36-70 H Lymphocyte (test code = LYMPH) 5.5 % 12-44 L Monocyte (test code = MONO) 7.9 % 0-11 N Eosinophil (test code = EOS) 0.2 % 0-7 N Basophil (test code = BASO) 0.2 % 0-2 N Neutro Abs (test code = ANEUT) 15.5 K/cumm 1.6-7.4 H Lymph Abs (test code = ALYMPH) 1.0 K/cumm 0.5-4.6 N Rabun Abs (test code = AMONO) 1.4 K/cumm 0.0-1.2 H Eos Abs (test code = AEOS) 0.04 K/cumm 0.00-0.74 N Baso Abs (test code = ABASO) 0.0 K/cumm 0.00-0.21 N XR CHEST 1 [id number] 17:25:58CHEST 1 VIEWCLINICAL INFORMATION: pneumothoraxCOMPARISON: Chest x-ray dated January 30, 2017 at 1309 hoursFINDINGS:The current exam is timed at 1624 hours. There is now reexpansion ofthe right lung. No right pneumothorax is seen. The lung volumes aredecreased. Bibasilar atelectatic changes are present. The cardiacsilhouette is mildly enlarged but stable. The aorta is ectatic andtortuous.The endo tracheal tube terminates 5 cm from the derek. A right internaljugular vein central line terminatesin the high right atrium. A rightinternal jugular vein approach [place]-Letha catheter terminates in theright pulmonary artery. A left chest pacemaker and median sternotomywires are redemonstrated. Lines and tubes project over the lowerthorax.IMPRESSION:1. Interval reexpansion of the right lung. No right pneumothorax isseen.2. Post-CABG changes.LOCATION: [id number] 17:07:00 Test Item Value Reference Interpretation Comments Range pH, Blood Gas (test 7.267 pH Units 7.350-7.450 L code = BGPH) pCO2 (test code = PCO2) 42.9 mm Hg 15-125 N pO2 (test code = PO2) 32.4 mm Hg 30-420 N PO2 is not a reliable measurement of the patient's oxygenation. Reference range not established for this test. Bicarbonate (test code 19.5 mmol/L 22.0-26.0 LL = HCO3) Base Excess (test code -7.1 mmol/L = BE) O2 Saturation (test 55.6 % 20.0-100.0 N % O2SAT is not a code = O2SAT) reliable measurement of the patient's oxygenation.Ref e rence range not established for this test. tHB (test code = RTHB) 11.5 gm/dL 7.0-25.0 N Hematocrit, Blood Gas 35.2 % 34.0-52.0 N (test code = BGHCT) O2Hb (test code = 54 80-100 L RO2HB) Carboxyhemoglobin (test 1.5 % 0.0-20.0 N code = CARHGB) FIO2 % (test code = 60 % FIO2) Patient Temperature 37.0 Degrees (test code = PTTEMP) Celcius Comment (test code = for calibration COMMENT) of swan box Puncture Site (test Other code = PUNSITE) iPAP (test code = IPAP) 0 cmH2O Peep (test code = 5 RPEEP) Plateletpheresis 1 [id number] 16:43:00 Test Item Value Reference Range Interpretation Comments Product 1 Code (test code = E3077 PRODCODE1) Unit 1 ID (test code = [id number] UNITID1) Unit 1 ABO (test code = A UNITABO1) Unit 1 Rh (test code = POS UNITRH1) Unit 1 Status (test code = RE UNITSTAT1) POC Glucose, [id number] 16:13:00 Test Item Value Reference Range Interpretation Comments POC Glucose (test 151 mg/dL 70-115 H If you con senior linux systems administrator your code = POCGLUC) patient crit ically ill, the Kim Accu- Chek InformII meters hould not be used for Glu cose determinations. Draw a venous Glucose and send to the Main Lab for Analysis. POC Glucose, [id number] 15:36:00 Test Item Value Reference Range Interpretation Comments POC Glucose (test 143 mg/dL 70-115 H If you con senior linux systems administrator your code = POCGLUC) patient crit ically ill, the Kim Accu- Chek InformII meters hould not be used for Glu cose determinations. Draw a venous Glucose and send to the Main Lab for Analysis. Blood [id number] 15:05:00 Test Item Value Reference Range Interpretation Comments pH, Blood Gas (test code 7.336 pH Units 7.350-7.450 L = BGPH) pH, Temp Corrected (test 7.350 pH Units 7.35-7.45 N code = BGPHC) pCO2 (test code = PCO2) 42.1 mm Hg 15-125 N pCO2, Temp Corrected 40.3 mm Hg 15-125 N (test code = PCO2C) pO2 (test code = PO2) 34.8 mm Hg 30-420 N PO2 is not a reliable measurement of the patient's oxygenation. Reference range not established for this test. Bicarbonate (test code = 22.5 mmol/L 22.0-26.0 N HCO3) Base Excess (test code = -3.3 mmol/L BE) O2 Saturation (test code 63.6 % 20.0-100.0 N % O 2SAT is not a = O2SAT) reliable measurement of the patient's oxygenation.Ref er ence range not established for this test. tHB (test code = RTHB) 12.6 gm/dL 7.0-25.0 N Hematocrit, Blood Gas 38.8 % 34.0-52.0 N (test code = BGHCT) O2Hb (test code = RO2HB) 62 80-100 L Carboxyhemoglobin (test 1.5 % 0.0-20.0 N code = CARHGB) FIO2 % (test code = 60 % FIO2) Patient Temperature 36.0 Degrees (test code = PTTEMP) Celcius Puncture Site (test code Other = PUNSITE) iPAP (test code = IPAP) 0 cmH2O Peep (test code = RPEEP) 5 Respiratory Rate (test 18 code = RESP RATE) Tidal Volume (test code 0.550 Liters = TIDALVOL) XR CHEST 1 [id number] 14:17:30EXAM: CHEST ONE VIEWINDICATION: IntubatedCOMPARISON: January 26, 2017TECHNIQUE: AP view of the chest.FINDINGS: The endotracheal tube is 3.4 cm above the derek. The right centralvenous catheter overliesthe atriocaval junction. There is a [place]-Ganzcatheter with the tip in the right pulmonary vessels. There is amoderate right pneumothorax. The cardiomediastinal silhouette isunchanged. There is a cardiac pacing device in the left chest with noapparent discontinuity of the leads. The left lung is clear.The osseousstructures are unremarkable.IMPRESSION: Postoperative chest with a moderate right pneumothorax.The above findings were discussed with Dr. Sanches with the ICU physicianat 2:20 PM via telephone.LOCATION: [facility] with [id number] 14:16:00 Test Item Value Reference Range Interpretation Comments WBC (test code = WBC) 19.8 K/cumm 4.4-10.5 H RBC (test code = RBC) 3.78 M/cumm 4.10-5.70 L Hemoglobin (test code = 12.1 gm/dL 13.4-17.4 L HGB) Hematocrit (test code = 35.4 % 38.7-52.0 L HCT) MCV (test code = MCV) 93.6 fL 80-100 N MCH (test code = MCH) 32.0 pg 27.0-32.5 N MCHC (test code = MCHC) 34.1 g/dL 32.0-37.5 N RDW (test code = RDW) 13.1 % 11.5-14.5 N Platelet Count (test 146 K/cumm 140-440 N code = PLTCT) MPV (test code = MPV) 8.3 fL Diff Method (test code Manual = DIFFM) Neutrophil (test code = 79.0 % 36-70 H NEUT) Bands (test code = 11.0 % 0-6 H BAND) Lymphocyte (test code = 6.0 % 12-44 L LYMPH) Monocyte (test code = 3.0 % 0-11 N MONO) Eosinophil (test code = 1.0 % 0-7 N EOS) Neutro Abs (test code = 17.8 K/cumm 1.6-7.4 H ANEUT) Lymph Abs (test code = 1.2 K/cumm 0.5-4.6 N ALYMPH) Rabun Abs (test code = 0.6 K/cumm 0.0-1.2 N AMONO) Eos Abs (test code = 0.20 K/cumm 0.00-0.74 N AEOS) RBC Morphology (test Normal code = RBCMRPH) Platelet Est (test code Decreased Platelet on = PLTEST) Smear Fibrinogen [id number] 14:11:00 Test Item Value Reference Range Interpretation Comments Fibrinogen (test code = FIB) 284.00 mg/dL 188.56-473.80 N Prothrombin [id number] 14:11:00 Test Item Value Reference Range Interpretation Comments PT (test code = PT) 14.80 seconds 9.78-13.35 H INR (test code = INR) 1.30 Ratio 0.6-1.2 H Partial Thromboplastin [id number] 14:11:00 Test Item Value Reference Range Interpretation Comments aPTT (test code = PTT) 22.40 seconds 24.39-37.25 L Basic Metabolic [id number] 13:51:00 Test Item Value Reference Range Interpretation Comments Sodium (test code = 135 mmol/L 135-145 N NA) Potassium (test 4.2 mmol/L 3.5-5.1 N code = K) Chloride (test code 102 mmol/L 98-105 N = CL) Carbon Dioxide 19 mmol/L 22-29 L (test code = CO2) Glucose (test code 194 mg/dL 70-115 H = GLU) Blood Urea Nitrogen 17 mg/dL 8-23 N (test code = BUN) Creatinine (test 1.1 mg/dL 0.7-1.2 N code = CREAT) Calcium (test code 8.0 mg/dL 8.3-10.5 L = CA) BUN/Creatinine 15.5 Ratio (test code = BCRATIO) Anion Gap (test 14 mmol/L 7-16 N code = AGAP) Estimated GFR (test >60 eGFR (es timated code = GFR) mL/min/1.73m2 Glomerular Pola tration Rate) is an est imated value,calculate d from the patient's s eileen creatinine usin g the MDRD equation.I t is NOT the patient 's actual GFR. The eGFR provides a more clinicallyusefu l measure of kidn ey disease than se rum creatinine alone.This calculation [place] es sex and race into account, if the informationis provided. If th e race is not provided , and the patient isAfrican-Ameri can, multiply by 1.2 12. If sex is not prov ided, and thepatient is female, multipl y by 0.742. Results for patients <18 ye ars ofage have not been validated by e MDRD study and michael d be interpretedwith caution.eGFR Re sult Interpretation: eGFR > or = 60 is in t he Normal RangeeGF R < 60 may mean kidney diseaseeGFR < 1 5 may mean kidney failureRange s recommended by the National Kidney Foundation,http ://nkd ep.nih.gov [id number] 13:51:00 Test Item Value Reference Range Interpretation Comments Phosphorus (test code = PO4) 3.7 mg/dL 2.70-4.50 N Magnesium, [id number] 13:51:00 Test Item Value Reference Range Interpretation Comments Magnesium (test code = MG) 2.6 mg/dL 1.7-2.5 H Blood Gas+Lytes+Glu+Ca+Hgb+Hct+[id number] 13:50:00 Test Item Value Reference Range Interpretation Comments pH, Blood Gas (test code = 7.370 pH Units 7.35-7.45 N BGPH) pCO2 (test code = PCO2) 36.1 mm Hg 35-45 N pO2 (test code = PO2) 65.3 mm Hg 80-100 L Bicarbonate (test code = 20.9 mmol/L 22.0-26.0 LL HCO3) Base Excess (test code = -3.9 mmol/L BE) O2 Saturation (test code = 93.1 % 80.0-100.0 N O2SAT) Sodium, Blood Gas (test 137 mmol/L 135-145 N code = BGNA) Potassium, Blood Gas (test 4.2 mmol/L 3.5-4.5 N code = BGK) Chloride, Blood Gas (test 108 mmol/L 98-105 H code = BGCL) Calcium, Ionized, Blood Gas 1.18 mmol/L 1.00-1.50 N (test code = BGCAI) Glucose, Blood Gas (test 198 mg/dL 75-115 H code = BGGLU) tHB (test code = RTHB) 12.4 gm/dL 12.2-17.4 N Hematocrit, Blood Gas (test 38.1 % 34.0-52.0 N code = BGHCT) O2Hb (test code = RO2HB) 91 80-100 N Carboxyhemoglobin (test 1.5 % 0.0-20.0 N code = CARHGB) FIO2 % (test code = FIO2) 60 % Patient Temperature (test 37.0 Degrees code = PTTEMP) Celcius Puncture Site (test code = Art line PUNSITE) Drawing Tech ID (test code ELMER FI = DRAWTECH) Lactic Acid, Blood Gas 2.1 mmol/L (test code = BGLA) iPAP (test code = IPAP) 0 cmH2O Peep (test code = RPEEP) 5 Respiratory Rate (test code 18 = RESP RATE) Tidal Volume (test code = 0.550 Liters TIDALVOL) POC Glucose, [id number] 13:33:00 Test Item Value Reference Range Interpretation Comments POC Glucose (test 154 mg/dL 70-115 H If you con senior linux systems administrator your code = POCGLUC) patient crit ically ill, the Kim Accu- Chek InformII meters hould not be used for Glu cose determinations. Draw a venous Glucose and send to the Main Lab for Analysis. Blood Gas+Lytes+Glu+Ca+Hgb+Hct+[id number] 12:30:00 Test Item Value Reference Range Interpretation Comments pH, Blood Gas (test code = 7.281 pH Units 7.35-7.45 L BGPH) pCO2 (test code = PCO2) 44.3 mm Hg 35-45 N pO2 (test code = PO2) 89.8 mm Hg 80-100 N Bicarbonate (test code = 20.9 mmol/L 22.0-26.0 LL HCO3) Base Excess (test code = BE) -5.7 mmol/L O2 Saturation (test code = 96.4 % 80.0-100.0 N O2SAT) Sodium, Blood Gas (test code 138 mmol/L 135-145 N = BGNA) Potassium, Blood Gas (test 4.2 mmol/L 3.5-4.5 N code = BGK) Chloride, Blood Gas (test 108 mmol/L 98-105 H code = BGCL) Calcium, Ionized, Blood Gas 1.19 mmol/L 1.00-1.50 N (test code = BGCAI) Glucose, Blood Gas (test 203 mg/dL 75-115 H code = BGGLU) tHB (test code = RTHB) 11.0 gm/dL 12.2-17.4 L Hematocrit, Blood Gas (test 33.6 % 34.0-52.0 L code = BGHCT) O2Hb (test code = RO2HB) 94 80-100 N Carboxyhemoglobin (test code 0.8 % 0.0-20.0 N = CARHGB) Methemoglobin (test code = 1.6 % 0.0-20.0 N METHGB) FIO2 % (test code = FIO2) 100 % Patient Temperature (test 37.0 Degrees code = PTTEMP) Celcius Puncture Site (test code = Art line PUNSITE) Drawing Tech ID (test code = DRAWTECH) Lactic Acid, Blood Gas (test 1.8 mmol/L code = BGLA) Respiratory Rate (test code 0 = RESP RATE) Blood Gas+Lytes+Glu+Ca+Hgb+Hct+[id number] 12:19:00 Test Item Value Reference Range Interpretation Comments pH, Blood Gas (test code = 7.373 pH Units 7.35-7.45 N BGPH) pCO2 (test code = PCO2) 36.3 mm Hg 35-45 N pO2 (test code = PO2) 205.0 mm Hg 80-100 HH Bicarbonate (test code = 21.1 mmol/L 22.0-26.0 LL HCO3) Base Excess (test code = BE) -3.6 mmol/L O2 Saturation (test code = 99.9 % 80.0-100.0 N O2SAT) Sodium, Blood Gas (test code 134 mmol/L 135-145 L = BGNA) Potassium, Blood Gas (test 4.3 mmol/L 3.5-4.5 N code = BGK) Chloride, Blood Gas (test 108 mmol/L 98-105 H code = BGCL) Calcium, Ionized, Blood Gas 1.20 mmol/L 1.00-1.50 N (test code = BGCAI) Glucose, Blood Gas (test 199 mg/dL 75-115 H code = BGGLU) tHB (test code = RTHB) 11.5 gm/dL 12.2-17.4 L Hematocrit, Blood Gas (test 35.4 % 34.0-52.0 N code = BGHCT) O2Hb (test code = RO2HB) 98 80-100 N Carboxyhemoglobin (test code 0.6 % 0.0-20.0 N = CARHGB) Methemoglobin (test code = 1.6 % 0.0-20.0 N METHGB) FIO2 % (test code = FIO2) 100 % Patient Temperature (test 37.0 Degrees code = PTTEMP) Celcius Puncture Site (test code = Art line PUNSITE) Drawing Tech ID (test code = dr friend DRAWTECH) Lactic Acid, Blood Gas (test 2.0 mmol/L code = BGLA) Respiratory Rate (test code 0 = RESP RATE) Blood Gas+Lytes+Glu+Ca+Hgb+Hct+[id number] 11:23:00 Test Item Value Reference Range Interpretation Comments pH, Blood Gas (test code = 7.387 pH Units 7.35-7.45 N BGPH) pCO2 (test code = PCO2) 36.5 mm Hg 35-45 N pO2 (test code = PO2) 338.0 mm Hg 80-100 HH Bicarbonate (test code = 22.0 mmol/L 22.0-26.0 N HCO3) Base Excess (test code = BE) -2.7 mmol/L O2 Saturation (test code = 100.1 % 80.0-100.0 H O2SAT) Sodium, Blood Gas (test code 134 mmol/L 135-145 L = BGNA) Potassium, Blood Gas (test 5.0 mmol/L 3.5-4.5 H code = BGK) Chloride, Blood Gas (test 106 mmol/L 98-105 H code = BGCL) Calcium, Ionized, Blood Gas 1.01 mmol/L 1.00-1.50 N (test code = BGCAI) Glucose, Blood Gas (test 209 mg/dL 75-115 H code = BGGLU) tHB (test code = RTHB) 9.1 gm/dL 12.2-17.4 L Hematocrit, Blood Gas (test 27.9 % 34.0-52.0 L code = BGHCT) O2Hb (test code = RO2HB) 98 80-100 N Carboxyhemoglobin (test code 0.8 % 0.0-20.0 N = CARHGB) Methemoglobin (test code = 1.8 % 0.0-20.0 N METHGB) FIO2 % (test code = FIO2) 100 % Patient Temperature (test 37.0 Degrees code = PTTEMP) Celcius Puncture Site (test code = Art line PUNSITE) Drawing Tech ID (test code = dr friend DRAWTECH) Lactic Acid, Blood Gas (test 1.9 mmol/L code = BGLA) Respiratory Rate (test code 0 = RESP RATE) Blood Gas+Lytes+Glu+Ca+Hgb+Hct+[id number] 10:51:00 Test Item Value Reference Range Interpretation Comments pH, Blood Gas (test code = 7.411 pH Units 7.35-7.45 N BGPH) pCO2 (test code = PCO2) 36.9 mm Hg 35-45 N pO2 (test code = PO2) 343.0 mm Hg 80-100 HH Bicarbonate (test code = 23.4 mmol/L 22.0-26.0 N HCO3) Base Excess (test code = -1.0 mmol/L BE) O2 Saturation (test code = 100.2 % 80.0-100.0 H O2SAT) Sodium, Blood Gas (test 135 mmol/L 135-145 N code = BGNA) Potassium, Blood Gas (test 4.3 mmol/L 3.5-4.5 N code = BGK) Chloride, Blood Gas (test 105 mmol/L 98-105 N code = BGCL) Calcium, Ionized, Blood Gas 1.02 mmol/L 1.00-1.50 N (test code = BGCAI) Glucose, Blood Gas (test 187 mg/dL 75-115 H code = BGGLU) tHB (test code = RTHB) 10.0 gm/dL 12.2-17.4 L Hematocrit, Blood Gas (test 30.8 % 34.0-52.0 L code = BGHCT) O2Hb (test code = RO2HB) 98 80-100 N Carboxyhemoglobin (test 0.8 % 0.0-20.0 N code = CARHGB) Methemoglobin (test code = 1.4 % 0.0-20.0 N METHGB) FIO2 % (test code = FIO2) 100 % Patient Temperature (test 37.0 Degrees code = PTTEMP) Celcius Puncture Site (test code = Art line PUNSITE) Drawing Tech ID (test code dr anne = DRAWTECH) Lactic Acid, Blood Gas 1.7 mmol/L (test code = BGLA) Respiratory Rate (test code 0 = RESP RATE) Blood Gas+Lytes+Glu+Ca+Hgb+Hct+[id number] 10:18:00 Test Item Value Reference Range Interpretation Comments pH, Blood Gas (test code = 7.414 pH Units 7.35-7.45 N BGPH) pCO2 (test code = PCO2) 39.2 mm Hg 35-45 N pO2 (test code = PO2) 435.0 mm Hg 80-100 HH Bicarbonate (test code = 25.0 mmol/L 22.0-26.0 N HCO3) Base Excess (test code = BE) 0.4 mmol/L O2 Saturation (test code = 100.2 % 80.0-100.0 H O2SAT) Sodium, Blood Gas (test code 134 mmol/L 135-145 L = BGNA) Potassium, Blood Gas (test 5.0 mmol/L 3.5-4.5 H code = BGK) Chloride, Blood Gas (test 104 mmol/L 98-105 N code = BGCL) Calcium, Ionized, Blood Gas 0.98 mmol/L 1.00-1.50 LL (test code = BGCAI) Glucose, Blood Gas (test 166 mg/dL 75-115 H code = BGGLU) tHB (test code = RTHB) 9.2 gm/dL 12.2-17.4 L Hematocrit, Blood Gas (test 28.3 % 34.0-52.0 L code = BGHCT) O2Hb (test code = RO2HB) 98 80-100 N Carboxyhemoglobin (test code 0.7 % 0.0-20.0 N = CARHGB) Methemoglobin (test code = 1.6 % 0.0-20.0 N METHGB) FIO2 % (test code = FIO2) 100 % Patient Temperature (test 37.0 Degrees code = PTTEMP) Celcius Puncture Site (test code = Art line PUNSITE) Drawing Tech ID (test code = DRAWTECH) Lactic Acid, Blood Gas (test 1.1 mmol/L code = BGLA) Respiratory Rate (test code 0 = RESP RATE) Blood Gas+Lytes+Glu+Ca+Hgb+Hct+[id number] 08:14:00 Test Item Value Reference Range Interpretation Comments pH, Blood Gas (test code = 7.432 pH Units 7.35-7.45 N BGPH) pCO2 (test code = PCO2) 36.3 mm Hg 35-45 N pO2 (test code = PO2) 307.0 mm Hg 80-100 HH Bicarbonate (test code = 24.2 mmol/L 22.0-26.0 N HCO3) Base Excess (test code = 0.2 mmol/L BE) O2 Saturation (test code = 100.2 % 80.0-100.0 H O2SAT) Sodium, Blood Gas (test 136 mmol/L 135-145 N code = BGNA) Potassium, Blood Gas (test 3.9 mmol/L 3.5-4.5 N code = BGK) Chloride, Blood Gas (test 103 mmol/L 98-105 N code = BGCL) Calcium, Ionized, Blood Gas 1.12 mmol/L 1.00-1.50 N (test code = BGCAI) Glucose, Blood Gas (test 115 mg/dL 75-115 N code = BGGLU) tHB (test code = RTHB) 12.7 gm/dL 12.2-17.4 N Hematocrit, Blood Gas (test 38.9 % 34.0-52.0 N code = BGHCT) O2Hb (test code = RO2HB) 98 80-100 N Carboxyhemoglobin (test 0.8 % 0.0-20.0 N code = CARHGB) Methemoglobin (test code = 1.1 % 0.0-20.0 N METHGB) FIO2 % (test code = FIO2) 100 % Patient Temperature (test 37.0 Degrees code = PTTEMP) Celcius Puncture Site (test code = Art line PUNSITE) Drawing Tech ID (test code DR ANNE = DRAWTECH) Lactic Acid, Blood Gas 0.7 mmol/L (test code = BGLA) Respiratory Rate (test code 0 = RESP RATE) POC Glucose, [id number] 06:06:00 Test Item Value Reference Range Interpretation Comments POC Glucose (test 92 mg/dL 70-115 N If you con senior linux systems administrator your code = POCGLUC) patient crit ically ill, the Ikm Accu- Chek InformII meters hould not be used for Glu cose determinations. Draw a venous Glucose and send to the Main Lab for Analysis. Blood Type and [id number] 09:38:00 Test Item Value Reference Range Interpretation Comments ABO type (test code = ABO) A Rh Type (test code = RH) Positive Antibody Screen - [id number] 09:38:00 Test Item Value Reference Range Interpretation Comments Antibody Screen (test code = ABSCR) Negative Lipid [id number] 07:20:00 Test Item Value Reference Range Interpretation Comments Cholesterol (test 208 mg/dL 0-200 H code = CHOL) Triglycerides (test 125 mg/dL 9-200 N code = TRIG) HDL (test code = 46 mg/dL 40-60 N HDL) Chol/HDL (test code 4.5 Ratio 0.0-5.0 N = CHOLPHDL) LDL, Calculated 137 mg/dL 0-130 H (NOTE)RISK O F HEART (test code = LDLC) DISEASEPu blished by [place] Heart AssociationAnal yte Optim al Boderline Increased RiskC HOL <200 200-239 >240TRI G <150 150-199 >200HDL Male: >60 <40HDL Female: >60 <50 LDL < 100 130-15 9 >160 LDL NEAR OPTIMAL IS 100- 129 VLDL (test code = 25 mg/dL 5-40 N VLDL) LDL/HDL (test code = 3 LDLPHDL) Basic Metabolic [id number] 07:18:00 Test Item Value Reference Range Interpretation Comments Sodium (test code = 140 mmol/L 135-145 N NA) Potassium (test 4.8 mmol/L 3.5-5.1 N code = K) Chloride (test code 103 mmol/L 98-105 N = CL) Carbon Dioxide 27 mmol/L 22-29 N (test code = CO2) Glucose (test code 96 mg/dL 70-115 N = GLU) Blood Urea Nitrogen 18 mg/dL 8-23 N (test code = BUN) Creatinine (test 1.2 mg/dL 0.7-1.2 N code = CREAT) Calcium (test code 8.9 mg/dL 8.3-10.5 N = CA) BUN/Creatinine 15.0 Ratio (test code = BCRATIO) Anion Gap (test 10 mmol/L 7-16 N code = AGAP) Estimated GFR (test >60 eGFR (es timated code = GFR) mL/min/1.73m2 Glomerular Pola tration Rate) is an est imated value,calculate d from the patient's s eileen creatinine usin g the MDRD equation.I t is NOT the patient 's actual GFR. The eGFR provides a more clinicallyusefu l measure of kidn ey disease than se rum creatinine alone.This calculation [place] es sex and race into account, if the informationis provided. If e race is not provided , and the patient isAfrican-Ameri can, multiply by 1.2 12. If sex is not prov ided, and thepatient is female, multipl y by 0.742. Results for patients <18 ye ars ofage have not been validated by e MDRD study and shoul d be interpretedwith caution.eGFR Re sult Interpretation: eGFR > or = 60 is in t he Normal RangeeGF R < 60 may mean kidney diseaseeGFR < 1 5 may mean kidney failureRange s recommended by the National Kidney Foundation,http ://nkd ep.nih.gov [place] CAROTID DUPLEX SCAN, [id number] 16:38:55CAROTID DOPPLER CLINICAL HISTORY: pre op CABG studyTECHNIQUE: Gautam-scale, color, and duplex sonography of theextracranial carotid vessels was performed. Maximum peak systolicvelocities were obtained.FINDINGS: Right side: Plaque: Mild calcified plaque in the distal common carotid artery andcarotid bulb. No flow-limiting stenosis.Peak systolic velocities (cm/sec): CCA: 124 ICA: 63.1ICA/CCA ratio: 0.51Vertebral artery: Antegrade flowLeft side: Plaque: Mild calcific plaque in the carotid bulb and proximal ICA. Noflow-limiting stenosis.Peak systolic velocities (cm/sec): CCA: 101 ICA: 69.4ICA/CCAratio: 0.69Vertebral artery: Antegrade flowIMPRESSION: 1. Right internal carotid artery: Less than50% stenosis2. Left internal carotid artery: Less than 50% stenosis3. Vertebral arteries: Antegrade flow with normal waveformsbilaterally.Society of Radiologists in Ultrasound (SRU) consensus statement(Radiology 2003; 229:340- 346. DOI 10.1148/radiol.7666018167) was used toestimate internal carotid artery stenosis.Location: [id number] 10:28:00 Test Item Value Reference Range Interpretation Comments Color (test code = COLOR) Yellow Yellow,Straw,Pl N yellow Clarity (test code = Clear Clear N CLAR) Specific [place] (test 1.014 1.001-1.035 N code = SPGR) pH (test code = PH) 5.0 5.0-9.0 N Ketone (test code = KET) Negative mg/dL Negative N Glucose (test code = Negative mg/dL Negative N GLUCUR) Protein (test code = Negative mg/dL Negative N PROT) Bilirubin (test code = Negative mg/dL Negative N BILI) Occult Blood (test code = Mod to Large Negative A UDOB) Urobilinogen (test code = 0.2 mg/dL 0.2-1.0 N UROB) Nitrite (test code = NIT) Negative Negative N Leuk Esterase (test code Negative Negative N = LEUK) Micros Exam (test code = Indicated MEXAM) Epithelial Cells (test 3-5 /LPF 0-30 A code = EPI) WBC, Urine (test code = 0-5 /HPF 0-5 N UWBC) RBC, Urine (test code = 0-3 /HPF 0-5 A URBC) Bacteria (test code = None /HPF BACT) Glycosylated [id number] 10:13:00 Test Item Value Reference Range Interpretation Comments HBA1c (test code = HBA1C) 5.2 % 4.8-5.9 N CBC with [id number] 07:21:00 Test Item Value Reference Range Interpretation Comments WBC (test code = WBC) 6.9 K/cumm 4.4-10.5 N RBC (test code = RBC) 3.80 M/cumm 4.10-5.70 L Hemoglobin (test code = HGB) 11.9 gm/dL 13.4-17.4 L Hematocrit (test code = HCT) 36.5 % 38.7-52.0 L MCV (test code = MCV) 95.9 fL 80-100 N MCH (test code = MCH) 31.2 pg 27.0-32.5 N MCHC (test code = MCHC) 32.5 g/dL 32.0-37.5 N RDW (test code = RDW) 13.6 % 11.5-14.5 N Platelet Count (test code = 229 K/cumm 140-440 N PLTCT) MPV (test code = MPV) 7.3 fL Diff Method (test code = DIFFM) Auto Neutrophil (test code = NEUT) 67.7 % 36-70 N Lymphocyte (test code = LYMPH) 19.7 % 12-44 N Monocyte (test code = MONO) 8.7 % 0-11 N Eosinophil (test code = EOS) 3.4 % 0-7 N Basophil (test code = BASO) 0.6 % 0-2 N Neutro Abs (test code = ANEUT) 4.6 K/cumm 1.6-7.4 N Lymph Abs (test code = ALYMPH) 1.4 K/cumm 0.5-4.6 N Rabun Abs (test code = AMONO) 0.6 K/cumm 0.0-1.2 N Eos Abs (test code = AEOS) 0.23 K/cumm 0.00-0.74 N Baso Abs (test code = ABASO) 0.0 K/cumm 0.00-0.21 N XR CHEST 1 [id number] 12:47:04EXAM: CHEST ONE VIEWINDICATION: Pre- opCOMPARISON: None availableTECHNIQUE: AP view of the chest.FINDINGS: The cardiomediastinal silhouette is normal. There is a cardiac pacingdevice in left chest no apparent discontinuity of the leads. The lungsare clear bilaterally. No pneumothorax or pleural effusion isidentified. The osseous structures are unremarkable.IMPRESSION: No acute cardiopulmonary process.LOCATION: R16
[2020-11-19] MEDS ORDERED: CODEINE 30MG/APAP 300MG TAB PO PRN (18:42)
[2020-11-19] MEDS ORDERED: VANCOMYCIN/NS 1 gm 1 GM/250 ML BAG IVPB SCH (19:00)
[2020-11-19 19:17] LABS: Urine Appearance CLEAR (Clear); Urine Bilirubin NEGATIVE (Negative); Urine Blood 2+ (Negative); Urine Color DK YELLOW (Yellow); Urine Glucose NEGATIVE (Negative); Urine Protein NEGATIVE (Negative); Urine pH 5.5 (5.0-7.0)
[2020-11-19] MEDS ORDERED: NA CHLORIDE 0.9% 250 ML ONE (19:35)
[2020-11-19 20:22] LABS: Urine Bacteria 20-50 /HPF (NONE SEEN)
[2020-11-19 20:23] LABS: Urine Amorphous Sediment 3+ /HPF (NONE SEEN)
[2020-11-19] MEDS: ROPINIROLE HCL 1 MG TAB PO SCH (20:47)
[2020-11-19] MEDS: AMIODARONE HCL 200 MG TAB PO SCH (20:47)
[2020-11-19] MEDS: DOCUSATE NA/SENNA CONC 1 TAB PO SCH (20:48)
[2020-11-19] MEDS: APIXABAN 2.5 MG TABLET PO SCH (20:48)
[2020-11-20] MEDS: LEVOTHYROXINE SOD 0.05 MG TABLET PO SCH (06:21)
[2020-11-20 06:22] LABS: Absolute Lymphocytes (CBC) 1.2 K/uL (0.7-4.9); Basophils % 0.6 % (0-1.3); Lymphocytes % 7.9 % (15.3-44.8); MPV 8.4 fL (7.6-11.3); RBC Red Blood Cell Count 2.76 M/uL (4.33-5.43)
[2020-11-20 06:47] LABS: Albumin 1.6 g/dL (3.4-5.0); Magnesium 2.4 mg/dL (1.8-2.4); Potassium 3.8 mmol/L (3.5-5.1); Prealbumin 10.3 mg/dL (20-40)
[2020-11-20] MEDS: POLYETHYL GLY 3350 17 GM/DOSE PO SCH (08:39)
[2020-11-20] MEDS: LIDOCAINE 4% PATCH TOP SCH (08:39)
[2020-11-20] MEDS: CRANBERRY FRUIT EXTRACT 200 MG CAP PO SCH ×2 (08:39→19:13)
[2020-11-20] MEDS: FUROSEMIDE 40 MG TABLET PO SCH ×2 (08:40→16:35)
[2020-11-20] MEDS: APIXABAN 2.5 MG TABLET PO SCH ×2 (08:40→19:14)
[2020-11-20] MEDS: PANTOPRAZOLE 40MG TABLET PO SCH (08:40)
[2020-11-20] MEDS: AMIODARONE HCL 200 MG TAB PO SCH ×2 (08:41→19:15)
[2020-11-20] MEDS: ASPIRIN EC 81 MG TAB PO SCH (08:42)
[2020-11-20] MEDS: CODEINE 30MG/APAP 300MG TAB PO PRN ×3 (08:42→19:14)
[2020-11-20 08:47] LABS: Blood Morphology Comment NOT SEEN (NOT SEEN); Platelet Estimate ADEQ
[2020-11-20] MEDS ORDERED: CEFAZOLIN SODIUM 1 GM/VIAL IVP SCH (09:00)
[2020-11-20] MEDS ORDERED: WATER FOR INJ,STERILE 10 ML IV SCH (09:00)
[2020-11-20] MEDS ORDERED: CEFAZOLIN 2 GM in NA CHLORIDE 0.9% 100 ML IVPB SCH (09:00)
[2020-11-20] MEDS: CEFAZOLIN/SWI 1gm 1 GM/10 ML SYR IV SCH ×2 (09:06→16:35)
--- NOTE | 2020-11-20 13:44 | R.HP ---
HISTORY AND PHYSICAL FACILITY: [facility] ENCOUNTER DATE AND TIME: 11/20/2020 13:40 (CDT) MR#: [id number] NAME DARYL MONTEZ ADDRESS: [address] [facility] [address] PHONE: DATE OF : 1935 AGE: 85 SSN# [id number] GENDER: Male MARITAL STATUS PRE-HOSPITAL LIVING SETTING 01 - Home (private home/apt. board/care, assisted living, fci, transitional living) PRE-HOSPITAL LIVING WITH Family/Relatives ENCOUNTER PHYSICIAN: Dr. Ria Ly REFERRING DOCTOR: kenton Patino DATE OF ADMISSION: 11/19/2020 17:42 (CDT) REFERRING FACILITY [facility] HOME TYPE AND DETAILS: Type of home: single family house # of levels in the residence: 1 # of steps within the residence: 0 # of steps to enter the residence: 0 ADMISSION DIAGNOSIS: ABSCESS OF LOWER LEG, FAILURE OF JOINT FUSION. RETAINED ORTH HARD ONSET DATE: 11/11/2020 PRIMARY DIAGNOSIS-RELATED SURGERIES: LEFT ANKLE HARDWARE HISTORY OF PRESENT ILLNESS (HPI): Pt. is a 85 yo Right-handed male. On 11/11/2020 he was admitted to [facility] with diagnosis ABSCESS OF LOWER LEG, FAILURE OF JOINT FUSI ON. RETAINED ORTH HARD. His impairment category is Orthopaedic Disorders 08 - Other Orthopaedic (08.9). Pre-morbidly, Pt. was independent/mod-I in Locomotion, Balance, Transfers Control, and Endurance; and he had good Sphincter Control. Currently, he has deficits of Transfers Control, Endurance, and Sphincter Control. Pt. is now referred to [facility] for acute in-patient rehabilitation in order to maximize patient's functional independence in activities of daily living, strength, ROM, and mobi lity. Patient has realistic goal of being discharged at assistance level 7-Ind to reside at Home with Fami ly/Relatives. MEDICATION ALLERGIES: PENICILLIN ENVIRONMENTAL ALLERGIES: - Substance Allergies None Known - Other Allergies None Known PAST MEDICAL HISTORY: AFIB hypercholestrolemia PNEUMONIA PROSTATE CANCER RENAL DISORDER STAGE 4 KIDNEY DISEASE PAST SURGICAL HISTORY: ANKLE SURGERY CORONARY ARTERY BYPASS GRAFT ARM SURGERY SOCIAL HISTORY: - Home Living Family/Relatives REVIEW OF SYSTEMS: - Gen No Chills No Fatigue No Fever - Eyes No Double Vision No itchiness - ENMT No Difficulty Swallowing - CVS No Chest Discomfort No Chest Pain No Fatigue No Weight Gain - Resp No Cough No Shortness of Breath - GI Continent No Abdominal Pain No Constipation No Diarrhea - Continent No Kidney Pain No Painful Urination No Urinary Urgency - MSK No Joint Pain No Muscle Cramps No Stiffness - Skin No Itching No Rash No Suspicious Lesions - Neuro No Coordination Difficulty No Difficulty with Concentration No Memory Loss No Seizures No Weakness - Psych No Anxiety No Depression No HIV Exposure No Persistent Infections No Seasonal Allergies - Endo No Cold/Heat Intolerance No Excessive Hunger No Excessive Thirst No Excessive Urination PHYSICAL EXAM - Gen Alert and awake Lying in bed No apparent distress Oriented to: person, time, and place - Vital Signs Temperature: 98 F SBP/DBP: 131/65 Pulse: 68 Resp: 18 Vital signs stable, afebrile - CVS RRR VITAL SIGNS Temperature: 98 F SBP/DBP: 131/65 Pulse: 68 Resp: 18 Vital signs stable, afebrile NURSING: - Shower allowing shower - Skin care per protocol PRECAUTIONS: - Weight Bearing Precaution NWB left LE ACTIVITIES OOB only with supervision QI SCORES: - Self-Care A. Eating 03-Partial/moderate assistance B. Oral hygiene 03-Partial/moderate assistance C. Toileting hygiene 03-Partial/moderate assistance E. Shower/bathe self 03-Partial/moderate assistance F. Upper body dressing 03-Partial/moderate assistance G. Lower body dressing 03-Partial/moderate assistance H. Putting on/taking off footwear 88-Not attempted due to medical condition or safety concerns - Mobility A. Roll left and right 04-Supervision or touching assistance B. Sit to lying 04-Supervision or touching assistance C. Lying to sitting on side of bed 03-Partial/moderate assistance D. Sit to stand 03-Partial/moderate assistance E. Chair/zhe-kn-uwuwj transfer 03-Partial/moderate assistance F. Toilet transfer 03-Partial/moderate assistance G. Car transfer 88-Not attempted due to medical condition or safety concerns I. Walk 10 feet 88-Not attempted due to medical condition or safety concerns J. Walk 50 feet with two turns 88-Not attempted due to medical condition or safety concerns K. Walk 150 feet 88-Not attempted due to medical condition or safety concerns L. Walking 10 feet on uneven surfaces 88-Not attempted due to medical condition or safety concerns M. 1 step (curb) 88-Not attempted due to medical condition or safety concerns N. 4 steps O. 12 steps 88-Not attempted due to medical condition or safety concerns P. Picking up object 88-Not attempted due to medical condition or safety concerns R. Wheel 50 feet with two turns 88-Not attempted due to medical condition or safety concerns S. Wheel 150 feet 88-Not attempted due to medical condition or safety concerns - Bladder and Bowel Bladder continence Bowel continence - Endurance Fair - Balance Fair - Safety Awareness Fair CURRENT FUNC. DEFICITS: Self-Care, Mobility, Endurance, Balance, and Safety Awareness MEDICATIONS: - Other See attached MAR (Medication Administration Record) ASSESSMENT: Pt. is a 85 yo Right-handed male.On 11/11/2020 he was admitted to [facility] with diagnosis ABSCESS OF LOWER LEG, FAILURE OF JOINT FUSION. RETAINED ORTH HARD.His impairment category is Orthopaedic Disord ers 08 - Other Orthopaedic (08.9).Pre-morbidly, Pt. was independent/mod-I in Locomotion, Balance, Tr ansfers Control, and Endurance; and he had good Sphincter Control.Currently, he has deficits of Trans fers Control, Endurance, and Sphincter Control.Pt. is now referred to [facility] for acute in-patient rehabilitation in order to maximize patient's functional independence in acti vities of daily living, strength, ROM, and mobility.- Rehab Goal Patient has realistic goal of being discharged at assistance level 7-Ind to reside at Home with Fami ly/Relatives. - Physical Therapy Decreased range of motion - to improve, our physical therapists will perform initial evaluation of pt 's status upon admission and devise an individualized program for increasing patient's Range of Motio n. Gait dysfunction - to improve, our physical therapists will perform initial evaluation of pt's status upon admission and devise an individualized program for Gait Training, and Wheel Chair mobility Inability to transfer - to improve, our physical therapists will perform initial evaluation of pt's s tatus upon admission and devise an individualized program for Bed mobility Need for home safety evaluation - to improve, our physical therapists will perform initial evaluation of pt's status upon admission and devise an individualized program for Home Evaluation Need in caregiver upon discharge - to improve, our physical therapists will perform initial evaluatio n of pt's status upon admission and devise an individualized program for Caregiver Training New precaution - to improve, our physical therapists will perform initial evaluation of pt's status u slim admission and devise an individualized program for Patient precaution education Poor endurance - to improve, our physical therapists will perform initial evaluation of pt's status u slim admission and devise an individualized program for Endurance Training Weakness - to improve, our physical therapists will perform initial evaluation of pt's status upon ad mission and devise an individualized program for Aquatic Therapy, Neuromuscular Reeducation, and Stre ngthening Achieving independence - to improve, our physical therapists will perform initial evaluation of pt's status upon admission and devise an individualized program for Community Reintegration Activities - Occupational Therapy Need for career technical education instructor - to improve, our occupation therapists will perform initial evaluation of pt's s tatus upon admission and devise an individualized program for Caregiver Training Weakness - to improve, our occupation therapists will perform initial evaluation of pt's status upon admission and devise an individualized program for Aquatic Therapy, Balance, Endurance, UE ROM, and U E strengthening MEDICAL PLAN: - Diet Type Start Regular - Diet - Liquid Texture Start Regular - Tube Feed Start N/A - Weight Bearing Precaution NWB left LE - Skin care per protocol - Other See attached MAR (Medication Administration Record) - Diet - Solid Texture Regular - Shower shower DISCHARGE PLAN: - Estimated Length of Stay (days) 12. - Consensus on plan Discharge plan has been discussed with primary caregiver. Patient/Family is in agreement with the berna n. Primary caregiver is in agreement with the plan. - Patient/Family Goals Return home independently. - Planned Living Setting Upon Discharge Home, to live with Family/Relatives. Transitional Living. SIGNATURE PANEL: (CDT)
[2020-11-20] MEDS ORDERED: BISACODYL 10 MG RECTAL SUPP PR PRN (18:24)
[2020-11-20] MEDS: ENSURE ENLIVE 237 ML CAN PO SCH (19:14)
[2020-11-20] MEDS: ROPINIROLE HCL 1 MG TAB PO SCH (20:05)
[2020-11-20] MEDS: DOCUSATE NA/SENNA CONC 1 TAB PO SCH (20:06)
[2020-11-21] MEDS: CEFAZOLIN/SWI 1gm 1 GM/10 ML SYR IV SCH ×3 (00:56→16:23)
[2020-11-21 06:28] LABS: Basophils % 0.3 % (0-1.3); Lymphocytes % 7.8 % (15.3-44.8); MPV 8.7 fL (7.6-11.3); RBC Red Blood Cell Count 2.74 M/uL (4.33-5.43)
[2020-11-21 06:32] LABS: Potassium 3.6 mmol/L (3.5-5.1)
[2020-11-21] MEDS: LEVOTHYROXINE SOD 0.05 MG TABLET PO SCH (06:46)
[2020-11-21] MEDS: PANTOPRAZOLE 40MG TABLET PO SCH (07:33)
[2020-11-21] MEDS: CODEINE 30MG/APAP 300MG TAB PO PRN ×2 (07:56→12:01)
[2020-11-21] MEDS: ENSURE ENLIVE 237 ML CAN PO SCH ×2 (08:00→19:56)
[2020-11-21] MEDS: POLYETHYL GLY 3350 17 GM/DOSE PO SCH (08:40)
[2020-11-21] MEDS: ASPIRIN EC 81 MG TAB PO SCH (08:40)
[2020-11-21] MEDS: CRANBERRY FRUIT EXTRACT 200 MG CAP PO SCH ×2 (08:40→19:55)
[2020-11-21] MEDS: FUROSEMIDE 40 MG TABLET PO SCH (08:41)
[2020-11-21] MEDS: APIXABAN 2.5 MG TABLET PO SCH ×2 (08:41→19:55)
[2020-11-21] MEDS: AMIODARONE HCL 200 MG TAB PO SCH ×2 (08:41→19:55)
--- NOTE | 2020-11-21 09:42 | P.CNS ---
Date of Consult: 11/21/20 Reason for Consult: CKD Requesting Physician: Carlos Webb Chief Complaint: Back Pain with generalized weakness History of Present Illness: 85 yo WM CKD presented to the [facility] for moderate, persisent back pain with generalized weakness and limited ROM following an admission at [facility] for a left ankle infection. He follows with Dr. Bolanos for CKD. No current NSAIDs. Dark urine noted at the bedside. Allergies Penicillins Allergy (Intermediate, Verified 11/20/20 02:03) Hives Home medications list reviewed: Yes Home Medications: Amiodarone HCl [Pacerone] 200 mg PO BID 11/20/20 Apixaban [Eliquis] 5 mg PO BID 11/20/20 Aspirin [Aspirin EC 81 MG] 81 mg PO DAILY 11/20/20 Meclizine HCl [Antivert] 12.5 mg PO BID 11/20/20 Ropinirole HCl [Requip] 1 mg PO BEDTIME 11/20/20 - Past Medical/Surgical History Diabetic: No -: AFib -: Hypercholesterolemia -: Pneumonia -: Prostate Ca -: Stage 4 Kidney Disease -: MOHAN Ankle surgery -: CABG -: Pacemaker -: L arm surgery - Family History Father Medical History: Other (see notes) Notes: Fell, broke hip, went into a coma before passing Mother Medical History: Heart disease Brother Medical History: Heart disease, Cancer - Social History Alcohol use: No CD- Drugs: No Caffeine use: Yes Place of Residence: Home Review of Systems 10-point ROS is otherwise unremarkable General: Weakness Musculoskeletal: Back Pain Neurological: Weakness Physical Examination Temp Pulse Resp BP Pulse Ox 97.2 F 62 18 119/53 L 95 11/21/20 06:45 11/21/20 08:41 11/21/20 08:56 11/21/20 08:41 11/21/20 08:56 General: Oriented x3, Cooperative, Moderate distress HEENT: Atraumatic Neck: Supple Respiratory: Clear to auscultation bilaterally Cardiovascular: No edema, Regular rate/rhythm Gastrointestinal: Soft and benign, Non-distended Musculoskeletal: No clubbing, No contractures Integumentary: No rashes, No cyanosis, Other (Left ankle wound) Neurological: Normal speech Laboratory Data (last 24 hrs) 11/21/20 06:00: Sodium 139, Potassium 3.6, BUN 30 H, Creatinine 1.44 H, Glucose 98 11/21/20 06:00: WBC 12.70 H D, Hgb 8.7 L, Hct 26.0 L, Plt Count 336 Conclusions/Impression: CKD III -No NSAIDs -Recommend adequate hydration -Reduce Lasix once daily -Daily weight Hypocalcemia -Start Vitamin D3 Severe Malnutrition -Start Nepro TID -Encourage nutrition Anemia in chronic illness -Monitor H&H -Consider anemia evaluation -Continue MVI with iron Constipation -Continue Miralax and Colace Left ankle wound -Continue Ancef q8h -Start probiotic TID CLBP, severe -Continue Lidocaine patch -PT as tolerated -Consider imaging as needed -Start Tizanidine prn Thank you kindly for the consultation.
[2020-11-21] MEDS: TIZANIDINE 4 MG TABLET PO PRN ×2 (09:58→19:55)
[2020-11-21] MEDS: DOCUSATE NA 100 MG CAP PO SCH ×2 (09:58→19:55)
[2020-11-21] MEDS: LIDOCAINE 4% PATCH TOP SCH (10:10)
[2020-11-21] MEDS: LACTOBACILLUS/ACIDOPHILUS TAB PO SCH ×2 (13:49→19:55)
[2020-11-21] MEDS ORDERED: NEPRO SHAKE 237 ML CAN PO SCH (14:00)
[2020-11-21] MEDS ORDERED: MAGNESIUM CITRATE 300 ML BOT PO SCH (17:00)
[2020-11-21] MEDS: ROPINIROLE HCL 1 MG TAB PO SCH (19:54)
[2020-11-22] MEDS: CEFAZOLIN/SWI 1gm 1 GM/10 ML SYR IV SCH ×3 (00:56→17:05)
[2020-11-22 06:21] LABS: Basophils % 0.3 % (0-1.3); Hematocrit 25.6 % (39.6-49.0); Lymphocytes % 8.8 % (15.3-44.8); MPV 8.6 fL (7.6-11.3); RBC Red Blood Cell Count 2.68 M/uL (4.33-5.43)
[2020-11-22 06:30] LABS: Albumin 1.5 g/dL (3.4-5.0); Magnesium 2.7 mg/dL (1.8-2.4); Potassium 3.4 mmol/L (3.5-5.1); Prealbumin 9.5 mg/dL (20-40)
[2020-11-22] MEDS: TIZANIDINE 4 MG TABLET PO PRN ×2 (06:41→19:14)
[2020-11-22] MEDS: LEVOTHYROXINE SOD 0.05 MG TABLET PO SCH (06:41)
[2020-11-22] MEDS: LIDOCAINE 4% PATCH TOP SCH (06:42)
[2020-11-22] MEDS: PANTOPRAZOLE 40MG TABLET PO SCH (07:26)
[2020-11-22] MEDS ORDERED: FUROSEMIDE 40 MG TABLET PO SCH (08:00)
[2020-11-22] MEDS ORDERED: FERROUS SULFATE 325 MG TAB PO SCH (08:00)
[2020-11-22] MEDS: ENSURE ENLIVE 237 ML CAN PO SCH ×2 (08:00→19:14)
[2020-11-22] MEDS: FE SULF/FA/VIT B COMP & C TAB PO SCH (08:33)
[2020-11-22] MEDS: ASPIRIN EC 81 MG TAB PO SCH (08:33)
[2020-11-22] MEDS: LACTOBACILLUS/ACIDOPHILUS TAB PO SCH ×3 (08:33→19:13)
[2020-11-22] MEDS: POLYETHYL GLY 3350 17 GM/DOSE PO SCH (08:33)
[2020-11-22] MEDS: AMIODARONE HCL 200 MG TAB PO SCH ×2 (08:34→19:14)
[2020-11-22] MEDS: CRANBERRY FRUIT EXTRACT 200 MG CAP PO SCH ×2 (08:34→19:13)
[2020-11-22] MEDS: APIXABAN 2.5 MG TABLET PO SCH ×2 (08:34→19:14)
[2020-11-22] MEDS: DOCUSATE NA 100 MG CAP PO SCH (08:34)
[2020-11-22] MEDS: VITAMIN D 5,000 UNIT CAP PO SCH (08:34)
--- NOTE | 2020-11-22 09:45 | P.PN ---
Date of Service: 11/22/20 Vital Signs Temp Pulse Resp BP Pulse Ox 97.1 F 59 18 109/56 L 98 11/22/20 06:42 11/22/20 08:35 11/22/20 06:42 11/22/20 08:35 11/22/20 06:42 Medications Acetaminophen/Codeine Phosphate (Codeine 30mg/Apap 300mg Tab) 1 tab PO Q4HP PRN PRN Reason: Pain scale 8-10 (Severe) Last Admin: 11/21/20 12:01 Dose: 1 tab Documented by: Amiodarone HCl (Amiodarone Hcl 200 Mg Tab) 200 mg PO BID [facility] Last Admin: 11/22/20 08:34 Dose: 200 mg Documented by: Apixaban (Apixaban 2.5 Mg Tablet) 2.5 mg PO BID [facility] Last Admin: 11/22/20 08:34 Dose: 2.5 mg Documented by: Aspirin (Aspirin Ec 81 Mg Tab) 81 mg PO DAILY [facility] Last Admin: 11/22/20 08:33 Dose: 81 mg Documented by: Bisacodyl (Bisacodyl 10 Mg Rectal Supp) 10 mg SD DAILY PRN PRN Reason: CONSTIPATION Last Admin: 11/21/20 14:00 Dose: 10 mg Documented by: Cholecalciferol (Vitamin D 5,000 Unit Cap) 5,000 unit PO DAILY [facility] Last Admin: 11/22/20 08:34 Dose: 5,000 unit Documented by: Docusate Sodium (Docusate Na 100 Mg Cap) 100 mg PO BID [facility] Last Admin: 11/22/20 08:34 Dose: 100 mg Documented by: Cefazolin Sodium (Ancef 1 Gm/10 Ml Swi Ivp) 1 gm in 10 mls @ 600 mls/hr IV Q8HR [facility] Stop: 12/26/20 09:01 Last Admin: 11/22/20 08:35 Dose: 10 mls Documented by: Albumin Human (Albumin 25%) 100 mls @ 100 mls/hr IV Q6H [facility] Stop: 11/23/20 04:59 Lactobacillus Acidoph/Bulgaricus (Lactobacillus/Acidophilus Tab) 1 tab PO TID [facility] Last Admin: 11/22/20 08:33 Dose: 1 tab Documented by: Levothyroxine Sodium (Levothyroxine Sod 0.05 Mg Tablet) 0.05 mg PO DAILYAC [facility] Last Admin: 11/22/20 06:41 Dose: 0.05 mg Documented by: Lidocaine (Lidocaine 4% Patch) 1 patch TOP DAILY [facility] Last Admin: 11/22/20 06:42 Dose: 1 patch Documented by: Multivitamins/Iron (Fe Sulf/Fa/Vit B Comp & C Tab) 1 tab PO DAILY WITH BREAKFAST [facility] Last Admin: 11/22/20 08:33 Dose: 1 tab Documented by: Nutritional Formula (Ensure Enlive 237 Ml Can) 237 ml PO BID [facility] Last Admin: 11/22/20 08:00 Dose: Not Given Documented by: Pantoprazole Sodium (Pantoprazole 40mg Tablet) 40 mg PO ACB [facility]; Protocol Last Admin: 11/22/20 07:26 Dose: 40 mg Documented by: Polyethylene Glycol (Polyethyl Gly 3350 17 Gm/Dose) 17 gm PO DAILY [facility] Last Admin: 11/22/20 08:33 Dose: 17 gm Documented by: Potassium Chloride (Potassium Cl Sa 10 Meq Tab) 10 meq PO DAILY [facility] Ropinirole HCl (Ropinirole Hcl 1 Mg Tab) 2 mg PO BEDTIME [facility] Last Admin: 11/21/20 19:54 Dose: 2 mg Documented by: Tizanidine HCl (Tizanidine 4 Mg Tablet) 4 mg PO BID PRN PRN Reason: MUSCLE SPASMS Last Admin: 11/22/20 06:41 Dose: 4 mg Documented by: Lab Results (last 24 hrs) 11/22/20 05:40: Sodium 141, Potassium 3.4 L, Chloride 103, Carbon Dioxide 33 H, BUN 35 H, Creatinine 1.51 H, Estimated GFR 44 L, Glucose 114 H, Calcium 7.6 L, Magnesium 2.7 H, Albumin 1.5 L, Prealbumin 9.5 L 11/22/20 05:40: WBC 11.80 H, RBC 2.68 L, Hgb 8.4 L, Hct 25.6 L, MCV 95.3, MCH 31.4, MCHC 32.9, RDW 15.1, Plt Count 322, MPV 8.6, Neutrophils % 81.1 H, Lymphocytes % 8.8 L, Monocytes % 8.9, Eosinophils % 0.9, Basophils % 0.3, Absolute Neutrophils 9.6 H, Absolute Lymphocytes 1.0, Absolute Monocytes 1.0, Absolute Eosinophils 0.1, Absolute Basophils 0.0 Microbiology Results 11/19/20 18:10 Clean Catch Urine [place] Count - Final No growth. 11/19/20 18:10 Clean Catch Urine - Final No growth. Assessment/ Plan: Nephrology He is not sure about his back pain until he gets out of bed CPS stable without CP or SOB No acute events overnight Vitals, medications, blood work and imaging reviewed in the chart. General: Oriented x3, Cooperative, No distress HEENT: Atraumatic Neck: Supple Respiratory: Clear to auscultation bilaterally Cardiovascular: No edema, Regular rate/rhythm Gastrointestinal: Soft and benign, Non-distended Musculoskeletal: No clubbing, No contractures Integumentary: No rashes, No cyanosis, Other (Left ankle wound) Neurological: Normal speech Laboratory Data (last 24 hrs) 11/21/20 06:00: Sodium 139, Potassium 3.6, BUN 30 H, Creatinine 1.44 H, Glucose 98 11/21/20 06:00: WBC 12.70 H D, Hgb 8.7 L, Hct 26.0 L, Plt Count 336 Conclusions/Impression: RUY/ CKD III -No NSAIDs -Recommend adequate hydration -Hold Lasix at this time. Give IV Albumin -Daily weight Hypokalemia -Replete with oral potassium Hypocalcemia -Continue Vitamin D3 Severe Malnutrition -Continue Protein supplementation -Encourage nutrition -IV Albumin 25g q6 X4 doses Anemia in chronic illness -Monitor H&H -Anemia evaluation -Continue MVI with iron Constipation -Continue Miralax and Colace Left ankle wound -Continue Ancef q8h -Continue probiotic TID CLBP, severe -Continue Lidocaine patch -PT as tolerated -Consider imaging as needed -Tizanidine prn
[2020-11-22] MEDS: ALBUMIN HUMAN 25% 100 ML IV SCH ×3 (09:58→21:43)
[2020-11-22] MEDS: POTASSIUM CL SA 10 MEQ TAB PO SCH (09:58)
[2020-11-22] MEDS: CODEINE 30MG/APAP 300MG TAB PO PRN (10:56)
--- NOTE | 2020-11-22 12:09 | RAD REPORT ---
EXAM DESCRIPTION: RAD - Lumbar Spine 3 Views - 11/22/2020 12:01 pm CLINICAL HISTORY: Back pain FINDINGS: Slight anterior subluxation L4 on L5. Marked spondylosis L5-S1 consisting of disc space narrowing, osteophytes subchondral sclerosis. 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 Mild to moderate spondylosis the remainder lumbar spine Bones are osteoporotic No fracture or dislocation seen
[2020-11-22] MEDS: GABAPENTIN 300 MG CAP PO SCH ×2 (14:23→19:14)
[2020-11-22] MEDS ORDERED: DOCUSATE NA 100 MG CAP PO PRN (14:59)
[2020-11-22] MEDS ORDERED: POLYETHYL GLY 3350 17 GM/DOSE PO PRN (15:01)
--- NOTE | 2020-11-22 17:55 | PAPE ---
POST ADMISSION PHYSICIAN EVALUATION PATIENT: [facility] MR# [id number] REFERRING DOCTOR kenton Patino EVALUATION DATE AND TIME 11/22/2020 17:34 (CDT) NAME DARYL MONTEZ DATE OF 1935 AGE 85 PHONE SSN# [id number] GENDER male EVALUATING PHYSICIAN Dr. Carlos Webb M.D. ADMISSION DIAGNOSIS: ABSCESS OF LOWER LEG, FAILURE OF JOINT FUSION. RETAINED ORTH HARD ONSET DATE 11/11/2020 POST-ADMISSION FUNCTIONAL/MEDICAL STATUS: - Bladder Same accident frequency: 7-Ind - No accidents in the past 7 days - Bowel Same accident frequency: 7-Ind - No accidents in the past 7 days - Walking Same score based on distance walked: 0(N/A) Same score based on distance walked: 1(<=50ft) - Wheelchair Same score based on distance traveled: 0(N/A) STATUS CHANGE EVALUATION: No change in Functional or Medical Status is identified compared with Pre-Admission screening. PATIENT NEEDS CLOSE MEDICAL SUPERVISION BY A REHABILITATION PHYSICIAN FOR: Coordination of Treatment Team PATIENT REQUIRES 24X7 REHAB NURSING FOR MEDICAL AND FUNCTIONAL MGT. OF THE FOLLOWING DEFICITS: Disease Management Medication Management Patient/Family Education Providing Safe Environment PATIENT REQUIRES INTENSIVE, COORDINATED INTERDISCIPLINARY APPROACH TO REHAB: Arranging Home Equipment/Services Discharge Planning Family Intervention/Training Director Of Financial Aid/Case Management LIST OF IDENTIFIED AND POTENTIAL PROBLEMS: Alteration in leisure activities Bladder, Incontinence Bowel, Incontinence Infection, Actual or Potential Mobility Impaired Pain, Alteration in Comfort Self Care Deficit Skin Integrity, Actual or Potential Urinary Tract Infection (UTI), Actual or Potential RISK FOR COMPLICATIONS - N/A CELLULITIS OF THE LEFT ANKLE. RETAINED ORTHOPEDIC HARDWARE. FAILURE OF JOINT FUSION. SEPTIC ARTHRITIS OF LEFT ANKLE. OSTEOMYELITIS OF LEFT FIBULA. PATIENT COULD BE AT RISK FOR COMPLICATIONS FROM ADVERSE MEDICAL CONDITIONS DUE TO HIS/HER COMORBIDITI ES AND THE RIGORS OF THE INTENSIVE REHABILLITATION PROGRAM. METHODS OR INTERVENTIONS TO AVOID COMPLIC ATIONS INCLUDE: - Infection Clinical staff to assess and manage the signs and symptoms of infection including fever, redness, war mth, etc. - Urinary Tract Infection - Falls Patient will be evaluated for Fall Precautions and will be placed on Fall Precautions as indicated pe r protocol. - Skin Breakdown Nursing will assess skin daily using assessment tool and will place on Skin Breakdown Precautions as indicated per protocol. - Pain Clinical staff may employ non-medication methods such as massage, distraction, decrease stimulus, etc . as needed. Clinical staff will assess patient's pain level every shift per protocol to assess and e nsure pain management effectiveness. Medications will be given and the pain level re-assessed. PRELIMINARY PLAN OF CARE: - Physical Therapy Patient needs Physical Therapy for a daily minimum of 1.5 hours at least 5 out of 7 days, to improve: Mobility, Strengthening, Transfers, Stretching, ROM, Endurance, Ability to manage stairs, Gait, and Balance. - Speech Therapy Patient needs Speech Therapy for a daily minimum of 0.5 hours at least 5 out of 7 days, to improve: S wallowing, Cognition, Language Skills, and Compensatory Strategies. - Rehabilitation Nursing Patient requires 24x7 Rehabilitation Nursing for: Pain Issues, Identifying and preventing risk factor s, Monitoring and reporting current medical conditions, Assisting with ambulation and transfer, Cory ting with all ADL-s, Teaching patients about disease process and medications, Family teaching, Provid ing safe environment, Bowel and Bladder Issues, Skin Integrity, and Medication Management. Patient needs Director Of Financial Aid and/or Case Management for: Discharge Planning, Arranging Home Equipmen t or Services, and Family Interventions. - Dietary and Nutrition Services Patient needs Dietary and Nutrition Services for: Adequate Nutrition, Nutritional Supplements, and Nu tritional Education. - Occupational Therapy Patient needs Occupational Therapy for a daily minimum of 1.5 hours at least 5 out of 7 days, to impr ove Activities of Daily Living, including: Eating, Grooming, Bathing, Dressing, Toileting, Toilet Tra nsfers, Community Reintegration, Higher functional activities, Adaptive Equipment, Splinting, Househo ld Tasks, and Other activities as determined. QI SCORES: - Self-Care A. Eating 03-Partial/moderate assistance B. Oral hygiene 03-Partial/moderate assistance C. Toileting hygiene 03-Partial/moderate assistance E. Shower/bathe self 03-Partial/moderate assistance F. Upper body dressing 03-Partial/moderate assistance G. Lower body dressing 03-Partial/moderate assistance H. Putting on/taking off footwear 88-Not attempted due to medical condition or safety concerns - Mobility A. Roll left and right 04-Supervision or touching assistance B. Sit to lying 04-Supervision or touching assistance C. Lying to sitting on side of bed 03-Partial/moderate assistance D. Sit to stand 03-Partial/moderate assistance E. Chair/[id number] transfer 03-Partial/moderate assistance F. Toilet transfer 03-Partial/moderate assistance G. Car transfer 88-Not attempted due to medical condition or safety concerns I. Walk 10 feet 88-Not attempted due to medical condition or safety concerns J. Walk 50 feet with two turns 88-Not attempted due to medical condition or safety concerns K. Walk 150 feet 88-Not attempted due to medical condition or safety concerns L. Walking 10 feet on uneven surfaces 88-Not attempted due to medical condition or safety concerns M. 1 step (curb) 88-Not attempted due to medical condition or safety concerns N. 4 steps O. 12 steps 88-Not attempted due to medical condition or safety concerns P. Picking up object 88-Not attempted due to medical condition or safety concerns R. Wheel 50 feet with two turns 88-Not attempted due to medical condition or safety concerns S. Wheel 150 feet 88-Not attempted due to medical condition or safety concerns - Bladder and Bowel Bladder continence Bowel continence - Endurance Fair - Balance Fair - Safety Awareness Fair POTENTIAL FUNCTIONAL GOALS FOR PATIENT TO ACHIEVE BY DISCHARGE: - Safety Precaution Patient will remain free from falls or injury at time of discharge. - Bed Mobility Patient will perform bed mobility at 4-Thomas level of assistance. - Transfers Patient will complete transfers from bed to chair at 4-Thomas level of assistance. - Mobility Patient will ambulate 150 ft with 4-Thomas level of assistance with RW. PATIENT REHAB POTENTIAL Robyn MONTEZ is able and expected to receive 3 hours of individualized therapy daily on at least 5 of ev alfredo 7 days Robyn MONTEZ's prognosis for significant practical improvement within a reasonable period of time appear s Good Expected level of measurable improvement will be of a practical value to Robyn MONTEZ's functional capac ity or adaptations to impairments Has a viable Discharge Plan Medically appropriate; condition is sufficiently stable to participate in intensive rehab program DISCHARGE PLAN: - Estimated Length of Stay (days) 12. - Consensus on plan Discharge plan has been discussed with primary caregiver. Patient/Family is in agreement with the berna n. Primary caregiver is in agreement with the plan. - Patient/Family Goals Return home independently. - Planned Living Setting Upon Discharge Home, to live with Family/Relatives. Transitional Living. CONCLUSION ON REHABILITATION NECESSITY: I have evaluated patient's pre-admission functional status and, comparing it to the patient's post-ad mission functional status now, I conclude that the pre-admission assessment was accurate. Patient's c ondition on admission supports the medical necessity of admission to IRF. It is safe to proceed with patient's therapy program. SIGNATURE PANEL: (CDT)
--- NOTE | 2020-11-22 18:08 | R.PN ---
PROGRESS NOTES ENCOUNTER DATE AND TIME: 11/22/2020 17:54 (CDT) NAME DARYL MONTEZ DATE OF : 1935 DATE OF ADMISSION: 11/19/2020 17:42 (CDT) ABSCESS OF LOWER LEG, FAILURE OF JOINT FUSION. RETAINED ORTH HARDCHIEF COMPLAINT: Left leg abscess SUBJECTIVE: Pt denied any depression. Pt denied any Shortness of Breath. VITAL SIGNS Temperature: 97.1 F SBP/DBP: 109/56 Pulse: 59 Resp: 16 MEDICATION ALLERGIES: PENICILLIN ENVIRONMENTAL ALLERGIES: - Substance Allergies None Known - Other Allergies None Known NURSING: - Shower allowing shower - Skin care per protocol PRECAUTIONS: - Weight Bearing Precaution NWB left LE ACTIVITIES OOB only with supervision THERAPIES: - Dietary and Nutrition Adequate Nutrition. Nutritional Education. Nutritional Supplements. PHYSICAL EXAM - Gen Alert and awake Lying in bed No apparent distress Oriented to: person, time, and place - Skin Left leg bandage in place with good hemostasis. Chronic left facial and neck surgery. - Eyes No abnormalities - ENMT Mild dysarthria - Neck Chronic left neck surgery. - CVS RRR - Chest No abnormalities - Abd + bowel sounds - GI Soft Deferred - No abnormalities - Ext Left leg surgical site has good hemostasis. - MSK 4/5 weakness in the left lower extremity. - Neuro 4/5 strength left lower extremities. - Psych No abnormalities ASSESSMENT: Pt. is a 85 yo Right-handed male.On 11/11/2020 he was admitted to [facility] with diagnosis ABSCESS OF LOWER LEG, FAILURE OF JOINT FUSION. RETAINED ORTH HARD.His impairment category is Orthopaedic Disord ers 08 - Other Orthopaedic (08.9).Pre-morbidly, Pt. was independent/mod-I in Locomotion, Balance, Tr ansfers Control, and Endurance; and he had good Sphincter Control.Currently, he has deficits of Trans fers Control, Endurance, and Sphincter Control.Pt. is now referred to [facility] for acute in-patient rehabilitation in order to maximize patient's functional independence in acti vities of daily living, strength, ROM, and mobility.- Rehab Goal Patient has realistic goal of being discharged at assistance level 7-Ind to reside at Home with Fami ly/Relatives. MDM/PLAN: - Physical Therapy Decreased range of motion - to improve, our physical therapists will perform initial evaluation of p t's status upon admission and devise an individualized program for increasing patient's Range of Paul on. Gait dysfunction - to improve, our physical therapists will perform initial evaluation of pt's statu s upon admission and devise an individualized program for Gait Training, and Wheel Chair mobility Inability to transfer - to improve, our physical therapists will perform initial evaluation of pt's status upon admission and devise an individualized program for Bed mobility Need for home safety evaluation - to improve, our physical therapists will perform initial evaluatio n of pt's status upon admission and devise an individualized program for Home Evaluation Need in caregiver upon discharge - to improve, our physical therapists will perform initial evaluati on of pt's status upon admission and devise an individualized program for Caregiver Training New precaution - to improve, our physical therapists will perform initial evaluation of pt's status upon admission and devise an individualized program for Patient precaution education Poor endurance - to improve, our physical therapists will perform initial evaluation of pt's status upon admission and devise an individualized program for Endurance Training Weakness - to improve, our physical therapists will perform initial evaluation of pt's status upon a dmission and devise an individualized program for Aquatic Therapy, Neuromuscular Reeducation, and Str engthening Achieving independence - to improve, our physical therapists will perform initial evaluation of pt's status upon admission and devise an individualized program for Community Reintegration Activities - Occupational Therapy Need for child adolescent care - to improve, our occupation therapists will perform initial evaluation of pt's status upon admission and devise an individualized program for Caregiver Training Weakness - to improve, our occupation therapists will perform initial evaluation of pt's status upon admission and devise an individualized program for Aquatic Therapy, Balance, Endurance, UE ROM, and UE strengthening - Other See attached MAR (Medication Administration Record) - Diet Type Continue Regular - Diet - Liquid Texture Continue Regular - Tube Feed Continue N/A - Weight Bearing Precaution NWB left LE - Skin care per protocol - Diet - Solid Texture Continue Regular - Shower allowing shower FUNCTIONAL STATUS: UPDATED AT WEEKLY TEAM CONFERENCE - Bladder Same accident frequency: 7-Ind - No accidents in the past 7 days - Bowel Same accident frequency: 7-Ind - No accidents in the past 7 days - Walking Same score based on distance walked: 0(N/A) Same score based on distance walked: 1(<=50ft) - Wheelchair Same score based on distance traveled: 0(N/A) FUNCTIONAL STATUS: - Self-Care A. Eating Romina B. Grooming sup C. Bathing modA D. Dressing - Upper Thomas E. Dressing - Lower modA F. Toileting modA - Sphincter Control G. Bladder control Thomas H. Bowel control Thomas - Transfers Control I. Bed/Chair/Wheelchair maxA J. Toilet maxA K. Tub/Shower maxA - Locomotion L. Walk/Wheelchair (B) modA M. Stairs ADNO - Communication N. Comprehension (B) Romina O. Expression (B) Romina - Social Cognition P. Social Interaction Ind Q. Problem Solving Romina R. Memory Romina - Endurance Poor - Balance Poor - Safety Awareness Fair QI SCORES: - Self-Care A. Eating 03-Partial/moderate assistance B. Oral hygiene 03-Partial/moderate assistance C. Toileting hygiene 03-Partial/moderate assistance E. Shower/bathe self 03-Partial/moderate assistance F. Upper body dressing 03-Partial/moderate assistance G. Lower body dressing 03-Partial/moderate assistance H. Putting on/taking off footwear 88-Not attempted due to medical condition or safety concerns - Mobility A. Roll left and right 04-Supervision or touching assistance B. Sit to lying 04-Supervision or touching assistance C. Lying to sitting on side of bed 03-Partial/moderate assistance D. Sit to stand 03-Partial/moderate assistance E. Chair/qzz-fr-ifmpb transfer 03-Partial/moderate assistance F. Toilet transfer 03-Partial/moderate assistance G. Car transfer 88-Not attempted due to medical condition or safety concerns I. Walk 10 feet 88-Not attempted due to medical condition or safety concerns J. Walk 50 feet with two turns 88-Not attempted due to medical condition or safety concerns K. Walk 150 feet 88-Not attempted due to medical condition or safety concerns L. Walking 10 feet on uneven surfaces 88-Not attempted due to medical condition or safety concerns M. 1 step (curb) 88-Not attempted due to medical condition or safety concerns N. 4 steps O. 12 steps 88-Not attempted due to medical condition or safety concerns P. Picking up object 88-Not attempted due to medical condition or safety concerns R. Wheel 50 feet with two turns 88-Not attempted due to medical condition or safety concerns S. Wheel 150 feet 88-Not attempted due to medical condition or safety concerns - Bladder and Bowel Bladder continence Bowel continence - Endurance Fair - Balance Fair - Safety Awareness Fair CURRENT [facility]. DEFICITS: Self-Care, Mobility, Endurance, Balance, and Safety Awareness SIGNATURE PANEL: (CDT)
[2020-11-22] MEDS: ROPINIROLE HCL 1 MG TAB PO SCH (19:13)
[2020-11-23] MEDS: CEFAZOLIN/SWI 1gm 1 GM/10 ML SYR IV SCH ×3 (00:15→16:49)
[2020-11-23] MEDS: ALBUMIN HUMAN 25% 100 ML IV SCH (03:33)
[2020-11-23 06:39] LABS: Absolute Lymphocytes (CBC) 0.9 K/uL (0.7-4.9); Basophils % 0.5 % (0-1.3); Hematocrit 21.9 % (39.6-49.0); Lymphocytes % 8.8 % (15.3-44.8); MPV 8.6 fL (7.6-11.3); RBC Red Blood Cell Count 2.31 M/uL (4.33-5.43)
[2020-11-23] MEDS: LEVOTHYROXINE SOD 0.05 MG TABLET PO SCH (06:58)
[2020-11-23 07:50] LABS: Albumin 2.7 g/dL (3.4-5.0); Bilirubin Total 0.6 mg/dL (0.2-1.0); Ferritin 286.6 ng/mL (26-388); Phosphorus 3.1 mg/dL (2.5-4.9); Potassium 3.6 mmol/L (3.5-5.1); Protein, Total 6.1 g/dL (6.4-8.2); Uric Acid 4.9 mg/dL (3.5-7.2)
[2020-11-23] MEDS: ENSURE ENLIVE 237 ML CAN PO SCH ×2 (08:00→20:19)
[2020-11-23] MEDS: CODEINE 30MG/APAP 300MG TAB PO PRN ×2 (08:34→12:22)
[2020-11-23] MEDS: GABAPENTIN 300 MG CAP PO SCH ×2 (08:34→20:19)
[2020-11-23] MEDS: ASPIRIN EC 81 MG TAB PO SCH (08:34)
[2020-11-23] MEDS: CRANBERRY FRUIT EXTRACT 200 MG CAP PO SCH ×2 (08:34→20:18)
[2020-11-23] MEDS: FE SULF/FA/VIT B COMP & C TAB PO SCH (08:34)
[2020-11-23] MEDS: POTASSIUM CL SA 10 MEQ TAB PO SCH (08:34)
[2020-11-23] MEDS: VITAMIN D 5,000 UNIT CAP PO SCH (08:34)
[2020-11-23] MEDS: LACTOBACILLUS/ACIDOPHILUS TAB PO SCH ×3 (08:34→20:19)
[2020-11-23] MEDS: APIXABAN 2.5 MG TABLET PO SCH ×2 (08:34→20:18)
[2020-11-23] MEDS: AMIODARONE HCL 200 MG TAB PO SCH ×2 (08:35→20:18)
[2020-11-23] MEDS: LIDOCAINE 4% PATCH TOP SCH (08:35)
[2020-11-23] MEDS: PANTOPRAZOLE 40MG TABLET PO SCH (08:36)
--- NOTE | 2020-11-23 09:52 | P.RH.PN ---
Estimated Length of Stay: 16 Expected Discharge Date: 12/04/20 Discharge Disposition Plan: Home Family Support: Yes Intermediate Goal: Mobility, Transfers, Self Care Vital Signs: Last Vital Signs Temp 97.2 F 11/23/20 06:50 Pulse 66 11/23/20 06:50 Resp 18 11/23/20 08:34 BP 127/63 11/23/20 06:50 Pulse Ox 96 11/23/20 08:34 Laboratory: Laboratory Last Values WBC 10.10 K/uL (4.3-10.9) D 11/23/20 06:20 RBC 2.31 M/uL (4.33-5.43) L 11/23/20 06:20 Hgb 7.3 g/dL (13.6-17.9) L 11/23/20 06:20 Hct 21.9 % (39.6-49.0) L 11/23/20 06:20 MCV 94.8 fL (80-100) 11/23/20 06:20 MCH 31.8 pg (27.0-35.0) 11/23/20 06:20 MCHC 33.5 g/dL (32.0-36.0) 11/23/20 06:20 RDW 15.0 % (12.1-15.2) 11/23/20 06:20 Plt Count 263 K/uL (152-406) 11/23/20 06:20 MPV 8.6 fL (7.6-11.3) 11/23/20 06:20 Neutrophils % 79.9 % (41.7-73.7) H 11/23/20 06:20 Lymphocytes % 8.8 % (15.3-44.8) L 11/23/20 06:20 Monocytes % 9.6 % (3.3-12.3) 11/23/20 06:20 Eosinophils % 1.2 % (0-4.4) 11/23/20 06:20 Basophils % 0.5 % (0-1.3) 11/23/20 06:20 Absolute Neutrophils 8.1 K/uL (1.8-8.0) H 11/23/20 06:20 Segmented Neutrophils 82 % (40-80) H 11/20/20 06:12 Band Neutrophils 1 % (0-1) 11/20/20 06:12 Absolute Lymphocytes 0.9 K/uL (0.7-4.9) 11/23/20 06:20 Lymphocytes 10 % (15-42) L 11/20/20 06:12 Monocytes 6 % (0-10) 11/20/20 06:12 Absolute Monocytes 1.0 K/uL (0.1-1.3) 11/23/20 06:20 Absolute Eosinophils 0.1 K/uL (0-0.5) 11/23/20 06:20 Absolute Basophils 0.1 K/uL (0-0.5) 11/23/20 06:20 Metamyelocytes 1 % (0-0) H 11/20/20 06:12 Platelet Estimate Adeq 11/20/20 06:12 Morphology Comment Not seen (NOT SEEN) 11/20/20 06:12 Sodium 140 mmol/L (136-145) 11/23/20 06:20 Potassium 3.6 mmol/L (3.5-5.1) 11/23/20 06:20 Chloride 104 mmol/L (98-107) 11/23/20 06:20 Carbon Dioxide 31 mmol/L (21-32) 11/23/20 06:20 BUN 33 mg/dL (7-18) H 11/23/20 06:20 Creatinine 1.50 mg/dL (0.55-1.3) H 11/23/20 06:20 Estimated GFR 44 mL/min (=/>90) L 11/23/20 06:20 Glucose 102 mg/dL (74-106) 11/23/20 06:20 POC Glucose 110 mg/dL (65-120) 11/22/20 18:50 Uric Acid 4.9 mg/dL (3.5-7.2) 11/23/20 06:20 Calcium 7.7 mg/dL (8.5-10.1) L 11/23/20 06:20 Phosphorus 3.1 mg/dL (2.5-4.9) 11/23/20 06:20 Magnesium 2.7 mg/dL (1.8-2.4) H 11/22/20 05:40 Iron 12.0 ug/dL (65-175) L 11/23/20 06:20 TIBC 139 ug/dL (250-460) L 11/23/20 06:20 Transferrin 99 mg/dL (200-360) L 11/23/20 06:20 Transferrin % Sat 8.6 % (20.0-50.0) L 11/23/20 06:20 Ferritin 286.6 ng/mL (26-388) 11/23/20 06:20 Total Bilirubin 0.6 mg/dL (0.2-1.0) 11/23/20 06:20 AST 20 U/L (15-37) 11/23/20 06:20 ALT 11 U/L (12-78) L 11/23/20 06:20 Alkaline Phosphatase 92 U/L (45-117) 11/23/20 06:20 Serum Total Protein 6.1 g/dL (6.4-8.2) L 11/23/20 06:20 Albumin 2.7 g/dL (3.4-5.0) L D 11/23/20 06:20 Globulin 3.4 g/dL (2.3-3.5) 11/23/20 06:20 Albumin/Globulin Ratio 0.8 (1.1-1.8) L 11/23/20 06:20 Prealbumin 9.5 mg/dL (20-40) L 11/22/20 05:40 Vitamin B12 500 pg/mL (193-986) 11/23/20 06:20 Serum Folate 12.0 ng/mL (3.1-17.5) 11/23/20 06:20 Urine Color Dk yellow (Yellow) 11/19/20 18:10 Urine Appearance Clear (Clear) 11/19/20 18:10 Urine pH 5.5 (5.0-7.0) 11/19/20 18:10 Ur Specific [place] 1.020 (1.005-1.030) 11/19/20 18:10 Glucose (UA)(Auto) Negative (Negative) 11/19/20 18:10 Urine Ketones Trace (Negative) H 11/19/20 18:10 Urine Blood 2+ (Negative) H 11/19/20 18:10 Urine Nitrite Negative (Negative) 11/19/20 18:10 Urine Bilirubin Negative (Negative) 11/19/20 18:10 Urine Urobilinogen 1.0 mg/dL (0.2-1.0) 11/19/20 18:10 Ur Leukocyte Esterase Negative (Negative) 11/19/20 18:10 Urine RBC 10-20 /HPF (NONE SEEN) H 11/19/20 18:10 Urine WBC 5-10 /HPF (<5) H 11/19/20 18:10 Ur Squamous Epith Cells 5-10 /HPF (NONE SEEN) H 11/19/20 18:10 Amorphous Sediment 3+ /HPF (NONE SEEN) H 11/19/20 18:10 Urine Bacteria 20-50 /HPF (NONE SEEN) H 11/19/20 18:10 Hyaline Casts 0-5 /LPF (NONE SEEN) 11/19/20 18:10 Urine Culture Reflexed Not needed 11/19/20 18:10 Urine Total Protein Negative (Negative) 11/19/20 18:10 Vancomycin Trough Cancelled 11/20/20 06:00 Weight: 199 lb 3.2 oz Wound Present: No Closed Surgical Incision Present: Yes Negative Pressure Wound Therapy Present: No Physician Update: Labs reviewed and are stable. He can do the transfers with standby assistance. Standby assistance with bathing. Moderate assistance with lower body dressing. Summary: Patient's care plan and terminal carman goals have been reviewed and revised as necessary. Please see the Rehabilitation Signature page for all necessary signatures.
[2020-11-23] MEDS ORDERED: LIDOCAINE 4% PATCH TOP ONE (13:36)
--- NOTE | 2020-11-23 16:27 | P.PN ---
Date of Service: 11/23/20 Vital Signs Temp Pulse Resp BP Pulse Ox 97.2 F 66 18 127/63 96 11/23/20 06:50 11/23/20 06:50 11/23/20 13:22 11/23/20 06:50 11/23/20 13:22 Medications Acetaminophen/Codeine Phosphate (Codeine 30mg/Apap 300mg Tab) 1 tab PO Q4HP PRN PRN Reason: Pain scale 8-10 (Severe) Last Admin: 11/23/20 12:22 Dose: 1 tab Documented by: Amiodarone HCl (Amiodarone Hcl 200 Mg Tab) 200 mg PO BID [facility] Last Admin: 11/23/20 08:35 Dose: 200 mg Documented by: Apixaban (Apixaban 2.5 Mg Tablet) 2.5 mg PO BID [facility] Last Admin: 11/23/20 08:34 Dose: 2.5 mg Documented by: Aspirin (Aspirin Ec 81 Mg Tab) 81 mg PO DAILY [facility] Last Admin: 11/23/20 08:34 Dose: 81 mg Documented by: Bisacodyl (Bisacodyl 10 Mg Rectal Supp) 10 mg [place] DAILY PRN PRN Reason: CONSTIPATION Last Admin: 11/21/20 14:00 Dose: 10 mg Documented by: Cholecalciferol (Vitamin D 5,000 Unit Cap) 5,000 unit PO DAILY [facility] Last Admin: 11/23/20 08:34 Dose: 5,000 unit Documented by: Docusate Sodium (Docusate Na 100 Mg Cap) 100 mg PO BID PRN PRN Reason: CONSTIPATION Gabapentin (Gabapentin 300 Mg Cap) 300 mg PO BID [facility] Last Admin: 11/23/20 08:34 Dose: 300 mg Documented by: Cefazolin Sodium (Ancef 1 Gm/10 Ml Swi Ivp) 1 gm in 10 mls @ 600 mls/hr IV Q8HR [facility] Stop: 12/26/20 09:01 Last Admin: 11/23/20 09:43 Dose: 10 mls Documented by: Ferric Sodium Gluconate Complex 125 mg/ Sodium Chloride 110 mls @ 100 mls/hr IV DAILY [facility] Stop: 11/30/20 09:05 Lactobacillus Acidoph/Bulgaricus (Lactobacillus/Acidophilus Tab) 1 tab PO TID [facility] Last Admin: 11/23/20 14:08 Dose: 1 tab Documented by: Levothyroxine Sodium (Levothyroxine Sod 0.05 Mg Tablet) 0.05 mg PO DAILYAC [facility] Last Admin: 11/23/20 06:58 Dose: 0.05 mg Documented by: Lidocaine (Lidocaine 4% Patch) 2 patch TOP DAILY [facility] Last Admin: 11/23/20 08:35 Dose: 2 patch Documented by: Multivitamins/Iron (Fe Sulf/Fa/Vit B Comp & C Tab) 1 tab PO DAILY WITH BREAKFAST [facility] Last Admin: 11/23/20 08:34 Dose: 1 tab Documented by: Nutritional Formula (Ensure Enlive 237 Ml Can) 237 ml PO BID [facility] Last Admin: 11/23/20 08:00 Dose: Not Given Documented by: Pantoprazole Sodium (Pantoprazole 40mg Tablet) 40 mg PO ACB [facility]; Protocol Last Admin: 11/23/20 08:36 Dose: 40 mg Documented by: Polyethylene Glycol (Polyethyl Gly 3350 17 Gm/Dose) 17 gm PO DAILY PRN PRN Reason: CONSTIPATION Potassium Chloride (Potassium Cl Sa 10 Meq Tab) 10 meq PO DAILY [facility] Last Admin: 11/23/20 08:34 Dose: 10 meq Documented by: Ropinirole HCl (Ropinirole Hcl 1 Mg Tab) 2 mg PO BEDTIME [facility] Last Admin: 11/22/20 19:13 Dose: 2 mg Documented by: Sodium Chloride (Sodium Chloride 0.9% 10ml Inj) 10 ml IV BID [facility] Tizanidine HCl (Tizanidine 4 Mg Tablet) 4 mg PO BID PRN PRN Reason: MUSCLE SPASMS Last Admin: 11/22/20 19:14 Dose: 4 mg Documented by: Lab Results (last 24 hrs) 11/23/20 06:20: Sodium 140, Potassium 3.6, Chloride 104, Carbon Dioxide 31, BUN 33 H, Creatinine 1.50 H, Estimated GFR 44 L, Glucose 102, Uric Acid 4.9, Calcium 7.7 L, Phosphorus 3.1, Iron 12.0 L, TIBC 139 L, Transferrin 99 L, Transferrin % Sat 8.6 L, Ferritin 286.6, Total Bilirubin 0.6, AST 20, ALT 11 L, Alkaline Phosphatase 92, Serum Total Protein 6.1 L, Albumin 2.7 L D, Globulin 3.4, Albumin/Globulin Ratio 0.8 L, Vitamin B12 500, Serum Folate 12.0 11/23/20 06:20: WBC 10.10 D, RBC 2.31 L, Hgb 7.3 L, Hct 21.9 L, MCV 94.8, MCH 31.8, MCHC 33.5, RDW 15.0, Plt Count 263, MPV 8.6, Neutrophils % 79.9 H, Lymp hocytes % 8.8 L, Monocytes % 9.6, Eosinophils % 1.2, Basophils % 0.5, Absolute Neutrophils 8.1 H, Absolute Lymphocytes 0.9, Absolute Monocytes 1.0, Absolute Eosinophils 0.1, Absolute Basophils 0.1 11/22/20 18:50: POC Glucose 110 Microbiology Results 11/19/20 18:10 Clean Catch Urine [place] Count - Final No growth. 11/19/20 18:10 Clean Catch Urine - Final No growth. Assessment/ Plan: Nephrology Feeling better today. Darker urine. CPS stable without CP or SOB No acute events overnight Vitals, medications, blood work and imaging reviewed in the chart. General: Oriented x3, Cooperative, No distress HEENT: Atraumatic Neck: Supple Respiratory: Clear to auscultation bilaterally Cardiovascular: No edema, Regular rate/rhythm Gastrointestinal: Soft and benign, Non-distended Musculoskeletal: No clubbing, No contractures Integumentary: No rashes, No cyanosis, Other (Left ankle wound) Neurological: Normal speech Laboratory Data (last 24 hrs) 11/21/20 06:00: Sodium 139, Potassium 3.6, BUN 30 H, Creatinine 1.44 H, Glucose 98 11/21/20 06:00: WBC 12.70 H D, Hgb 8.7 L, Hct 26.0 L, Plt Count 336 Conclusions/Impression: RUY/ CKD III -No NSAIDs -Recommend adequate hydration -Hold Lasix at this time. -Daily weight Hypokalemia -Replete with oral potassium Hypocalcemia -Continue Vitamin D3 -Start Calcitriol Severe Malnutrition -Continue Protein supplementation -Encourage nutrition Anemia in chronic illness Iron Deficiency -Monitor H&H -Continue MVI with iron -Start daily IV iron X8 Constipation -Continue Miralax and Colace Left ankle wound -Continue Ancef q8h -Continue probiotic TID CLBP, severe -Continue Lidocaine patch -PT as tolerated -Consider imaging as needed -Tizanidine prn
[2020-11-23] MEDS: SOD FERRIC GLUC COMPLX/SUCROSE 125 MG in NA CHLORIDE 0.9% 100 ML IV SCH (17:16)
[2020-11-23] MEDS: SODIUM CHLORIDE 0.9% 10ML INJ IV SCH (20:00)
[2020-11-23] MEDS: ROPINIROLE HCL 1 MG TAB PO SCH (20:19)
[2020-11-24] MEDS: CEFAZOLIN/SWI 1gm 1 GM/10 ML SYR IV SCH ×3 (00:07→17:16)
[2020-11-24 05:37] LABS: Absolute Lymphocytes (CBC) 0.7 K/uL (0.7-4.9); Basophils % 0.4 % (0-1.3); Hematocrit 23.3 % (39.6-49.0); MPV 8.4 fL (7.6-11.3); RBC Red Blood Cell Count 2.45 M/uL (4.33-5.43)
[2020-11-24 05:44] VITALS: BMI 27.0
[2020-11-24 05:56] LABS: Potassium 3.8 mmol/L (3.5-5.1)
[2020-11-24] MEDS: LEVOTHYROXINE SOD 0.05 MG TABLET PO SCH (06:34)
[2020-11-24] MEDS: FE SULF/FA/VIT B COMP & C TAB PO SCH (08:00)
[2020-11-24] MEDS: SODIUM CHLORIDE 0.9% 10ML INJ IV SCH ×2 (08:00→19:57)
[2020-11-24] MEDS: SOD FERRIC GLUC COMPLX/SUCROSE 125 MG in NA CHLORIDE 0.9% 100 ML IV SCH ×2 (08:00→15:34)
[2020-11-24] MEDS: CRANBERRY FRUIT EXTRACT 200 MG CAP PO SCH ×2 (08:45→19:56)
[2020-11-24] MEDS: VITAMIN D 5,000 UNIT CAP PO SCH (08:46)
[2020-11-24] MEDS: PANTOPRAZOLE 40MG TABLET PO SCH (08:46)
[2020-11-24] MEDS: APIXABAN 2.5 MG TABLET PO SCH ×2 (08:46→19:56)
[2020-11-24] MEDS: ASPIRIN EC 81 MG TAB PO SCH (08:46)
[2020-11-24] MEDS: LACTOBACILLUS/ACIDOPHILUS TAB PO SCH ×3 (08:46→19:56)
[2020-11-24] MEDS: AMIODARONE HCL 200 MG TAB PO SCH ×2 (08:47→19:56)
[2020-11-24] MEDS: POTASSIUM CL SA 10 MEQ TAB PO SCH (08:47)
[2020-11-24] MEDS: CODEINE 30MG/APAP 300MG TAB PO PRN (08:47)
[2020-11-24] MEDS: GABAPENTIN 300 MG CAP PO SCH ×2 (08:49→19:56)
[2020-11-24] MEDS: ENSURE ENLIVE 237 ML CAN PO SCH ×2 (08:50→19:57)
--- NOTE | 2020-11-24 12:20 | P.PN ---
Date of Service: 11/24/20 Vital Signs Temp Pulse Resp BP Pulse Ox 100 F 76 18 124/55 L 94 11/24/20 06:51 11/24/20 06:51 11/24/20 08:47 11/24/20 06:51 11/24/20 08:47 Medications Acetaminophen/Codeine Phosphate (Codeine 30mg/Apap 300mg Tab) 1 tab PO Q4HP PRN PRN Reason: Pain scale 8-10 (Severe) Last Admin: 11/24/20 08:47 Dose: 1 tab Documented by: Amiodarone HCl (Amiodarone Hcl 200 Mg Tab) 200 mg PO BID [facility] Last Admin: 11/24/20 08:47 Dose: 200 mg Documented by: Apixaban (Apixaban 2.5 Mg Tablet) 2.5 mg PO BID [facility] Last Admin: 11/24/20 08:46 Dose: 2.5 mg Documented by: Aspirin (Aspirin Ec 81 Mg Tab) 81 mg PO DAILY [facility] Last Admin: 11/24/20 08:46 Dose: 81 mg Documented by: Bisacodyl (Bisacodyl 10 Mg Rectal Supp) 10 mg ME DAILY PRN PRN Reason: CONSTIPATION Last Admin: 11/21/20 14:00 Dose: 10 mg Documented by: Cholecalciferol (Vitamin D 5,000 Unit Cap) 5,000 unit PO DAILY [facility] Last Admin: 11/24/20 08:46 Dose: 5,000 unit Documented by: Docusate Sodium (Docusate Na 100 Mg Cap) 100 mg PO BID PRN PRN Reason: CONSTIPATION Last Admin: 11/23/20 20:20 Dose: 100 mg Documented by: Gabapentin (Gabapentin 300 Mg Cap) 300 mg PO BID [facility] Last Admin: 11/24/20 08:49 Dose: 300 mg Documented by: Cefazolin Sodium (Ancef 1 Gm/10 Ml Swi Ivp) 1 gm in 10 mls @ 600 mls/hr IV Q8HR [facility] Stop: 12/26/20 09:01 Last Admin: 11/24/20 09:00 Dose: 10 mls Documented by: Ferric Sodium Gluconate Complex 125 mg/ Sodium Chloride 110 mls @ 100 mls/hr IV Q24H [facility] Stop: 11/30/20 17:05 Lactobacillus Acidoph/Bulgaricus (Lactobacillus/Acidophilus Tab) 1 tab PO TID [facility] Last Admin: 11/24/20 08:46 Dose: 1 tab Documented by: Levothyroxine Sodium (Levothyroxine Sod 0.05 Mg Tablet) 0.05 mg PO DAILYAC [facility] Last Admin: 11/24/20 06:34 Dose: 0.05 mg Documented by: Lidocaine (Lidocaine 4% Patch) 2 patch TOP DAILY [facility] Last Admin: 11/23/20 08:35 Dose: 2 patch Documented by: Multivitamins/Iron (Fe Sulf/Fa/Vit B Comp & C Tab) 1 tab PO DAILY WITH BREAKFAST [facility] Last Admin: 11/24/20 08:00 Dose: Not Given Documented by: Nutritional Formula (Ensure Enlive 237 Ml Can) 237 ml PO BID [facility] Last Admin: 11/24/20 08:50 Dose: 237 ml Documented by: Pantoprazole Sodium (Pantoprazole 40mg Tablet) 40 mg PO ACB [facility]; Protocol Last Admin: 11/24/20 08:46 Dose: 40 mg Documented by: Polyethylene Glycol (Polyethyl Gly 3350 17 Gm/Dose) 17 gm PO DAILY PRN PRN Reason: CONSTIPATION Potassium Chloride (Potassium Cl Sa 10 Meq Tab) 10 meq PO DAILY [facility] Last Admin: 11/24/20 08:47 Dose: 10 meq Documented by: Ropinirole HCl (Ropinirole Hcl 1 Mg Tab) 2 mg PO BEDTIME [facility] Last Admin: 11/23/20 20:19 Dose: 2 mg Documented by: Sodium Chloride (Sodium Chloride 0.9% 10ml Inj) 10 ml IV BID [facility] Last Admin: 11/24/20 08:00 Dose: 10 ml Documented by: Tizanidine HCl (Tizanidine 4 Mg Tablet) 4 mg PO BID PRN PRN Reason: MUSCLE SPASMS Last Admin: 11/22/20 19:14 Dose: 4 mg Documented by: Lab Results (last 24 hrs) 11/24/20 05:30: Procalcitonin 0.29 H 11/24/20 05:30: Lactic Acid 0.8 11/24/20 05:30: Sodium 141, Potassium 3.8, Chloride 107, Carbon Dioxide 30, BUN 32 H, Creatinine 1.28, Estimated GFR 53 L, Glucose 112 H, Calcium 7.7 L, Lactate Dehydrogenase 246 H 11/24/20 05:30: WBC 11.50 H, RBC 2.45 L, Hgb 7.8 L, Hct 23.3 L, MCV 95.1, MCH 31.7, MCHC 33.4, RDW 15.3 H, Plt Count 268, MPV 8.4, Neutrophils % 84.4 H, Lymphocytes % 6.0 L, Monocytes % 8.5, Eosinophils % 0.7, Basophils % 0.4, Absolute Neutrophils 9.7 H, Absolute Lymphocytes 0.7, Absolute Monocytes 1.0, Absolute Eosinophils 0.1, Absolute Basophils 0.1 Microbiology Results 11/19/20 18:10 Clean Catch Urine [place] Count - Final No growth. 11/19/20 18:10 Clean Catch Urine - Final No growth. Assessment/ Plan: Nephrology Feeling better today. Persistent waxing and waning back pain. CPS stable without CP or SOB No acute events overnight Vitals, medications, blood work and imaging reviewed in the chart. General: Oriented x3, Cooperative, No distress HEENT: Atraumatic Neck: Supple Respiratory: Clear to auscultation bilaterally Cardiovascular: No edema, Regular rate/rhythm Gastrointestinal: Soft and benign, Non-distended Musculoskeletal: No clubbing, No contractures Integumentary: No rashes, No cyanosis, Other (Left ankle wound) Neurological: Normal speech Laboratory Data (last 24 hrs) 11/21/20 06:00: Sodium 139, Potassium 3.6, BUN 30 H, Creatinine 1.44 H, Glucose 98 11/21/20 06:00: WBC 12.70 H D, Hgb 8.7 L, Hct 26.0 L, Plt Count 336 Conclusions/Impression: RUY/ CKD III -No NSAIDs -Recommend adequate hydration -Hold Lasix at this time. -Daily weight Hypokalemia -Replete with oral potassium prn Hypocalcemia -Continue Vitamin D3 -Continue Calcitriol Severe Malnutrition -Continue Protein supplementation -Encourage nutrition Anemia in chronic illness Iron Deficiency -Monitor H&H -Continue MVI with iron -Continue daily IV iron X8 Constipation -Continue Miralax and Colace Left ankle wound -Continue Ancef q8h -Continue probiotic TID CLBP, severe -Continue Lidocaine patch -PT as tolerated -Consider imaging as needed -Tizanidine prn
[2020-11-24] MEDS: LIDOCAINE 4% PATCH TOP SCH (12:51)
[2020-11-24] MEDS: ROPINIROLE HCL 1 MG TAB PO SCH (19:55)
[2020-11-24] MEDS: DOCUSATE NA 100 MG CAP PO SCH (19:56)
[2020-11-25] MEDS: CEFAZOLIN/SWI 1gm 1 GM/10 ML SYR IV SCH ×3 (00:42→16:37)
[2020-11-25 06:59] LABS: Absolute Lymphocytes (CBC) 0.9 K/uL (0.7-4.9); Basophils % 0.7 % (0-1.3); Hematocrit 22.5 % (39.6-49.0); Lymphocytes % 7.7 % (15.3-44.8); MPV 8.4 fL (7.6-11.3); RBC Red Blood Cell Count 2.35 M/uL (4.33-5.43)
[2020-11-25] MEDS: LEVOTHYROXINE SOD 0.05 MG TABLET PO SCH (07:47)
[2020-11-25] MEDS: SODIUM CHLORIDE 0.9% 10ML INJ IV SCH ×2 (08:00→20:00)
[2020-11-25] MEDS ORDERED: FUROSEMIDE 20 MG TABLET PO ONE (08:00)
[2020-11-25] MEDS: PANTOPRAZOLE 40MG TABLET PO SCH (09:01)
[2020-11-25] MEDS: DOCUSATE NA 100 MG CAP PO SCH ×2 (10:24→20:31)
[2020-11-25] MEDS: ASPIRIN EC 81 MG TAB PO SCH (10:24)
[2020-11-25] MEDS: POTASSIUM CL SA 10 MEQ TAB PO SCH (10:24)
[2020-11-25] MEDS: CODEINE 30MG/APAP 300MG TAB PO PRN (10:24)
[2020-11-25] MEDS: CRANBERRY FRUIT EXTRACT 200 MG CAP PO SCH ×2 (10:24→20:31)
--- NOTE | 2020-11-25 10:24 | RAD REPORT ---
EXAM DESCRIPTION: RAD - Chest Single View - 11/25/2020 6:02 am CLINICAL HISTORY: wheezing Chest pain. COMPARISON: No comparisons FINDINGS: Portable technique limits examination quality. [id number] bilateral interstitial lung opacities probably represents pulmonary edema. The heart is moderately enlarged in size with changes of a prior CABG noted. Dual lead pacer device is in plac e.Right-sided PICC line has tip in the SVC. IMPRESSION: Mild to moderate CHF pattern.
[2020-11-25] MEDS: AMIODARONE HCL 200 MG TAB PO SCH ×2 (10:25→20:31)
[2020-11-25] MEDS: LIDOCAINE 4% PATCH TOP SCH (10:25)
[2020-11-25] MEDS: APIXABAN 2.5 MG TABLET PO SCH ×2 (10:25→20:31)
[2020-11-25] MEDS: GABAPENTIN 300 MG CAP PO SCH ×2 (10:25→20:31)
[2020-11-25] MEDS: VITAMIN D 5,000 UNIT CAP PO SCH (10:25)
[2020-11-25] MEDS: LACTOBACILLUS/ACIDOPHILUS TAB PO SCH ×3 (10:25→20:31)
[2020-11-25] MEDS: ENSURE ENLIVE 237 ML CAN PO SCH ×2 (11:47→20:34)
--- NOTE | 2020-11-25 14:06 | FAST ---
[employer] FORM SHIFT START DATE/TIME: 11/25/2020 07:00 (CDT) SHIFT END DATE/TIME: 11/25/2020 19:00 (CDT) NAME DARYL MONTEZ DATE OF : 1935 DATE OF ADMISSION: 11/19/2020 17:42 (CDT) PHONE: AGE: 85 SSN# [id number] GENDER: Male ENCOUNTER PHYSICIAN: Dr. Carlos Webb M.D. ADMISSION DIAGNOSIS: - Orthopaedic Disorders 08 - Other Orthopaedic (08.9) ABSCESS OF LOWER LEG, FAILURE OF JOINT FUSION. RETAINED ORTH HARD. EATING: EATING - STEP 1: Does the patient complete the activity by him/herself with no assistance (physical, verbal/nonverbal cueing, setup/clean-up)? No. EATING - STEP 2: Does the patient need only setup/clean-up assistance from one helper? Yes. 1. [id number] ADMISSION PERFORMANCE: Setup or clean-up assistance CODE: 05 ORAL HYGIENE: ORAL HYGIENE - STEP 1: Does the patient complete the activity by him/herself with no assistance (physical, verbal/nonverbal cueing, setup/clean-up)? No. ORAL HYGIENE - STEP 2: Does the patient need only setup/clean-up assistance from one helper? Yes. 1. [id number] ADMISSION PERFORMANCE: Setup or clean-up assistance CODE: 05 TOILETING HYGIENE: TOILETING HYGIENE - STEP 1: Does the patient complete the activity by him/herself with no assistance (physical, verbal/nonverbal cueing, setup/clean-up)? No. TOILETING HYGIENE - STEP 2: Does the patient need only setup/clean-up assistance from one helper? No. TOILETING HYGIENE - STEP 3: Does the patient need only verbal/nonverbal cueing or touching/steadying/contact guard assistance fro m one helper? No. TOILETING HYGIENE - STEP 4: Does the patient need physical assistance - for example lifting or trunk support from one helper - wi th the helper providing less than half of the effort? No. TOILETING HYGIENE - STEP 5: Does the patient need physical assistance - for example lifting or trunk support from one helper - wi th the helper providing more than half of the effort? Yes. 1. [id number] ADMISSION PERFORMANCE: Substantial/maximal assistance CODE: 02 BATHING: Not assessed/no information CODE: - DRESSING - UPPER BODY: DRESSING - UPPER BODY - STEP 1: Does the patient complete the activity by him/herself with no assistance (physical, verbal/nonverbal cueing, setup/clean-up)? No. DRESSING - UPPER BODY - STEP 2: Does the patient need only setup/clean-up assistance from one helper? No. DRESSING - UPPER BODY - STEP 3: Does the patient need only verbal/nonverbal cueing or touching/steadying/contact guard assistance fro m one helper? Yes. 1. [id number] ADMISSION PERFORMANCE: Supervision or touching assistance CODE: 04 DRESSING - LOWER BODY: DRESSING - LOWER BODY - STEP 1: Does the patient complete the activity by him/herself with no assistance (physical, verbal/nonverbal cueing, setup/clean-up)? No. DRESSING - LOWER BODY - STEP 2: Does the patient need only setup/clean-up assistance from one helper? No. DRESSING - LOWER BODY - STEP 3: Does the patient need only verbal/nonverbal cueing or touching/steadying/contact guard assistance fro m one helper? No. DRESSING - LOWER BODY - STEP 4: Does the patient need physical assistance - for example lifting or trunk support from one helper - wi th the helper providing less than half of the effort? Yes. 1. [id number] ADMISSION PERFORMANCE: Partial/moderate assistance CODE: 03 PUTTING ON/TAKING OFF FOOTWEAR: FOOTWEAR - STEP 1: Does the patient complete the activity by him/herself with no assistance (physical, verbal/nonverbal cueing, setup/clean-up)? No. FOOTWEAR - STEP 2: Does the patient need only setup/clean-up assistance from one helper? No. FOOTWEAR - STEP 3: Does the patient need only verbal/nonverbal cueing or touching/steadying/contact guard assistance fro m one helper? No. FOOTWEAR - STEP 4: Does the patient need physical assistance - for example lifting or trunk support from one helper - wi th the helper providing less than half of the effort? Yes. 1. [id number] ADMISSION PERFORMANCE: Partial/moderate assistance CODE: 03 ROLL LEFT AND RIGHT: ROLL LEFT AND RIGHT - STEP 1: Does the patient complete the activity by him/herself with no assistance (physical, verbal/nonverbal cueing, setup/clean-up)? No. ROLL LEFT AND RIGHT - STEP 2: Does the patient need only setup/clean-up assistance from one helper? No. ROLL LEFT AND RIGHT - STEP 3: Does the patient need only verbal/nonverbal cueing or touching/steadying/contact guard assistance fro m one helper? No. ROLL LEFT AND RIGHT - STEP 4: Does the patient need physical assistance - for example lifting or trunk support from one helper - wi th the helper providing less than half of the effort? Yes. 1. [id number] ADMISSION PERFORMANCE: Partial/moderate assistance CODE: 03 SIT TO LYING: SIT TO LYING - STEP 1: Does the patient complete the activity by him/herself with no assistance (physical, verbal/nonverbal cueing, setup/clean-up)? No. SIT TO LYING - STEP 2: Does the patient need only setup/clean-up assistance from one helper? No. SIT TO LYING - STEP 3: Does the patient need only verbal/nonverbal cueing or touching/steadying/contact guard assistance fro m one helper? No. SIT TO LYING - STEP 4: Does the patient need physical assistance - for example lifting or trunk support from one helper - wi th the helper providing less than half of the effort? Yes. 1. [id number] ADMISSION PERFORMANCE: Partial/moderate assistance CODE: 03 LYING TO SITTING: LYING TO SITTING ON SIDE OF BED - STEP 1: Does the patient complete the activity by him/herself with no assistance (physical, verbal/nonverbal cueing, setup/clean-up)? No. LYING TO SITTING ON SIDE OF BED - STEP 2: Does the patient need only setup/clean-up assistance from one helper? No. LYING TO SITTING ON SIDE OF BED - STEP 3: Does the patient need only verbal/nonverbal cueing or touching/steadying/contact guard assistance fro m one helper? No. LYING TO SITTING ON SIDE OF BED - STEP 4: Does the patient need physical assistance - for example lifting or trunk support from one helper - wi th the helper providing less than half of the effort? Yes. 1. [id number] ADMISSION PERFORMANCE: Partial/moderate assistance CODE: 03 SIT TO STAND: SIT TO STAND - STEP 1: Does the patient complete the activity by him/herself with no assistance (physical, verbal/nonverbal cueing, setup/clean-up)? No. SIT TO STAND - STEP 2: Does the patient need only setup/clean-up assistance from one helper? No. SIT TO STAND - STEP 3: Does the patient need only verbal/nonverbal cueing or touching/steadying/contact guard assistance fro m one helper? No. SIT TO STAND - STEP 4: Does the patient need physical assistance - for example lifting or trunk support from one helper - wi th the helper providing less than half of the effort? Yes. 1. [id number] ADMISSION PERFORMANCE: Partial/moderate assistance CODE: 03 TRANSFERS: BED, CHAIR: CHAIR/[id number] TRANSFER - STEP 1: Does the patient complete the activity by him/herself with no assistance (physical, verbal/nonverbal cueing, setup/clean-up)? No. CHAIR/[id number] TRANSFER - STEP 2: Does the patient need only setup/clean-up assistance from one helper? No. CHAIR/[id number] TRANSFER - STEP 3: Does the patient need only verbal/nonverbal cueing or touching/steadying/contact guard assistance fro m one helper? No. CHAIR/[id number] TRANSFER - STEP 4: Does the patient need physical assistance - for example lifting or trunk support from one helper - wi th the helper providing less than half of the effort? Yes. 1. [id number] ADMISSION PERFORMANCE: Partial/moderate assistance CODE: 03 TRANSFER TOILET: Not attempted due to medical condition or safety concerns CODE: 88 TRANSFERS: CAR: Not assessed/no information CODE: - WALK 10 FEET: Not assessed/no information CODE: - 1 STEP (CURB): Not assessed/no information CODE: - PICKING UP OBJECT: Not assessed/no information CODE: - DOES THE PATIENT USE A WHEELCHAIR/SCOOTER? Q1. DOES THE PATIENT USE A WHEELCHAIR/SCOOTER?: Yes CODE: 1 WHEEL 50 FEET WITH TWO TURNS: WHEEL 50 FEET WITH TWO TURNS - STEP 1: Does the patient complete the activity by him/herself with no assistance (physical, verbal/nonverbal cueing, setup/clean-up)? No. WHEEL 50 FEET WITH TWO TURNS - STEP 2: Does the patient need only setup/clean-up assistance from one helper? No. WHEEL 50 FEET WITH TWO TURNS - STEP 3: Does the patient need only verbal/nonverbal cueing or touching/steadying/contact guard assistance fro m one helper? No. WHEEL 50 FEET WITH TWO TURNS - STEP 4: Does the patient need physical assistance - for example lifting or trunk support from one helper - wi th the helper providing less than half of the effort? Yes. 1. [id number] ADMISSION PERFORMANCE: Partial/moderate assistance CODE: 03 INDICATE THE TYPE OF WHEELCHAIR/SCOOTER USED: RR1. INDICATE THE TYPE OF WHEELCHAIR/SCOOTER USED.: Manual CODE: 1 WHEEL 150 FEET: Not assessed/no information CODE: - INDICATE THE TYPE OF WHEELCHAIR/SCOOTER USED: SS1. INDICATE THE TYPE OF WHEELCHAIR/SCOOTER USED.: Manual CODE: 1 BLADDER AND BOWEL: H350. BLADDER CONTINENCE (3-DAY ASSESSMENT PERIOD): Always continent (no documented incontinence) CODE: 0 H400. BOWEL CONTINENCE (3-DAY ASSESSMENT PERIOD): Always continent CODE: 0 SIGNATURE PANEL: The following modified sections: 1. [id number] Admission Performance, 1. [id number] Admission Performance, 1. [id number] Admission Performance, 1. FL3438f Admission Performance, 1. [id number] Admission Performance, 1. [id number] Admission Performance, 1. NN4147r Admission Performance, 1. DI4173H Admission Performance , 1. [id number] Admission Performance, 1. [id number] Admission Performance, 1. [id number] Admission Performanc e, 1. [id number] Admission Performance, 1. [id number] Admission Performance, Q1. Does the patient use a whe elchair/scooter?, 1. [id number] Admission Performance, RR1. Indicate the type of wheelchair/scooter used ., Code, SS1. Indicate the type of wheelchair/scooter used., H350. Bladder Continence (3-day assessme nt period), H400. Bowel Continence (3-day assessment period) were [electronically] signed by Martha JoynerNAbhijeet on ThuNov 25 2020 14:05:20 GMT-0500 (Central Daylight Time)
[2020-11-25] MEDS: SOD FERRIC GLUC COMPLX/SUCROSE 125 MG in NA CHLORIDE 0.9% 100 ML IV SCH (15:28)
[2020-11-25] MEDS: FUROSEMIDE 20 MG TABLET PO SCH (15:41)
--- NOTE | 2020-11-25 20:10 | P.PN ---
Date of Service: 11/25/20 Vital Signs Temp Pulse Resp BP Pulse Ox 97.9 F 60 22 H 107/50 L 96 11/25/20 15:42 11/25/20 15:42 11/25/20 15:42 11/25/20 15:42 11/25/20 15:42 Medications Acetaminophen/Codeine Phosphate (Codeine 30mg/Apap 300mg Tab) 1 tab PO Q4HP PRN PRN Reason: Pain scale 8-10 (Severe) Last Admin: 11/25/20 10:24 Dose: 1 tab Documented by: Amiodarone HCl (Amiodarone Hcl 200 Mg Tab) 200 mg PO BID [facility] Last Admin: 11/25/20 10:25 Dose: 200 mg Documented by: Apixaban (Apixaban 2.5 Mg Tablet) 2.5 mg PO BID [facility] Last Admin: 11/25/20 10:25 Dose: 2.5 mg Documented by: Aspirin (Aspirin Ec 81 Mg Tab) 81 mg PO DAILY [facility] Last Admin: 11/25/20 10:24 Dose: 81 mg Documented by: Bisacodyl (Bisacodyl 10 Mg Rectal Supp) 10 mg WA DAILY PRN PRN Reason: CONSTIPATION Last Admin: 11/21/20 14:00 Dose: 10 mg Documented by: Cholecalciferol (Vitamin D 5,000 Unit Cap) 5,000 unit PO DAILY [facility] Last Admin: 11/25/20 10:25 Dose: 5,000 unit Documented by: Docusate Sodium (Docusate Na 100 Mg Cap) 100 mg PO BID [facility] Last Admin: 11/25/20 10:24 Dose: 100 mg Documented by: Furosemide (Furosemide 20 Mg Tablet) 20 mg PO BIDL [facility] Last Admin: 11/25/20 15:41 Dose: 20 mg Documented by: Gabapentin (Gabapentin 300 Mg Cap) 300 mg PO BID [facility] Last Admin: 11/25/20 10:25 Dose: 300 mg Documented by: Cefazolin Sodium (Ancef 1 Gm/10 Ml Swi Ivp) 1 gm in 10 mls @ 600 mls/hr IV Q8HR [facility] Stop: 12/26/20 09:01 Last Admin: 11/25/20 16:37 Dose: 10 mls Documented by: Ferric Sodium Gluconate Complex 125 mg/ Sodium Chloride 110 mls @ 100 mls/hr IV Q24H [facility] Stop: 11/30/20 17:05 Last Admin: 11/25/20 15:28 Dose: 110 mls Documented by: Lactobacillus Acidoph/Bulgaricus (Lactobacillus/Acidophilus Tab) 1 tab PO TID [facility] Last Admin: 11/25/20 13:26 Dose: 1 tab Documented by: Levothyroxine Sodium (Levothyroxine Sod 0.05 Mg Tablet) 0.05 mg PO DAILYAC [facility] Last Admin: 11/25/20 07:47 Dose: 0.05 mg Documented by: Lidocaine (Lidocaine 4% Patch) 2 patch TOP DAILY [facility] Last Admin: 11/25/20 10:25 Dose: 2 patch Documented by: Multivitamins/Iron (Fe Sulf/Fa/Vit B Comp & C Tab) 1 tab PO DAILY WITH BREAKFAST [facility] Last Admin: 11/24/20 08:00 Dose: Not Given Documented by: Nutritional Formula (Ensure Enlive 237 Ml Can) 237 ml PO BID [facility] Last Admin: 11/25/20 11:47 Dose: 237 ml Documented by: Pantoprazole Sodium (Pantoprazole 40mg Tablet) 40 mg PO ACB [facility]; Protocol Last Admin: 11/25/20 09:01 Dose: 40 mg Documented by: Polyethylene Glycol (Polyethyl Gly 3350 17 Gm/Dose) 17 gm PO DAILY PRN PRN Reason: CONSTIPATION Potassium Chloride (Potassium Cl Sa 10 Meq Tab) 10 meq PO DAILY [facility] Last Admin: 11/25/20 10:24 Dose: 10 meq Documented by: Ropinirole HCl (Ropinirole Hcl 1 Mg Tab) 2 mg PO BEDTIME [facility] Last Admin: 11/24/20 19:55 Dose: 2 mg Documented by: Sodium Chloride (Sodium Chloride 0.9% 10ml Inj) 10 ml IV BID [facility] Last Admin: 11/25/20 08:00 Dose: 10 ml Documented by: Tizanidine HCl (Tizanidine 4 Mg Tablet) 4 mg PO BID PRN PRN Reason: MUSCLE SPASMS Last Admin: 11/22/20 19:14 Dose: 4 mg Documented by: Lab Results (last 24 hrs) 11/25/20 05:18: Procalcitonin 0.17 H 11/25/20 05:18: Sodium 143, Potassium 4.0, Chloride 110 H, Carbon Dioxide 30, BUN 27 H, Creatinine 1.17, Estimated GFR 59 L, Glucose 102, Calcium 7.9 L 11/25/20 05:18: WBC 11.60 H, RBC 2.35 L, Hgb 7.4 L, Hct 22.5 L, MCV 95.6, MCH 31.3, MCHC 32.7, RDW 15.4 H, Plt Count 253, MPV 8.4, Neutrophils % 82.5 H, Lymphocytes % 7.7 L, Monocytes % 8.2, Eosinophils % 0.9, Basophils % 0.7, Absolute Neutrophils 9.6 H, Absolute Lymphocytes 0.9, Absolute Monocytes 1.0, Absolute Eosinophils 0.1, Absolute Basophils 0.1 Microbiology Results 11/19/20 18:10 Clean Catch Urine [place] Count - Final No growth. 11/19/20 18:10 Clean Catch Urine - Final No growth. Assessment/ Plan: Nephrology Feeling better today. Persistent waxing and waning back pain. CPS stable without CP or SOB No acute events overnight Vitals, medications, blood work and imaging reviewed in the chart. General: Oriented x3, Cooperative, No distress HEENT: Atraumatic Neck: Supple Respiratory: Clear to auscultation bilaterally Cardiovascular: No edema, Regular rate/rhythm Gastrointestinal: Soft and benign, Non-distended Musculoskeletal: No clubbing, No contractures Integumentary: No rashes, No cyanosis, Other (Left ankle wound) Neurological: Normal speech Laboratory Data (last 24 hrs) 11/21/20 06:00: Sodium 139, Potassium 3.6, BUN 30 H, Creatinine 1.44 H, Glucose 98 11/21/20 06:00: WBC 12.70 H D, Hgb 8.7 L, Hct 26.0 L, Plt Count 336 Conclusions/Impression: RUY/ CKD III -No NSAIDs -Recommend adequate hydration -Hold Lasix at this time. -Daily weight Hypokalemia -Replete with oral potassium prn Hypocalcemia -Continue Vitamin D3 -Continue Calcitriol Severe Malnutrition -Continue Protein supplementation -Encourage nutrition Anemia in chronic illness Iron Deficiency -Monitor H&H -Continue MVI with iron -Continue daily IV iron X8 Constipation -Continue Miralax and Colace Left ankle wound -Continue Ancef q8h -Continue probiotic TID CLBP, severe -Continue Lidocaine patch -PT as tolerated -Consider imaging as needed -Tizanidine prn
[2020-11-25] MEDS: ROPINIROLE HCL 1 MG TAB PO SCH (20:31)
[2020-11-26] MEDS: CEFAZOLIN/SWI 1gm 1 GM/10 ML SYR IV SCH ×3 (01:04→16:46)
[2020-11-26 05:57] LABS: Basophils % 0.8 % (0-1.3); Hematocrit 22.7 % (39.6-49.0); Lymphocytes % 7.3 % (15.3-44.8); MPV 8.3 fL (7.6-11.3); RBC Red Blood Cell Count 2.38 M/uL (4.33-5.43)
[2020-11-26 06:24] LABS: Potassium 4.1 mmol/L (3.5-5.1)
[2020-11-26] MEDS: LEVOTHYROXINE SOD 0.05 MG TABLET PO SCH (06:58)
[2020-11-26] MEDS: PANTOPRAZOLE 40MG TABLET PO SCH (07:16)
[2020-11-26] MEDS: SODIUM CHLORIDE 0.9% 10ML INJ IV SCH ×2 (08:00→19:04)
[2020-11-26] MEDS: AMIODARONE HCL 200 MG TAB PO SCH ×2 (08:10→19:03)
[2020-11-26] MEDS: CODEINE 30MG/APAP 300MG TAB PO PRN ×2 (08:10→12:02)
[2020-11-26] MEDS: CRANBERRY FRUIT EXTRACT 200 MG CAP PO SCH ×2 (08:11→19:03)
[2020-11-26] MEDS: APIXABAN 2.5 MG TABLET PO SCH ×2 (08:11→19:03)
[2020-11-26] MEDS: POTASSIUM CL SA 10 MEQ TAB PO SCH (08:11)
[2020-11-26] MEDS: DOCUSATE NA 100 MG CAP PO SCH ×2 (08:11→19:03)
[2020-11-26] MEDS: GABAPENTIN 300 MG CAP PO SCH ×2 (08:11→19:03)
[2020-11-26] MEDS: ASPIRIN EC 81 MG TAB PO SCH (08:11)
[2020-11-26] MEDS: FUROSEMIDE 20 MG TABLET PO SCH ×2 (08:11→16:46)
[2020-11-26] MEDS: LACTOBACILLUS/ACIDOPHILUS TAB PO SCH ×3 (08:11→19:03)
[2020-11-26] MEDS: VITAMIN D 5,000 UNIT CAP PO SCH (08:13)
[2020-11-26] MEDS: ENSURE ENLIVE 237 ML CAN PO SCH ×2 (08:14→19:03)
[2020-11-26] MEDS: LIDOCAINE 4% PATCH TOP SCH (09:42)
--- NOTE | 2020-11-26 13:57 | PN ---
Date of Progress Note: 11/26/2020 Subjective: The patient is alert, awake, comfortable. His breathing is somewhat improved overall, b ut does get short of breath with activity. He has his left lower extremity cleanly dressed and lifte d. He is sitting in a wheelchair, has been putting pressure and weight on the right leg and has been tolerating physical therapy reasonably well. His Lasix has been started yesterday at 20 mg p.o. b.i .d. and the patient has been tolerating that well. He has had some urine output up to 2200 cc over t he last 24 hours and his breathing has stabilized with that. Objective: Vital signs: Seem stable. Blood pressure 128/58, pulse about 60 to 70 and regular, resp irations around 14, O2 sats are 95% on no oxygen. Lungs: Clear anteriorly. Abdomen: Soft. Extremities: Reveal right leg with 1 to 2 edema. Left leg cleanly dressed. Laboratory Data: Reviewed. WBC count 13.1, yesterday was 11.6. Hemoglobin, hematocrit 7.3 and jace tocrit 22.7. Platelet count is 255. Chemistry shows sodium 142, potassium 4.1, chloride 108, bicarb is 31, BUN 28, creatinine 1.16. Assessment And Plan: The patient with acute kidney injury, question chronic kidney disease, slight v olume overload. Clinically stable. Currently getting treated for left lower extremity abscess, cell ulitis, on antibiotics. Creatinine has improved down to 1 range. His volume status seems to be slig htly overloaded. Agree with Lasix use at low dose. Continue antibiotics. Monitor hemoglobin. If drops below 7, may need blood transf usion. /EDIN Voice ID: [id number] Report ID: [id number]
[2020-11-26] MEDS: BACLOFEN 10 MG TAB PO SCH (14:03)
--- NOTE | 2020-11-26 15:00 | R.PN ---
PROGRESS NOTES ENCOUNTER DATE AND TIME: 11/26/2020 14:55 (CDT) NAME DARYL MONTEZ DATE OF : 1935 DATE OF ADMISSION: 11/19/2020 17:42 (CDT) ABSCESS OF LOWER LEG, FAILURE OF JOINT FUSION. RETAINED ORTH HARDCHIEF COMPLAINT: Left leg abscess SUBJECTIVE: Pt denied any depression. Pt denied any Shortness of Breath. WBC increased to 13.1, Hgb down to 7.3, procalcitonin 0.17, chest x-ray from yesterday showed mild to moderate CHF pattern. He is back on lasix. He has a followup with his ortho on Thursday. However, h is left leg surgical wound his worsening and the surgeon will be contact for possible followup in the AM. VITAL SIGNS Temperature: 97.6 F SBP/DBP: 128/58 Pulse: 64 Resp: 16 MEDICATION ALLERGIES: PENICILLIN ENVIRONMENTAL ALLERGIES: - Substance Allergies None Known - Other Allergies None Known NURSING: - Shower allowing shower - Skin care per protocol PRECAUTIONS: - Weight Bearing Precaution NWB left LE ACTIVITIES OOB only with supervision THERAPIES: - Dietary and Nutrition Adequate Nutrition. Nutritional Education. Nutritional Supplements. PHYSICAL EXAM - Gen Alert and awake Lying in bed No apparent distress Oriented to: person, time, and place - Skin Left leg bandage in place with good hemostasis. Chronic left facial and neck surgery. - Eyes No abnormalities - ENMT Mild dysarthria - Neck Chronic left neck surgery. - CVS RRR - Chest No abnormalities - Abd + bowel sounds - GI Soft Deferred - No abnormalities - Ext Left leg surgical site has good hemostasis. - MSK 4/5 weakness in the left lower extremity. - Neuro 4/5 strength left lower extremities. - Psych No abnormalities ASSESSMENT: Pt. is a 85 yo Right-handed male.On 11/11/2020 he was admitted to [facility] with diagnosis ABSCESS OF LOWER LEG, FAILURE OF JOINT FUSION. RETAINED ORTH HARD.His impairment category is Orthopaedic Disord ers 08 - Other Orthopaedic (08.9).Pre-morbidly, Pt. was independent/mod-I in Locomotion, Balance, Tr ansfers Control, and Endurance; and he had good Sphincter Control.Currently, he has deficits of Trans fers Control, Endurance, and Sphincter Control.Pt. is now referred to [facility] for acute in-patient rehabilitation in order to maximize patient's functional independence in acti vities of daily living, strength, ROM, and mobility.- Rehab Goal Patient has realistic goal of being discharged at assistance level 7-Ind to reside at Home with Fami ly/Relatives. MDM/PLAN: - Physical Therapy Decreased range of motion - to improve, our physical therapists will perform initial evaluation of p t's status upon admission and devise an individualized program for increasing patient's Range of Paul on. Gait dysfunction - to improve, our physical therapists will perform initial evaluation of pt's statu s upon admission and devise an individualized program for Gait Training, and Wheel Chair mobility Inability to transfer - to improve, our physical therapists will perform initial evaluation of pt's status upon admission and devise an individualized program for Bed mobility Need for home safety evaluation - to improve, our physical therapists will perform initial evaluatio n of pt's status upon admission and devise an individualized program for Home Evaluation Need in caregiver upon discharge - to improve, our physical therapists will perform initial evaluati on of pt's status upon admission and devise an individualized program for Caregiver Training New precaution - to improve, our physical therapists will perform initial evaluation of pt's status upon admission and devise an individualized program for Patient precaution education Poor endurance - to improve, our physical therapists will perform initial evaluation of pt's status upon admission and devise an individualized program for Endurance Training Weakness - to improve, our physical therapists will perform initial evaluation of pt's status upon a dmission and devise an individualized program for Aquatic Therapy, Neuromuscular Reeducation, and Str engthening Achieving independence - to improve, our physical therapists will perform initial evaluation of pt's status upon admission and devise an individualized program for Community Reintegration Activities - Occupational Therapy Need for career transition specialist - to improve, our occupation therapists will perform initial evaluation of pt's status upon admission and devise an individualized program for Caregiver Training Weakness - to improve, our occupation therapists will perform initial evaluation of pt's status upon admission and devise an individualized program for Aquatic Therapy, Balance, Endurance, UE ROM, and UE strengthening - Other See attached MAR (Medication Administration Record) - Diet Type Continue Regular - Diet - Liquid Texture Continue Regular - Tube Feed Continue N/A - Weight Bearing Precaution NWB left LE - Skin care per protocol - Diet - Solid Texture Continue Regular - Shower allowing shower FUNCTIONAL STATUS: UPDATED AT WEEKLY TEAM CONFERENCE - Bladder Same accident frequency: 7-Ind - No accidents in the past 7 days - Bowel Same accident frequency: 7-Ind - No accidents in the past 7 days - Walking Same score based on distance walked: 0(N/A) Same score based on distance walked: 1(<=50ft) - Wheelchair Same score based on distance traveled: 0(N/A) FUNCTIONAL STATUS: - Self-Care A. Eating Romina B. Grooming sup C. Bathing modA D. Dressing - Upper Thomas E. Dressing - Lower modA F. Toileting modA - Sphincter Control G. Bladder control Thomas H. Bowel control Thomas - Transfers Control I. Bed/Chair/Wheelchair maxA J. Toilet maxA K. Tub/Shower maxA - Locomotion L. Walk/Wheelchair (B) modA M. Stairs ADNO - Communication N. Comprehension (B) Romina O. Expression (B) Romina - Social Cognition P. Social Interaction Ind Q. Problem Solving Romina R. Memory Romina - Endurance Poor - Balance Poor - Safety Awareness Fair QI SCORES: - Self-Care A. Eating 03-Partial/moderate assistance B. Oral hygiene 03-Partial/moderate assistance C. Toileting hygiene 03-Partial/moderate assistance E. Shower/bathe self 03-Partial/moderate assistance F. Upper body dressing 03-Partial/moderate assistance G. Lower body dressing 03-Partial/moderate assistance H. Putting on/taking off footwear 88-Not attempted due to medical condition or safety concerns - Mobility A. Roll left and right 04-Supervision or touching assistance B. Sit to lying 04-Supervision or touching assistance C. Lying to sitting on side of bed 03-Partial/moderate assistance D. Sit to stand 03-Partial/moderate assistance E. Chair/nxt-ia-iemuh transfer 03-Partial/moderate assistance F. Toilet transfer 03-Partial/moderate assistance G. Car transfer 88-Not attempted due to medical condition or safety concerns I. Walk 10 feet 88-Not attempted due to medical condition or safety concerns J. Walk 50 feet with two turns 88-Not attempted due to medical condition or safety concerns K. Walk 150 feet 88-Not attempted due to medical condition or safety concerns L. Walking 10 feet on uneven surfaces 88-Not attempted due to medical condition or safety concerns M. 1 step (curb) 88-Not attempted due to medical condition or safety concerns N. 4 steps O. 12 steps 88-Not attempted due to medical condition or safety concerns P. Picking up object 88-Not attempted due to medical condition or safety concerns R. Wheel 50 feet with two turns 88-Not attempted due to medical condition or safety concerns S. Wheel 150 feet 88-Not attempted due to medical condition or safety concerns - Bladder and Bowel Bladder continence Bowel continence - Endurance Fair - Balance Fair - Safety Awareness Fair CURRENT [facility]. DEFICITS: Self-Care, Mobility, Endurance, Balance, and Safety Awareness SIGNATURE PANEL: (CDT)
[2020-11-26] MEDS: SOD FERRIC GLUC COMPLX/SUCROSE 125 MG in NA CHLORIDE 0.9% 100 ML IV SCH (15:39)
[2020-11-26] MEDS: ROPINIROLE HCL 1 MG TAB PO SCH (19:03)
[2020-11-26] MEDS: TIZANIDINE 4 MG TABLET PO PRN (19:03)
[2020-11-27] MEDS: CEFAZOLIN/SWI 1gm 1 GM/10 ML SYR IV SCH ×2 (00:26→07:44)
[2020-11-27] MEDS: LEVOTHYROXINE SOD 0.05 MG TABLET PO SCH (06:36)
[2020-11-27] MEDS: PANTOPRAZOLE 40MG TABLET PO SCH (06:49)
[2020-11-27] MEDS: LIDOCAINE 4% PATCH TOP SCH (06:49)
[2020-11-27] MEDS: ENSURE ENLIVE 237 ML CAN PO SCH (07:39)
[2020-11-27] MEDS: GABAPENTIN 300 MG CAP PO SCH (07:40)
[2020-11-27] MEDS: BACLOFEN 10 MG TAB PO SCH (07:40)
[2020-11-27] MEDS: VITAMIN D 5,000 UNIT CAP PO SCH (07:40)
[2020-11-27] MEDS: DOCUSATE NA 100 MG CAP PO SCH (07:40)
[2020-11-27] MEDS: LACTOBACILLUS/ACIDOPHILUS TAB PO SCH ×2 (07:40→14:00)
[2020-11-27] MEDS: CRANBERRY FRUIT EXTRACT 200 MG CAP PO SCH (07:40)
[2020-11-27] MEDS: ASPIRIN EC 81 MG TAB PO SCH (07:40)
[2020-11-27] MEDS: AMIODARONE HCL 200 MG TAB PO SCH (07:41)
[2020-11-27] MEDS: APIXABAN 2.5 MG TABLET PO SCH (07:41)
[2020-11-27] MEDS: FUROSEMIDE 20 MG TABLET PO SCH (07:41)
[2020-11-27] MEDS: POTASSIUM CL SA 10 MEQ TAB PO SCH (07:41)
[2020-11-27] MEDS: SODIUM CHLORIDE 0.9% 10ML INJ IV SCH (07:42)
[2020-11-27] MEDS: CODEINE 30MG/APAP 300MG TAB PO PRN (07:42)
[2020-11-27 07:44] VITALS: BP 110/58
[2020-11-27 08:03] VITALS: TEMP 97.3
== END 2020-11-27 15:15 | disposition short-term general hospital (02) | DRG 602 ==
LOC: 5TH 17:42
PROVIDERS: ADMIT Psychiatry & Neurology Neurology with Special Qualifications in Child Neurology; ATTEND Psychiatry & Neurology Neurology with Special Qualifications in Child Neurology
DX: L02.416 Cutaneous abscess of left lower limb (principal); E43 Unspecified severe protein-calorie malnutrition; T84.098D Other mechanical complication of other internal joint prosthesis, subsequent encounter; Z85.46 Personal history of malignant neoplasm of prostate; Z88.0 Allergy status to penicillin; N18.30 Chronic kidney disease, stage 3 unspecified; Z68.27 Body mass index [BMI] 27.0-27.9, adult; D63.8 Anemia in other chronic diseases classified elsewhere; E83.51 Hypocalcemia; K59.00 Constipation, unspecified; E87.6 Hypokalemia; Z95.0 Presence of cardiac pacemaker
CPT/HCPCS: 36415; 71045; 72100; 80048; 80053; 81001; 82040; 82607; 82728; 82746; 82947; 83540; 83605; 83615; 83735; 84100; 84134; 84145; 84466; 84550; 85025; 87086; 87088; 94010; 97110; 97112; 97161; 97530; 97542; J0690; J2916; J3370; J7050; P9047